=== PATIENT | female | born 1950 | race Caucasian/White ===

== ENCOUNTER 2020-08-04 18:10 | Inpatient (IN) | payer MEDICARE, OTHER ==
--- NOTE | 2020-08-04 18:53 | ED ---
SOB HPI - General Chief Complaint: Shortness of Breath Stated Complaint: ARCELIA Time Seen by Provider: 08/04/20 18:12 Source: patient, EMS, RN notes reviewed, old records reviewed Mode of arrival: EMS Limitations: altered mental status, physical limitation - History of Present Illness Initial Comments: This is a 62-year-old female DF for evaluation patient presents in significant distress secondary to shortness of breath occasional altered mental status, patient is a poor strain secondary to underlying clinical condition.history is obtained by EMS and patient's prior charting MD Complaint: shortness of breath -: unknown Severity: moderate Severity scale (1-10): 7 Consistency: constant Improves With: oxygen Worsens With: nothing Known History Of: COPD, asthma Context: recent URI Associated Symptoms: denies other symptoms - Related Data Home Medications Medication Instructions Recorded Confirmed Calcium Carbonate/Vitamin D3 1 tab PO BID 03/05/16 11/07/16 [Calcium 600-Vit D3 400 Tablet] Fludrocortisone [Florinef] 0.1 mg PO HS 03/05/16 11/07/16 LORazepam [Ativan] 1 mg PO DAILY PRN 03/05/16 11/07/16 Levothyroxine Sodium 112 mcg PO DAILY 03/05/16 11/07/16 Meloxicam 15 mg PO DAILY 03/05/16 11/07/16 Multivitamins, Thera [Multivitamin 1 tab PO DAILY 03/05/16 11/07/16 (formulary)] Nystatin 100,000 Unit/gm Powd 1 applic TOPICAL BID PRN 03/05/16 11/07/16 [Mycostatin Powder] Potassium Chloride 20 meq PO BID 03/05/16 11/07/16 Ranitidine HCl 150 mg PO BID 03/05/16 11/07/16 carBAMazepine [TEGretol] 200 mg PO BID 03/05/16 11/07/16 diphenhydrAMINE HCL 25 mg PO HS 03/05/16 11/07/16 [Diphenhydramine HCl] metOLazone [Metolazone] 5 mg PO DAILY 03/05/16 11/07/16 hydrOXYzine HCL [Atarax] 25 mg PO HS 03/19/16 11/07/16 Docusate [Colace] 200 mg PO HS 03/26/16 11/07/16 Ensure 1 can PO DAILY 03/26/16 11/07/16 Allergies Allergy/AdvReac Type Severity Reaction Status Date / Time ciprofloxacin [From Cipro] Allergy Unknown Verified 08/04/20 21:15 ciprofloxacin HCl Allergy Unknown Verified 08/04/20 21:15 [From Cipro] doxycycline Allergy Unknown Verified 08/04/20 21:15 Hydantoins Allergy Unknown Verified 08/04/20 21:15 levofloxacin [From Levaquin] Allergy Unknown Verified 08/04/20 21:15 penicillin V Allergy Unknown Verified 08/04/20 21:15 phenytoin sodium Allergy Unknown Verified 08/04/20 21:15 [From Dilantin] phenytoin sodium extended Allergy Unknown Verified 08/04/20 21:15 [From Dilantin] Quinolones Allergy Unknown Verified 08/04/20 21:15 Sulfa (Sulfonamide Allergy Unknown Verified 08/04/20 21:15 Antibiotics) sulfamethoxazole Allergy Unknown Verified 08/04/20 21:15 [From Bactrim] Tetracyclines Allergy Unknown Verified 08/04/20 21:15 trimethoprim [From Bactrim] Allergy Unknown Verified 08/04/20 21:15 yellow dye Allergy Unknown Verified 08/04/20 21:15 Review of Systems ROS Statement: Those systems with pertinent positive or pertinent negative responses have been documented in the HPI. ROS Other: All systems not noted in ROS Statement are negative. Past Medical History Past Medical History: Heart Failure, GERD/Reflux, Seizure Disorder, Thyroid Disorder Additional Past Medical History / Comment(s): past constipation and afc home stated past bowel obstruction,incont of urine,SACRAL WOUND, epilepsy no seizure in at least 2 years since shes been at [facility] severe mentally handicapped,cerebral palsy, w/c bound, ABLE TO TALK SOME AND STAFF STATED SHE IS REPETITVE WITH WORDS AT TIMES. ON A SOFT CHOPPED FOOD DIET, NEEDS TO BE WATCHED WHEN EATS BECAUSE SHE WILL SHOVE A LOT OF FOOD IN HER MOUTH AT ONE TIME AND NEED TO OFFER FLUIDS. History of Any Multi-Drug Resistant Organisms: MRSA Date of last positivie culture/infection: 07/05/2015 MDRO Source:: buttock Past Surgical History: Hysterectomy, Tonsillectomy Additional Past Surgical History / Comment(s): COLOSTOMY, i&d/closure of sacral wound, PEG tube recently Past Anesthesia/Blood Transfusion Reactions: No Reported Reaction Past Psychological History: No Psychological Hx Reported Smoking Status: Never smoker Past Alcohol Use History: None Reported Past Drug Use History: None Reported - Past Family History Father Family Medical History: Unable to Obtain Mother Family Medical History: Unable to Obtain General Exam Limitations: altered mental status, physical limitation General appearance: alert, in no apparent distress Head exam: Present: atraumatic, normocephalic, normal inspection Eye exam: Present: normal appearance, PERRL, EOMI. Absent: scleral icterus, conjunctival injection, periorbital swelling ENT exam: Present: normal exam, mucous membranes moist Neck exam: Present: normal inspection. Absent: tenderness, meningismus, lymphadenopathy Respiratory exam: Present: normal lung sounds bilaterally. Absent: respiratory distress, wheezes, rales, rhonchi, stridor Cardiovascular Exam: Present: regular rate, normal rhythm, normal heart sounds. Absent: systolic murmur, diastolic murmur, rubs, gallop, clicks GI/Abdominal exam: Present: soft, normal bowel sounds. Absent: distended, tenderness, guarding, rebound, rigid Extremities exam: Present: normal inspection, full ROM, normal capillary refill. Absent: tenderness, pedal edema, joint swelling, calf tenderness Back exam: Present: normal inspection Neurological exam: Present: alert, oriented X3, CN II-XII intact Psychiatric exam: Present: normal affect, normal mood Skin exam: Present: warm, dry, intact, normal color. Absent: rash Course Vital Signs 08/04/20 08/04/20 08/04/20 18:11 19:00 19:25 Temperature 98.7 F Pulse Rate 67 70 60 Respiratory 26 H 26 H 20 Rate Blood Pressure 132/68 115/71 O2 Sat by Pulse 100 94 L 100 Oximetry 08/04/20 08/04/20 20:57 21:06 Temperature Pulse Rate 68 68 Respiratory Rate Blood Pressure O2 Sat by Pulse Oximetry - Reevaluation(s) Reevaluation #1: 08/04/20 21:14 medical record is reviewed - Consultations Consultation #1: spoke joey Burnette re admission and he agrees Medical Decision Making - Medical Decision Making 62 female DF for evaluation patient resents today for evaluation regarding shortness of breath, found to be significantly hyponatremic dehydrated is altered mental status. Patient be admitted ICU for evaluation and management - Lab Data Result diagrams: 08/04/20 18:41 08/04/20 18:41 Lab Results 08/04/20 08/04/20 08/04/20 Range/Units 18:41 18:41 18:41 WBC 7.8 (3.8-10.6) k/uL RBC 3.68 L (3.80-5.40) m/uL Hgb 10.6 L (11.4-16.0) gm/dL Hct 32.5 L (34.0-46.0) % MCV 88.4 (80.0-100.0) fL MCH 28.7 (25.0-35.0) pg MCHC 32.5 (31.0-37.0) g/dL RDW 15.7 H (11.5-15.5) % Plt Count 225 (150-450) k/uL Neutrophils % 71 % Lymphocytes % 18 % Monocytes % 6 % Eosinophils % 1 % Basophils % 2 % Neutrophils # 5.6 (1.3-7.7) k/uL Lymphocytes # 1.4 (1.0-4.8) k/uL Monocytes # 0.5 (0-1.0) k/uL Eosinophils # 0.1 (0-0.7) k/uL Basophils # 0.2 (0-0.2) k/uL PT 10.6 (9.0-12.0) sec INR 1.0 (<1.2) APTT 30.0 (22.0-30.0) sec Sodium 115 L* (137-145) mmol/L Potassium 5.5 H (3.5-5.1) mmol/L Chloride 78 L (98-107) mmol/L Carbon Dioxide 31 H (22-30) mmol/L Anion Gap 6 mmol/L BUN 20 H (7-17) mg/dL Creatinine 0.39 L (0.52-1.04) mg/dL Est GFR (CKD-EPI)AfAm >90 (>60 ml/min/1.73 sqM) Est GFR (CKD-EPI)NonAf >90 (>60 ml/min/1.73 sqM) Glucose 143 H (74-99) mg/dL POC Glucose (mg/dL) (75-99) mg/dL POC Glu Change Management Coordinator ID Calcium 8.2 L (8.4-10.2) mg/dL Magnesium 1.5 L (1.6-2.3) mg/dL Total Bilirubin 0.5 (0.2-1.3) mg/dL AST 42 H (14-36) U/L ALT 29 (4-34) U/L Alkaline Phosphatase 193 H (38-126) U/L Creatine Kinase 47 (30-135) U/L Troponin I (0.000-0.034) ng/mL NT-Pro-B Natriuret Pep pg/mL Total Protein 6.8 (6.3-8.2) g/dL Albumin 3.6 (3.5-5.0) g/dL 08/04/20 08/04/20 08/04/20 Range/Units 18:41 18:41 19:04 WBC (3.8-10.6) k/uL RBC (3.80-5.40) m/uL Hgb (11.4-16.0) gm/dL Hct (34.0-46.0) % MCV (80.0-100.0) fL MCH (25.0-35.0) pg MCHC (31.0-37.0) g/dL RDW (11.5-15.5) % Plt Count (150-450) k/uL Neutrophils % % Lymphocytes % % Monocytes % % Eosinophils % % Basophils % % Neutrophils # (1.3-7.7) k/uL Lymphocytes # (1.0-4.8) k/uL Monocytes # (0-1.0) k/uL Eosinophils # (0-0.7) k/uL Basophils # (0-0.2) k/uL PT (9.0-12.0) sec INR (<1.2) APTT (22.0-30.0) sec Sodium (137-145) mmol/L Potassium (3.5-5.1) mmol/L Chloride (98-107) mmol/L Carbon Dioxide (22-30) mmol/L Anion Gap mmol/L BUN (7-17) mg/dL Creatinine (0.52-1.04) mg/dL Est GFR (CKD-EPI)AfAm (>60 ml/min/1.73 sqM) Est GFR (CKD-EPI)NonAf (>60 ml/min/1.73 sqM) Glucose (74-99) mg/dL POC Glucose (mg/dL) 150 H (75-99) mg/dL POC Glu Change Management Coordinator ID Guru Cristina Calcium (8.4-10.2) mg/dL Magnesium (1.6-2.3) mg/dL Total Bilirubin (0.2-1.3) mg/dL AST (14-36) U/L ALT (4-34) U/L Alkaline Phosphatase (38-126) U/L Creatine Kinase (30-135) U/L Troponin I <0.012 (0.000-0.034) ng/mL NT-Pro-B Natriuret Pep 1110 pg/mL Total Protein (6.3-8.2) g/dL Albumin (3.5-5.0) g/dL - EKG Data -: EKG Interpreted by Me (EKG is sinus rhythm 68 NC 154 QRS 74 QTc 425) - Radiology Data Radiology results: report reviewed (CXR and CT chest abd pelvis is positive for pneumonia), image reviewed Critical Care Time Critical Care Time: Yes Total Critical Care Time: 31 Disposition Clinical Impression: Hyponatremia, Weak, Dehydration, Community acquired pneumonia Disposition: ADMITTED IP TO THIS HOSP Condition: Fair Is patient prescribed a controlled substance at d/c from ED?: No Referrals: Vitaliy Mendes MD [Primary Care Provider] - 1-2 days
[2020-08-04 18:56] LABS: Basophils # (A) 0.2 k/uL (0-0.2); Basophils % (A) 2 %; Eosinophils # (A) 0.1 k/uL (0-0.7); Eosinophils % (A) 1 %; HCT 32.5 % (34.0-46.0); HGB 10.6 gm/dL (11.4-16.0); Lymphocytes # (A) 1.4 k/uL (1.0-4.8); Lymphocytes % (A) 18 %; MCH 28.7 pg (25.0-35.0); MCHC 32.5 g/dL (31.0-37.0); MCV 88.4 fL (80.0-100.0); Mean Platelet Volume 7.8; Monocytes # (A) 0.5 k/uL (0-1.0); Monocytes % (A) 6 %; Neutrophils # (A) 5.6 k/uL (1.3-7.7); Neutrophils % (A) 71 %; Platelet Count 225 k/uL (150-450); RBC 3.68 m/uL (3.80-5.40); RDW 15.7 % (11.5-15.5); WBC 7.8 k/uL (3.8-10.6)
--- NOTE | 2020-08-04 19:01 | XR ---
EXAMINATION TYPE: XR chest 2V DATE OF EXAM: 08/04/2020 COMPARISON: NONE HISTORY: Difficulty breathing TECHNIQUE: FINDINGS: There is poor inspiration and atelectasis at the lung bases. Pulmonary vascularity is diffi cult to evaluate. There is no definite pleural effusion. IMPRESSION: Significant atelectasis at the lung bases. Left lower lobe pneumonia is possible. No obvi ous heart failure.
[2020-08-04 19:06] LABS: Prothrombin Time 10.6 sec (9.0-12.0)
[2020-08-04 19:07] LABS: ALT 29 U/L (4-34); AST 42 U/L (14-36); African American GFR (CKD) >90 (>60 ml/min/1.73 sqM); Albumin 3.6 g/dL (3.5-5.0); Alkaline Phosphatase 193 U/L (38-126); Blood Urea Nitrogen 20 mg/dL (7-17); Calcium 8.2 mg/dL (8.4-10.2); Carbon Dioxide 31 mmol/L (22-30); Chloride 78 mmol/L (98-107); Creatine Kinase 47 U/L (30-135); Glucose 143 mg/dL (74-99); Magnesium 1.5 mg/dL (1.6-2.3); Non-African American GFR(CKD) >90 (>60 ml/min/1.73 sqM); Potassium 5.5 mmol/L (3.5-5.1); Total Bilirubin 0.5 mg/dL (0.2-1.3); Total Protein 6.8 g/dL (6.3-8.2)
[2020-08-04 19:07] LABS: Glucose,Whole Blood 150 mg/dL (75-99)
[2020-08-04] MEDS ORDERED: LORazepam 2 MG/ML INJ IV STA (19:09)
[2020-08-04] MEDS ORDERED: MORPHINE SULFATE 2 MG/ML SYRINGE IVP STA (19:11)
[2020-08-04 19:14] LABS: Anion Gap 6 mmol/L
[2020-08-04 19:20] LABS: Sodium 115 mmol/L (137-145)
[2020-08-04] MEDS ORDERED: NALOXONE 0.4 MG/ML 1 ML VIAL IV PRN (19:43)
[2020-08-04] MEDS ORDERED: IPRATROPIUM-ALBUTEROL 3 ML NEB INHALATION STA (19:54)
[2020-08-04] MEDS ORDERED: MORPHINE SULFATE 2 MG/ML SYRINGE IV PRN (19:54)
--- NOTE | 2020-08-04 20:40 | CT ---
EXAMINATION TYPE: CT ChestAbdPelvis w con DATE OF EXAM: 08/04/2020 COMPARISON: None HISTORY: pain/sob CT DLP: 1683.5 mGycm Automated exposure control for dose reduction was used. CONTRAST: Performed with IV Contrast, patient injected with 100 mL of Isovue 300. Exam limited by motion. There is patchy infiltrate and atelectasis in both lungs. There is poor inspi ration and elevation of the left and right diaphragm. There is no mediastinal adenopathy. There are n o hilar masses. Heart size is fairly normal. There is interposition of the hepatic flexure of the col on. Spleen is intact. There is no focal liver defect. The bile ducts are not dilated. Gallbladder tin ears absent. There is gastrostomy tube noted. There is gastrostomy tube balloon that appears embedded in the abdominal wall. The tip of the gastrostomy tube is barely inside the stomach. There is no evidence of pancreatic mass. There is no adrenal mass. Kidneys show satisfactory contrast opacification. There is no hydronephrosis. Delayed images show normal renal excretion. Bladder diste nds smoothly. There is no inguinal hernia. There is no free fluid in the pelvis. There is no mesenter ic edema. There is no ascites or free air. There is no bowel obstruction. There is Loop colostomy In the left mid abdomen. there is rectal stump. There is some osteopenia and mild compression deformity of multiple lumbar and lower thoracic vertebr a. There is up to 25% loss of height. The bony pelvis is intact. The hip joints are intact. IMPRESSION: Poor inspiration with significant elevation of the diaphragms. Bilateral pulmonary atelectasis and in filtrate. Gastrostomy tube appears to be malpositioned and almost outside of the stomach.
--- NOTE | 2020-08-04 22:09 | XR ---
EXAMINATION TYPE: XR KUB DATE OF EXAM: 08/04/2020 COMPARISON: 05/26/2010 HISTORY: PEG tube injection TECHNIQUE: FINDINGS: There is some contrast in the stomach. There is no evidence of contrast extravasation. Ther e is contrast in both kidneys and ureters. Ladder distends smoothly without contrast. There is no sig n of intestinal obstruction or pneumoperitoneum. IMPRESSION: Nonacute abdomen. No evidence of contrast extravasation. PEG tube is not visible.
[2020-08-04 22:18] LABS: T4, Free (Free Thyroxine) 1.54 ng/dL (0.78-2.19)
[2020-08-04] MEDS: CEFEPIME 1 GM in SODIUM CHLORIDE 0.9% 50 ML IVPB SCH (22:24)
[2020-08-05 03:00] LABS: Basophils # (A) 0.2 k/uL (0-0.2); Basophils % (A) 3 %; Eosinophils # (A) 0.1 k/uL (0-0.7); Eosinophils % (A) 1 %; HCT 28.6 % (34.0-46.0); HGB 9.4 gm/dL (11.4-16.0); Lymphocytes # (A) 1.3 k/uL (1.0-4.8); Lymphocytes % (A) 16 %; MCH 29.4 pg (25.0-35.0); MCHC 32.9 g/dL (31.0-37.0); MCV 89.4 fL (80.0-100.0); Mean Platelet Volume 8.2; Monocytes # (A) 0.9 k/uL (0-1.0); Monocytes % (A) 11 %; Neutrophils # (A) 5.4 k/uL (1.3-7.7); Neutrophils % (A) 67 %; Platelet Count 220 k/uL (150-450); RDW 15.4 % (11.5-15.5); WBC 8.1 k/uL (3.8-10.6)
[2020-08-05 03:03] LABS: ALT 29 U/L (4-34); AST 44 U/L (14-36); African American GFR (CKD) >90 (>60 ml/min/1.73 sqM); Albumin 3.4 g/dL (3.5-5.0); Alkaline Phosphatase 194 U/L (38-126); Anion Gap 5 mmol/L; Blood Urea Nitrogen 21 mg/dL (7-17); Calcium 8.3 mg/dL (8.4-10.2); Carbon Dioxide 31 mmol/L (22-30); Chloride 79 mmol/L (98-107); Glucose 117 mg/dL (74-99); Magnesium 1.6 mg/dL (1.6-2.3); Non-African American GFR(CKD) >90 (>60 ml/min/1.73 sqM); Phosphorus 3.7 mg/dL (2.5-4.5); Potassium 5.9 mmol/L (3.5-5.1); Total Bilirubin 0.5 mg/dL (0.2-1.3); Total Protein 6.7 g/dL (6.3-8.2)
[2020-08-05 03:06] LABS: Sodium 115 mmol/L (137-145)
[2020-08-05] MEDS ORDERED: MAGNESIUM SULFATE-D5W PMX 1 GM in DEXTROSE/WATER 1 100ML.BAG IVPB ONE (03:34)
--- NOTE | 2020-08-05 03:35 | P.HPIM ---
History of Present Illness H&P Date: 08/04/20 Patient is a 70-year-old female with a PMH of cerebral palsy, paraplegic, minimally verbal, with a gastrostomy tube resident of [facility] in [place] who was sent to the emergency room due to shortness of breath. History obtained by the public guardian (Melva at [phone]). The patient was not answering questions or following commands. The public guardian reported that the patient is essentially bedbound and was noted to be short of breath and in some respiratory distress at the [facility], when they decided to send her to the emergency room. In the emergency room the chest, abdomen, and pelvis CT revealed bilateral pulmonary atelectasis and infiltrates. EKG revealed normal sinus rhythm at [address]/T-wave changes noted. Laboratory evaluation revealed a sodium of 115, potassium 5.5, chloride 78, CO2 31, BUN 20, creatinine 0.39, glucose 143, magnesium 1.5, with TSH 10.8, and cortisol 26. Discussed with the [facility] staff, no known head trauma noted. Review of Systems ROS unobtainable: due to mental status Past Medical History Past Medical History: Heart Failure, GERD/Reflux, Seizure Disorder, Thyroid Disorder Additional Past Medical History / Comment(s): past constipation and afc home stated past bowel obstruction,incont of urine,SACRAL WOUND, epilepsy no seizure in at least 2 years since shes been at [facility] severe mentally mckenzie ndicapped,cerebral palsy, w/c bound, ABLE TO TALK SOME AND STAFF STATED SHE IS REPETITVE WITH WORDS AT TIMES. ON A SOFT CHOPPED FOOD DIET, NEEDS TO BE WATCHED WHEN EATS BECAUSE SHE WILL SHOVE A LOT OF FOOD IN HER MOUTH AT ONE TIME AND NEED TO OFFER FLUIDS. History of Any Multi-Drug Resistant Organisms: MRSA Date of last positivie culture/infection: 07/05/2015 MDRO Source:: buttock Past Surgical History: Hysterectomy, Tonsillectomy Additional Past Surgical History / Comment(s): COLOSTOMY, i&d/closure of sacral wound, PEG tube recently Past Anesthesia/Blood Transfusion Reactions: No Reported Reaction Past Psychological History: No Psychological Hx Reported Smoking Status: Never smoker Past Alcohol Use History: None Reported Past Drug Use History: None Reported - Past Family History Father Family Medical History: Unable to Obtain Mother Family Medical History: Unable to Obtain Medications and Allergies Home Medications Medication Instructions Recorded Confirmed Type Fludrocortisone [Florinef] 0.1 mg PEG/G-TUBE DAILY 03/05/16 08/04/20 History LORazepam [Ativan] 1 mg PEG/G-TUBE DAILY PRN 03/05/16 08/04/20 History Levothyroxine Sodium 112 mcg PEG/G-TUBE DAILY 03/05/16 08/04/20 History Acetaminophen Tab [Tylenol] 650 mg PEG/G-TUBE Q4H PRN 08/04/20 08/04/20 History Amiodarone [Cordarone] 200 mg PEG/G-TUBE DAILY 08/04/20 08/04/20 History Apixaban [Eliquis] 5 mg PEG/G-TUBE BID 08/04/20 08/04/20 History Aspirin EC [Ecotrin Low Dose] 81 mg PEG/G-TUBE DAILY 08/04/20 08/04/20 History Atorvastatin Calcium [Lipitor] 40 mg PEG/G-TUBE HS 08/04/20 08/04/20 History Azithromycin [Zithromax] See Taper PEG/G-TUBE HS 08/04/20 08/04/20 History Baclofen [Lioresal] 20 mg PEG/G-TUBE BID 08/04/20 08/04/20 History Eslicarbazepine Acetate [Aptiom] 600 mg PEG/G-TUBE DAILY 08/04/20 08/04/20 His tory Famotidine [Pepcid] 20 mg PEG/G-TUBE BID 08/04/20 08/04/20 History Furosemide [Lasix] 20 mg PEG/G-TUBE BID 08/04/20 08/04/20 History Ibuprofen [Motrin Ib] 200 mg PEG/G-TUBE Q6H PRN 08/04/20 08/04/20 History Ketoconazole 2% Cream [Nizoral 2%] 1 applic TOPICAL BID PRN 08/04/20 08/04/20 Hi story Losartan Potassium 50 mg PEG/G-TUBE Q12H 08/04/20 08/04/20 History Magnesium Hydroxide [Milk of 2,400 mg PEG/G-TUBE Q72H 08/04/20 08/04/20 History Magnesia] Magnesium Oxide 400 mg PEG/G-TUBE Q12H 08/04/20 08/04/20 History Metoprolol Tartrate [Lopressor] 75 mg PEG/G-TUBE Q12H 08/04/20 08/04/20 History Potassium Chloride See Taper PEG/G-TUBE DIRECTED 08/04/20 08/04/20 History Sennosides [Senna] 17.2 mg PEG/G-TUBE HS 08/04/20 08/04/20 History guaiFENesin [guaiFENesin Oral 200 mg PEG/G-TUBE Q4H PRN 08/04/20 08/04/20 History Solution] polyethylene glycoL 3350 [Miralax] 17 gm PEG/G-TUBE DAILY 08/04/20 08/04/20 History Allergies Allergy/AdvReac Type Severity Reaction Status Date / Time ciprofloxacin [From Cipro] Allergy Unknown Verified 08/04/20 21:15 ciprofloxacin HCl Allergy Unknown Verified 08/04/20 21:15 [From Cipro] doxycycline Allergy Unknown Verified 08/04/20 21:15 Hydantoins Allergy Unknown Verified 08/04/20 21:15 levofloxacin [From Levaquin] Allergy Unknown Verified 08/04/20 21:15 penicillin V Allergy Unknown Verified 08/04/20 21:15 phenytoin sodium Allergy Unknown Verified 08/04/20 21:15 [From Dilantin] phenytoin sodium extended Allergy Unknown Verified 08/04/20 21:15 [From Dilantin] Quinolones Allergy Unknown Verified 08/04/20 21:15 Sulfa (Sulfonamide Allergy Unknown Verified 08/04/20 21:15 Antibiotics) sulfamethoxazole Allergy Unknown Verified 08/04/20 21:15 [From Bactrim] Tetracyclines Allergy Unknown Verified 08/04/20 21:15 trimethoprim [From Bactrim] Allergy Unknown Verified 08/04/20 21:15 yellow dye Allergy Unknown Verified 08/04/20 21:15 Physical Exam Vitals: Vital Signs Temp Pulse Resp BP Pulse Ox 08/04/20 21:06 68 08/04/20 20:57 68 08/04/20 20:25 68 20 130/87 94 L 08/04/20 19:25 60 20 100 08/04/20 19:00 70 26 H 115/71 94 L 08/04/20 18:11 98.7 F 67 26 H 132/68 100 Intake and Output 08/04/20 08/04/20 08/04/20 06:59 14:59 22:59 Other: Weight 90.718 kg General: Elderly female, chronically ill appearing, no distress, appears at stated age, obese Derm: no unusual rashes/lesions no unusual ecchymoses, warm, dry, Head: atraumatic, normocephalic, symmetric Eyes: EOMI, no lid lag, anicteric sclera, pupils equal round reactive to light ENT: Nose and ears atraumatic, no thrush, no pharyngeal erythema Neck: No thyromegaly, no cervical lymphadenopathy, trachea midline, supple Mouth: no lip lesion, mucus membranes dry Cardiovascular: S1S2 reg, no murmur, positive posterior tibial pulse bilateral, no edema, capillary refill less than 2 seconds Lungs: Bilateral scattered rhonchi,, no rales , no accessory muscle use Abdominal: soft, gastrotomy tube in plac,e nontender to palpation, no guarding, no appreciable organomegaly, normal bowel sounds Ext: Bilateral lower extremity wasting noted, lower extremity contractures Neuro: Not following commands, answering very basic questions Results CBC & Chem 7: 08/05/20 02:14 08/05/20 02:14 Labs: Abnormal Lab Results - Last 24 Hours (Table) 08/04/20 08/04/20 08/04/20 Range/Units 18:41 18:41 19:04 RBC 3.68 L (3.80-5.40) m/uL Hgb 10.6 L (11.4-16.0) gm/dL Hct 32.5 L (34.0-46.0) % RDW 15.7 H (11.5-15.5) % Sodium 115 L* (137-145) mmol/L Potassium 5.5 H (3.5-5.1) mmol/L Chloride 78 L (98-107) mmol/L Carbon Dioxide 31 H (22-30) mmol/L BUN 20 H (7-17) mg/dL Creatinine 0.39 L (0.52-1.04) mg/dL Glucose 143 H (74-99) mg/dL POC Glucose (mg/dL) 150 H (75-99) mg/dL Calcium 8.2 L (8.4-10.2) mg/dL Magnesium 1.5 L (1.6-2.3) mg/dL AST 42 H (14-36) U/L Alkaline Phosphatase 193 H (38-126) U/L Assessment and Plan Plan: Severe hypochloremic hyponatremia in setting of pneumonia and dehydration -Obtain urine creatinine, sodium, and urea. Obtain serum and urine osmolality. Calculate FeNa once results available. -Neurochecks q4h -Monitor BMP q6h -Admit to MICU -Nephrology consult -Avoid over-correction with goal of no more than 6 mEq in 24 hours -NS infusion @ 50 ml/hr Shortness of breath, likely secondary to pneumonia -C/w Cefepime -F/u blood culture -Test for Coronavirus Hypomagnesemia -Replace and monitor PEG tube malpositioned -Tube re-inserted into stomach by ED staff -Repeat X-ray with contrast injection noted no extravasation DVT prophylaxis -Eliquis The patient is admitted with an anticipated greater than 2 midnight stay for evaluation of hyponatremia CODE STATUS: Full Code Discussed with: Public guardian Anticipated discharge date: 3-[address]: senior living A total of 50 minutes was spent on the care of this complex patient more than 50% of the time was spent in counseling and care coordination.
[2020-08-05] MEDS ORDERED: SODIUM CHLORIDE 0.9% 250 ML IV SCH (03:45)
[2020-08-05] MEDS ORDERED: CALCIUM GLUCONATE 1 GM in SODIUM CHLORIDE 0.9% 100 ML IVPB ONE (03:55)
[2020-08-05] MEDS ORDERED: SODIUM POLYSTYRENE SULFONATE 15 GM/60 ML BOTTLE PEG/G-TUBE STA (04:07)
[2020-08-05 04:46] LABS: Creatinine,Urine Random 39.6 mg/dL
--- NOTE | 2020-08-05 04:46 | CT ---
EXAM: CT Head Without Intravenous Contrast CLINICAL HISTORY: ITS.REASON CT Reason: Severe hyponatremia, check for brain lesions TECHNIQUE: Axial computed tomography images of the head/brain without intravenous contrast. CTDI is 49.27 mGy and DLP is 1157.40 mGy-cm. This CT exam was performed using one or more of the following dose reduction techniques: automated exposure control, adjustment of the mA and/or kV according to patient size, and/or use of iterative reconstruction technique. Coronal and sagittal reformatted images were created and reviewed. COMPARISON: No relevant prior studies available. 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 No hemorrhage. Ventricles: Severe ventriculomegaly with cortical thinning in periventricular gliosis, worse in frontal lobes. Bones/joints: Unremarkable. No acute fracture. Soft tissues: Unremarkable. Sinuses: Small air-fluid level in left maxillary sinus. Mastoid air cells: Opacification of right mastoid air cells. 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 No intracranial mass lesion identified. If this remains a concern, MRI may help to further evaluate if patient is a candidate.
[2020-08-05] MEDS ORDERED: LEVOTHYROXINE 112 MCG TAB PEG/G-TUBE SCH (06:30)
[2020-08-05] MEDS: IPRATROPIUM-ALBUTEROL 3 ML NEB INHALATION SCH ×4 (07:25→21:02)
[2020-08-05] MEDS ORDERED: CLOTRIMAZOLE 1% CREAM 15 GM TUBE TOPICAL PRN (07:48)
[2020-08-05] MEDS ORDERED: LORazepam 1 MG TAB PEG/G-TUBE PRN (07:48)
[2020-08-05 08:09] LABS: Glucose,Whole Blood 100 mg/dL (75-99)
[2020-08-05 09:48] LABS: African American GFR (CKD) >90 (>60 ml/min/1.73 sqM); Anion Gap 2 mmol/L; Blood Urea Nitrogen 17 mg/dL (7-17); Calcium 7.9 mg/dL (8.4-10.2); Carbon Dioxide 32 mmol/L (22-30); Chloride 83 mmol/L (98-107); Glucose 94 mg/dL (74-99); Magnesium 1.6 mg/dL (1.6-2.3); Non-African American GFR(CKD) >90 (>60 ml/min/1.73 sqM); Potassium 4.9 mmol/L (3.5-5.1)
[2020-08-05 10:05] LABS: Sodium 117 mmol/L (137-145)
[2020-08-05] MEDS ORDERED: SODIUM CHLORIDE 0.9% 1,000 ML IV SCH (12:15)
--- NOTE | 2020-08-05 12:19 | P.PN ---
Subjective Progress Note Date: 08/05/20 Patient was seen and evaluated by me in the ICU. She is awake and alert. She was placed on BiPAP this morning. She was on high flow nasal cannula at 15 L before that and was having episodes of apnea. Patient denies any pain or discomfort. Objective - Vital Signs Vital signs: Vital Signs Temp 98.4 F 08/05/20 06:49 Pulse 67 08/05/20 12:05 Resp 29 H 08/05/20 08:20 BP 118/69 08/05/20 06:49 Pulse Ox 97 08/05/20 08:20 Intake & Output 08/04/20 08/05/20 08/05/20 18:59 06:59 18:59 Weight 90.718 kg - Exam General: The patient is awake and alert, she appears chronically ill Eye: there is normal conjunctiva bilaterally. Neck: The neck is supple, there is no JVD. Cardiovascular: Normal S1-S2, no S3-S4, no murmurs. Respiratory: Lungs with BiPAP sounds Gastrointestinal: Abdomen is soft, nontender Musculoskeletal: There is +1 pedal edema. Skin: Skin is warm and dry - Labs CBC & Chem 7: 08/05/20 02:14 08/05/20 08:20 Labs: Abnormal Lab Results - Last 24 Hours (Table) 08/04/20 08/04/20 08/04/20 Range/Units 18:41 18:41 18:41 RBC 3.68 L (3.80-5.40) m/uL Hgb 10.6 L (11.4-16.0) gm/dL Hct 32.5 L (34.0-46.0) % RDW 15.7 H (11.5-15.5) % Sodium 115 L* (137-145) mmol/L Potassium 5.5 H (3.5-5.1) mmol/L Chloride 78 L (98-107) mmol/L Carbon Dioxide 31 H (22-30) mmol/L BUN 20 H (7-17) mg/dL Creatinine 0.39 L (0.52-1.04) mg/dL Glucose 143 H (74-99) mg/dL POC Glucose (mg/dL) (75-99) mg/dL Osmolality (280-301) mosm/kg Calcium 8.2 L (8.4-10.2) mg/dL Magnesium 1.5 L (1.6-2.3) mg/dL AST 42 H (14-36) U/L Alkaline Phosphatase 193 H (38-126) U/L Albumin (3.5-5.0) g/dL TSH 10.800 H (0.465-4.680) mIU/L 08/04/20 08/05/20 08/05/20 Range/Units 19:04 02:14 02:14 RBC 3.20 L (3.80-5.40) m/uL Hgb 9.4 L (11.4-16.0) gm/dL Hct 28.6 L (34.0-46.0) % RDW (11.5-15.5) % Sodium 115 L* (137-145) mmol/L Potassium 5.9 H (3.5-5.1) mmol/L Chloride 79 L (98-107) mmol/L Carbon Dioxide 31 H (22-30) mmol/L BUN 21 H (7-17) mg/dL Creatinine 0.37 L (0.52-1.04) mg/dL Glucose 117 H (74-99) mg/dL POC Glucose (mg/dL) 150 H (75-99) mg/dL Osmolality (280-301) mosm/kg Calcium 8.3 L (8.4-10.2) mg/dL Magnesium (1.6-2.3) mg/dL AST 44 H (14-36) U/L Alkaline Phosphatase 194 H (38-126) U/L Albumin 3.4 L (3.5-5.0) g/dL TSH (0.465-4.680) mIU/L 08/05/20 08/05/20 08/05/20 Range/Units 03:47 08:07 08:20 RBC (3.80-5.40) m/uL Hgb (11.4-16.0) gm/dL Hct (34.0-46.0) % RDW (11.5-15.5) % Sodium 117 L* (137-145) mmol/L Potassium (3.5-5.1) mmol/L Chloride 83 L (98-107) mmol/L Carbon Dioxide 32 H (22-30) mmol/L BUN (7-17) mg/dL Creatinine 0.32 L (0.52-1.04) mg/dL Glucose (74-99) mg/dL POC Glucose (mg/dL) 100 H (75-99) mg/dL Osmolality 250 L (280-301) mosm/kg Calcium 7.9 L (8.4-10.2) mg/dL Magnesium (1.6-2.3) mg/dL AST (14-36) U/L Alkaline Phosphatase (38-126) U/L Albumin (3.5-5.0) g/dL TSH (0.465-4.680) mIU/L Assessment and Plan Assessment: Patient is a 70-year-old female with a PMH of cerebral palsy, paraplegic, minimally verbal, with a gastrostomy tube resident of [facility] who was sent to the emergency room due to shortness of breath. Patient has a public guardian (Melva at [phone]). Patient was evaluated in the ER and admitted to the hospital for further management of her medical problems noted below 1. Acute hypoxic respiratory failure, currently on BiPAP. Continue to monitor in the ICU. Managed by pulmonology. 2. Left lower lobe pneumonia, with concerns about aspiration. Started on broad-spectrum antibiotic with cefepime and clindamycin. Pro-calcitonin and blood culture pending. Coronavirus PCR negative 3. Severe hyponatremia with sodium level of 115 on presentation. Hypovolemic hyponatremia. Nephrology consulted. Avoid overcorrection. Currently on IV fl uid with normal saline at 60 mg per hour. 4. Hypomagnesemia, replacement ordered. Repeat lab work in the morning. 5. PEG tube malpositioned, adjusted by ED physician. Gen. surgery consulted for further evaluation. Repeat x-ray with contrast showed no evidence of extravasation 6. History of cerebral palsy with severe intellectual disability chronically nonverbal Chronic medical problems: Hypothyroidism, hyperlipidemia, chronic anticoagulation with Eliquis. Continue home medication
--- NOTE | 2020-08-05 12:20 | P.CNPUL ---
History of Present Illness Consult date: 08/05/20 Requesting physician: Marcia Steele Reason for consult: pneumonia Chief complaint: Shortness of breath History of present illness: This is a 70-year-old female with history of multiple medical problems, patient is paraplegic, known history of cerebral palsy, resides at [facility] in [place]. Patient was sent to the ER mostly because she was noted to have shortness of breath, and noted to have in respiratory distress at the longterm. Patient was sent to the ER, and she had multiple abnormal findings including abnormal chest x-ray showing bibasilar atelectasis/infiltrates. Abnormal CT of the abdomen and pelvis confirming the same, abnormal electrolytes with low sodium of 1:15 and elevated potassium of 5.5. Abnormal TSH. Patient had a chronic indwelling PEG tube, and she had a colostomy in place. The patient is nonverbal, considering the multiple abnormalities noted patient was admitted to the ICU, and I was asked to see her on consultation. Upon my initial evaluation, the patient was noted to be in respiratory distress, seems to be working hard to take a deep breath. She was on a Ventimask, and I recommended switching the Ventimask to a BiPAP with IPAP o f 12 and EPAP of 6, and FiO2 of 40%. As soon as the patient was placed on BiPAP, there was clearly evidence of improvement in her respiratory status and was not working as hard to breathe. Hence kept on BiPAP. Reviewed her chest x- ray patient may have paralyzed diaphragms since they seem to be extremely elevated on both sides. Patient may also have aspiration pneumonia although the patient is nothing by mouth, and she has a PEG tube in place used for nutritional support. Hence I recommended broadening the spectrum of coverage with antibiotics, added clindamycin to her cefepime. Patient has multiple ALLERGIES including ALLERGY to penicillin. In the ER, patient was given IV fluids in the form of 0.9 normal saline, she was noted to be clinically dehydrated, repeat sodium in the ICU came up to 117 from 115 on admission. And her potassium came down to 4.9 from 5.9. PCR for covid 19 came back negative. Review of Systems ROS unobtainable: due to mental status Past Medical History Past Medical History: Heart Failure, GERD/Reflux, Seizure Disorder, Thyroid Disorder Additional Past Medical History / Comment(s): past constipation and afc home stated past bowel obstruction,incont of urine,SACRAL WOUND, epilepsy no seizure in at least 2 years since shes been at [facility]., severe mentally handicapped,cerebral palsy, w/c bound, ABLE TO TALK SOME AND STAFF STATED SHE IS REPETITVE WITH WORDS AT TIMES. ON A SOFT CHOPPED FOOD DIET, NEEDS TO BE WATCHED WHEN EATS BECAUSE SHE WILL SHOVE A LOT OF FOOD IN HER MOUTH AT ONE TIME AND NEED TO OFFER FLUIDS. History of Any Multi-Drug Resistant Organisms: MRSA Date of last positivie culture/infection: 07/05/2015 MDRO Source:: buttock Past Surgical History: Hysterectomy, Tonsillectomy Additional Past Surgical History / Comment(s): COLOSTOMY, i&d/closure of sacral wound, PEG tube recently Past Anesthesia/Blood Transfusion Reactions: No Reported Reaction Past Psychological History: No Psychological Hx Reported Smoking Status: Never smoker Past Alcohol Use History: None Reported Past Drug Use History: None Reported - Past Family History Father Family Medical History: Unable to Obtain Mother Family Medical History: Unable to Obtain Medications and Allergies Home Medications Medication Instructions Recorded Confirmed Type Fludrocortisone [Florinef] 0.1 mg PEG/G-TUBE DAILY 03/05/16 08/04/20 History LORazepam [Ativan] 1 mg PEG/G-TUBE DAILY PRN 03/05/16 08/04/20 History Levothyroxine Sodium 112 mcg PEG/G-TUBE DAILY 03/05/16 08/04/20 History Acetaminophen Tab [Tylenol] 650 mg PEG/G-TUBE Q4H PRN 08/04/20 08/04/20 History Amiodarone [Cordarone] 200 mg PEG/G-TUBE DAILY 08/04/20 08/04/20 History Apixaban [Eliquis] 5 mg PEG/G-TUBE BID 08/04/20 08/04/20 History Aspirin EC [Ecotrin Low Dose] 81 mg PEG/G-TUBE DAILY 08/04/20 08/04/20 History Atorvastatin Calcium [Lipitor] 40 mg PEG/G-TUBE HS 08/04/20 08/04/20 History Azithromycin [Zithromax] See Taper PEG/G-TUBE HS 08/04/20 08/04/20 History Baclofen [Lioresal] 20 mg PEG/G-TUBE BID 08/04/20 08/04/20 History Eslicarbazepine Acetate [Aptiom] 600 mg PEG/G-TUBE DAILY 08/04/20 08/04/20 History Famotidine [Pepcid] 20 mg PEG/G-TUBE BID 08/04/20 08/04/20 History Furosemide [Lasix] 20 mg PEG/G-TUBE BID 08/04/20 08/04/20 History Ibuprofen [Motrin Ib] 200 mg PEG/G-TUBE Q6H PRN 08/04/20 08/04/20 History Ketoconazole 2% Cream [Nizoral 2%] 1 applic TOPICAL BID PRN 08/04/20 08/04/20 History Losartan Potassium 50 mg PEG/G-TUBE Q12H 08/04/20 08/04/20 History Magnesium Hydroxide [Milk of 2,400 mg PEG/G-TUBE Q72H 08/04/20 08/04/20 History Magnesia] Magnesium Oxide 400 mg PEG/G-TUBE Q12H 08/04/20 08/04/20 History Metoprolol Tartrate [Lopressor] 75 mg PEG/G-TUBE Q12H 08/04/20 08/04/20 History Potassium Chloride See Taper PEG/G-TUBE DIRECTED 08/04/20 08/04/20 History Sennosides [Senna] 17.2 mg PEG/G-TUBE HS 08/04/20 08/04/20 History guaiFENesin [guaiFENesin Oral 200 mg PEG/G-TUBE Q4H PRN 08/04/20 08/04/20 History Solution] polyethylene glycoL 3350 [Miralax] 17 gm PEG/G-TUBE DAILY 08/04/20 08/04/20 History Allergies Allergy/AdvReac Type Severity Reaction Status Date / Time ciprofloxacin [From Cipro] Allergy Unknown Verified 08/04/20 21:15 ciprofloxacin HCl Allergy Unknown Verified 08/04/20 21:15 [From Cipro] doxycycline Allergy Unknown Verified 08/04/20 21:15 Hydantoins Allergy Unknown Verified 08/04/20 21:15 levofloxacin [From Levaquin] Allergy Unknown Verified 08/04/20 21:15 penicillin V Allergy Unknown Verified 08/04/20 21:15 phenytoin sodium Allergy Unknown Verified 08/04/20 21:15 [From Dilantin] phenytoin sodium extended Allergy Unknown Verified 08/04/20 21:15 [From Dilantin] Quinolones Allergy Unknown Verified 08/04/20 21:15 Sulfa (Sulfonamide Allergy Unknown Verified 08/04/20 21:15 Antibiotics) sulfamethoxazole Allergy Unknown Verified 08/04/20 21:15 [From Bactrim] Tetracyclines Allergy Unknown Verified 08/04/20 21:15 trimethoprim [From Bactrim] Allergy Unknown Verified 08/04/20 21:15 yellow dye Allergy Unknown Verified 08/04/20 21:15 Physical Exam Vitals: Vital Signs Temp Pulse Resp BP Pulse Ox 08/05/20 11:48 64 08/05/20 08:20 74 29 H 97 08/05/20 08:10 72 23 98 08/05/20 08:07 98 08/05/20 07:33 70 08/05/20 07:27 69 08/05/20 06:49 98.4 F 66 18 118/69 97 08/05/20 06:13 69 16 115/69 97 08/05/20 03:48 89 99/68 100 08/05/20 00:46 67 20 102/65 96 08/04/20 22:30 67 20 128/70 98 08/04/20 21:06 68 08/04/20 20:57 68 08/04/20 20:25 68 20 130/87 94 L 08/04/20 19:25 60 20 100 08/04/20 19:00 70 26 H 115/71 94 L 08/04/20 18:11 98.7 F 67 26 H 132/68 100 Intake and Output 08/04/20 08/05/20 08/05/20 22:59 06:59 14:59 Other: Weight 90.718 kg General: Revealed a 62-year-old female with flexion contractures, nonverbal, in mild to moderate respiratory distress on the Ventimask. Improved when placed on BiPAP. Head: atraumatic, normocephalic, Eyes: PERRLA, EOMI, no icterus. ENT: Dry mucous membranes, no neck masses, no JVD, no stridor. Throat is clear. Neck: Supple, no neck masses. No lymphadenopathy.. Cardiovascular: Normal S1 and S2, no S3 gallop. Lungs: Diminished breath sounds bilaterally crackles at the bases. Abdominal: Soft, gastrostomy tube is noted, and there is evidence of colostomy. Surgical scars noted in mid abdomen. Ext: Lower extremities and upper extremities contractures noted. Neuro: Awake, nonverbal, does not follow any instructions. Skin: No rashes. Results - Laboratory Findings CBC and BMP: 08/05/20 02:14 08/05/20 08:20 PT/INR, D-dimer PT 10.6 sec (9.0-12.0) 08/04/20 18:41 INR 1.0 (<1.2) 08/04/20 18:41 Abnormal lab findings: Abnormal Labs 08/04/20 08/04/20 08/04/20 18:41 18:41 18:41 RBC 3.68 L Hgb 10.6 L Hct 32.5 L RDW 15.7 H Sodium 115 L* Potassium 5.5 H Chloride 78 L Carbon Dioxide 31 H BUN 20 H Creatinine 0.39 L Glucose 143 H POC Glucose (mg/dL) Osmolality Calcium 8.2 L Magnesium 1.5 L AST 42 H Alkaline Phosphatase 193 H Albumin TSH 10.800 H 08/04/20 08/05/20 08/05/20 19:04 02:14 02:14 RBC 3.20 L Hgb 9.4 L Hct 28.6 L RDW Sodium 115 L* Potassium 5.9 H Chloride 79 L Carbon Dioxide 31 H BUN 21 H Creatinine 0.37 L Glucose 117 H POC Glucose (mg/dL) 150 H Osmolality Calcium 8.3 L Magnesium AST 44 H Alkaline Phosphatase 194 H Albumin 3.4 L TSH 08/05/20 08/05/20 08/05/20 03:47 08:07 08:20 RBC Hgb Hct RDW Sodium 117 L* Potassium Chloride 83 L Carbon Dioxide 32 H BUN Creatinine 0.32 L Glucose POC Glucose (mg/dL) 100 H Osmolality 250 L Calcium 7.9 L Magnesium AST Alkaline Phosphatase Albumin TSH - Diagnostic Findings Chest x-ray: image reviewed (As noted in HPI.) Assessment and Plan Assessment: Impression: Bibasilar pneumonia, strongly suspect aspiration pneumonia. 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 Severe hypovolemic hyponatremia and hyperkalemia, patient is hypovolemic on presentation, hence I believe the patient will improve with fluid replacement and she is on 0.9 normal saline, given multiple fluid boluses in the ER. We'll continue with 0.9 normal saline and continue to monitor sodium closely. Malpositioning of the PEG tube as noted on the CT of the abdomen and pelvis, will recommend surgical evaluation for evaluation of the PEG tube before usage. Hypothyroidism, patient will be placed on a higher dose of levothyroxine, dose was increased from 112 g to 125. Medical debility secondary to cerebral palsy and paraplegia. Recommendation: Placed patient on BiPAP with IPAP of 12 and EPAP of 6 and FiO2 at 40% titrate accordingly. Start antibiotics patient is now on cefepime and will add clindamycin. Surgical evaluation for malpositioning of the PEG tube. Monitor sodium and adjust IV fluids accordingly, slow correction is preferable. Continue for the time being intravenous fluid at 0.9 normal saline. Repeat chest x-ray in the next 24 hours. Continue to monitor in the ICU. GI and DVT prophylaxis. Prognosis is definitely guarded. We will continue to follow Time with Patient: Greater than 30
[2020-08-05] MEDS: METOPROLOL TARTRATE 50 MG TAB PEG/G-TUBE SCH ×2 (12:39→22:29)
[2020-08-05] MEDS: FLUDROCORTISONE 0.1 MG TAB PEG/G-TUBE SCH (12:39)
[2020-08-05] MEDS: polyethylene glycoL 3350 17 GM POWD.PACK PEG/G-TUBE SCH (12:39)
[2020-08-05] MEDS: FAMOTIDINE 20 MG TAB PEG/G-TUBE SCH ×2 (12:39→22:29)
[2020-08-05] MEDS: AMIODARONE 200 MG TAB PEG/G-TUBE SCH (12:39)
[2020-08-05] MEDS: APIXABAN 5 MG TAB PEG/G-TUBE SCH ×2 (12:39→22:28)
[2020-08-05] MEDS: ASPIRIN 81 MG PEG/G-TUBE SCH (12:39)
[2020-08-05] MEDS: MAGNESIUM OXIDE 400 MG TAB PEG/G-TUBE SCH ×2 (12:39→22:29)
--- NOTE | 2020-08-05 13:22 | CONS ---
CONSULTATION REASON FOR CONSULT: Hyponatremia. HISTORY OF PRESENT ILLNESS: Patient is a 70-year-old female with cerebral palsy who resides at [facility]. The patient was admitted to the hospital with complaints of shortness of breath. The patient normally does not communicate much and is not able to comprehend. There was no significant hypotension. Apparently, there is a previous history of hyponatremia. The patient was found to have a serum sodium of 115 on admission. She received normal saline bolus and was on saline at about 200 mL an hour. Her repeat sodium was 117 about 6 hours later. Blood pressure when she first came in has been around 132 to 115 mmHg systolic. Currently patient is maintained on a BiPAP. Her chest x-ray shows possible left lobe pneumonia and atelectasis bilaterally was noted. The patient also has a PEG tube, however, it seems to have been pulled out and it is almost out. General surgery has been consulted and it is not clear how much patient was taking by mouth and through the tube feedings. Review of previous labs shows sodium of 140 around 09/12/2016. Reviewing med list, it appears that the patient is maintained on Florinef. I do not see any thiazide diuretics. She is on Lasix 20 mg twice a day via PEG tube. PAST MEDICAL HISTORY: Significant for CHF, gastroesophageal reflux disease, seizure disorder, hypothyroidism, history of sacral wound mentally challenged with CP, wheelchair bound, able to talk some but not sure how much and whether she comprehends. PAST SURGICAL HISTORY: Hysterectomy, tonsillectomy, history of colostomy for healing of a sacral wound and status post PEG tube recently. SOCIAL HISTORY: Negative for smoking, drug abuse or alcohol abuse. MEDICATIONS: Medications prior to admission included Florinef, Ativan, Synthroid, Tylenol, Cordarone, Eliquis, aspirin, Lipitor, Zithromax, Pepcid, Lasix, Motrin, losartan, magnesium, Lopressor, potassium, senna, MiraLAX. ALLERGIES: Are multiple including CIPRO, DOXYCYCLINE, LEVAQUIN, PENICILLIN, B, DILANTIN, QUINOLONES, SULFA, TETRACYCLINE, YELLOW DYE, BACTRIM. EXAMINATION: Patient is currently comfortable. She is maintained on BiPAP. She is awake. She does not understand or comprehend what I am talking to her. Blood pressure was 118/69, heart rate of 66 per minute, she is afebrile. Examination of the heart S1, S2. Examination of the lungs, bilateral breath sounds are heard. Abdomen is soft, nontender. Exam of lower extremities shows no significant edema. The patient is moving all four extremities. LAB: Show sodium 117, potassium 4.9, chloride 83. CO2 is 32, BUN 17, serum creatinine 0.32. Random urine sodium 10 and urine osmolality was 507. Coronavirus was not detected. Hemoglobin 9.4 g/dL. Serum potassium was 5.9 early this morning at 2:00 am. ASSESSMENT: 1. Hyponatremia, mostly euvolemic with mild component of hypovolemia, status post normal saline. The serum sodium did improve with normal saline. I will continue with 60 mL an hour of saline and repeat sodium in another 3-4 hours. Hold off on the Florinef for now. The patient's TSH was elevated and Synthroid has been increased. Cortisol level was not low. 2. Hyperkalemia in a patient maintained on Florinef, angiotensin receptor blockers. I am not sure if she had urine retention. Currently she has a Pelletier catheter. No evidence of adrenal insufficiency. Serum cortisol was not low. Patient was on nonsteroidal anti-inflammatory agents along with angiotensin receptor blockers prior to admission. Her serum creatinine has been 0.37-0.39 mg/dL. Serum potassium is down to 4.9 now. We will continue to monitor for now. Continue off NSAIDs and maintain Pelletier catheter if the patient had urine retention. 3. Possible pneumonia, maintained on antibiotics. 4. Malpositioned PEG tube, surgery has been consulted. Patient is n.p.o. for now. 5. Hypomagnesemia, status post replacement. 6. Cerebral palsy and patient is mentally challenged. PLAN: Continue with saline at 60 mL an hour. Repeat sodium in about 4 hours. Maintain patient n.p.o. Hold off on the nonsteroidal anti-inflammatory agents for now. Thank you for this consultation. We will continue to follow the patient with you during her hospitalization. MMODL / IJN: [id number] /
[2020-08-05] MEDS: CEFEPIME 1 GM in SODIUM CHLORIDE 0.9% 50 ML IVPB SCH ×2 (13:37→22:34)
[2020-08-05] MEDS: CLINDAMYCIN 300 MG in DEXTROSE 5% IN WATER 50 ML IVPB SCH ×4 (13:37→16:09)
[2020-08-05] MEDS: MAGNESIUM SULFATE-D5W PMX 1 GM in DEXTROSE/WATER 1 100ML.BAG IVPB SCH ×2 (13:40→16:09)
[2020-08-05 16:58] LABS: African American GFR (CKD) >90 (>60 ml/min/1.73 sqM); Anion Gap 4 mmol/L; Blood Urea Nitrogen 15 mg/dL (7-17); Calcium 7.9 mg/dL (8.4-10.2); Carbon Dioxide 28 mmol/L (22-30); Chloride 85 mmol/L (98-107); Glucose 115 mg/dL (74-99); Non-African American GFR(CKD) >90 (>60 ml/min/1.73 sqM); Potassium 5.4 mmol/L (3.5-5.1)
[2020-08-05 17:02] LABS: Sodium 117 mmol/L (137-145)
[2020-08-05] MEDS ORDERED: SODIUM CHLORIDE 3%(HYPERTONIC) 500 ML IV SCH (21:45)
[2020-08-05] MEDS: ATORVASTATIN 40 MG TAB PEG/G-TUBE SCH (22:28)
[2020-08-06 01:10] LABS: African American GFR (CKD) >90 (>60 ml/min/1.73 sqM); Anion Gap 5 mmol/L; Blood Urea Nitrogen 12 mg/dL (7-17); Calcium 7.5 mg/dL (8.4-10.2); Carbon Dioxide 29 mmol/L (22-30); Chloride 83 mmol/L (98-107); Glucose 106 mg/dL (74-99); Non-African American GFR(CKD) >90 (>60 ml/min/1.73 sqM); Potassium 4.5 mmol/L (3.5-5.1)
[2020-08-06 01:12] LABS: Sodium 117 mmol/L (137-145)
[2020-08-06] MEDS: CLINDAMYCIN 300 MG in DEXTROSE 5% IN WATER 50 ML IVPB SCH ×6 (03:00→15:58)
[2020-08-06] MEDS ORDERED: DILTIAZEM DRIP BOLUS FROM BAG 1 MG SOLN IV ONE (04:41)
[2020-08-06] MEDS: DILTIAZEM 125 MG in SODIUM CHLORIDE 0.9% 100 ML IV SCH ×2 (05:19→16:28)
[2020-08-06 05:24] LABS: Basophils # (A) 0.1 k/uL (0-0.2); Basophils % (A) 2 %; Eosinophils # (A) 0.1 k/uL (0-0.7); Eosinophils % (A) 1 %; HCT 28.3 % (34.0-46.0); HGB 9.1 gm/dL (11.4-16.0); Lymphocytes # (A) 0.5 k/uL (1.0-4.8); Lymphocytes % (A) 11 %; MCH 29.2 pg (25.0-35.0); MCHC 32.3 g/dL (31.0-37.0); MCV 90.3 fL (80.0-100.0); Mean Platelet Volume 7.7; Monocytes # (A) 0.3 k/uL (0-1.0); Monocytes % (A) 7 %; Neutrophils # (A) 3.6 k/uL (1.3-7.7); Neutrophils % (A) 77 %; Platelet Count 172 k/uL (150-450); RBC 3.13 m/uL (3.80-5.40); RDW 15.9 % (11.5-15.5); WBC 4.7 k/uL (3.8-10.6)
[2020-08-06 05:34] LABS: African American GFR (CKD) >90 (>60 ml/min/1.73 sqM); Anion Gap 4 mmol/L; Blood Urea Nitrogen 12 mg/dL (7-17); Calcium 7.7 mg/dL (8.4-10.2); Carbon Dioxide 28 mmol/L (22-30); Chloride 86 mmol/L (98-107); Glucose 103 mg/dL (74-99); Magnesium 1.9 mg/dL (1.6-2.3); Non-African American GFR(CKD) >90 (>60 ml/min/1.73 sqM); Potassium 4.7 mmol/L (3.5-5.1)
[2020-08-06 05:53] LABS: Sodium 118 mmol/L (137-145)
[2020-08-06] MEDS: LEVOTHYROXINE 50 MCG TAB PEG/G-TUBE SCH (06:31)
[2020-08-06] MEDS: IPRATROPIUM-ALBUTEROL 3 ML NEB INHALATION SCH ×4 (07:23→20:26)
--- NOTE | 2020-08-06 09:24 | XR ---
EXAMINATION TYPE: XR chest 1V portable DATE OF EXAM: 08/06/2020 HISTORY: Shortness of breath. COMPARISON: 08/04/2020 TECHNIQUE: Single view of the chest is submitted. FINDINGS: Demonstrated are scattered senescent parenchymal change. The lung volumes are diminished. Perihilar and basilar infiltrates persist although there may be inte rval improvement noted. The heart is stable. Hilar and mediastinal structures are within normal limits. Degenerative changes are seen of the dorsal spine. IMPRESSION: 1. The lung volumes are diminished. Perihilar and basilar infiltrates persist although there may be interval improvement noted.
--- NOTE | 2020-08-06 09:56 | P.GSCN ---
History of Present Illness Consult date: 08/06/20 Reason for Consult: PEG tube malposition History of present illness: Is a 62-year-old female who's I am able to give any significant medical history. Patient has a PEG tube the CAT scan shows a PEG tip eroded into the anterior abdominal wall. There is no evidence of any free air the stomach appears to be adherent to the abdominal wall. Past Medical History Past Medical History: Heart Failure, GERD/Reflux, Seizure Disorder, Thyroid Disorder Additional Past Medical History / Comment(s): past constipation and afc home stated past bowel obstruction,incont of urine,SACRAL WOUND, epilepsy no seizure in at least 2 years since shes been at [facility] severe mentally handic apped,cerebral palsy, w/c bound, ABLE TO TALK SOME AND STAFF STATED SHE IS REPETITVE WITH WORDS AT TIMES. ON A SOFT CHOPPED FOOD DIET, NEEDS TO BE WATCHED WHEN EATS BECAUSE SHE WILL SHOVE A LOT OF FOOD IN HER MOUTH AT ONE TIME AND NEED TO OFFER FLUIDS. History of Any Multi-Drug Resistant Organisms: MRSA Year Discovered:: 07/05/2015 MDRO Source:: buttock Past Surgical History: Hysterectomy, Tonsillectomy Additional Past Surgical History / Comment(s): COLOSTOMY, i&d/closure of sacral wound, PEG tube recently Past Anesthesia/Blood Transfusion Reactions: No Reported Reaction Past Psychological History: No Psychological Hx Reported Smoking Status: Never smoker Past Alcohol Use History: None Reported Past Drug Use History: None Reported - Past Family History Father Family Medical History: Unable to Obtain Mother Family Medical History: Unable to Obtain Medications and Allergies Home Medications Medication Instructions Recorded Confirmed Type Fludrocortisone [Florinef] 0.1 mg PEG/G-TUBE DAILY 03/05/16 08/04/20 History LORazepam [Ativan] 1 mg PEG/G-TUBE DAILY PRN 03/05/16 08/04/20 History Levothyroxine Sodium 112 mcg PEG/G-TUBE DAILY 03/05/16 08/04/20 History Acetaminophen Tab [Tylenol] 650 mg PEG/G-TUBE Q4H PRN 08/04/20 08/04/20 History Amiodarone [Cordarone] 200 mg PEG/G-TUBE DAILY 08/04/20 08/04/20 History Apixaban [Eliquis] 5 mg PEG/G-TUBE BID 08/04/20 08/04/20 History Aspirin EC [Ecotrin Low Dose] 81 mg PEG/G-TUBE DAILY 08/04/20 08/04/20 History Atorvastatin Calcium [Lipitor] 40 mg PEG/G-TUBE HS 08/04/20 08/04/20 History Azithromycin [Zithromax] See Taper PEG/G-TUBE HS 08/04/20 08/04/20 History Baclofen [Lioresal] 20 mg PEG/G-TUBE BID 08/04/20 08/04/20 History Eslicarbazepine Acetate [Aptiom] 600 mg PEG/G-TUBE DAILY 08/04/20 08/04/20 History Famotidine [Pepcid] 20 mg PEG/G-TUBE BID 08/04/20 08/04/20 History Furosemide [Lasix] 20 mg PEG/G-TUBE BID 08/04/20 08/04/20 History Ibuprofen [Motrin Ib] 200 mg PEG/G-TUBE Q6H PRN 08/04/20 08/04/20 History Ketoconazole 2% Cream [Nizoral 2%] 1 applic TOPICAL BID PRN 08/04/20 08/04/20 History Losartan Potassium 50 mg PEG/G-TUBE Q12H 08/04/20 08/04/20 History Magnesium Hydroxide [Milk of 2,400 mg PEG/G-TUBE Q72H 08/04/20 08/04/20 History Magnesia] Magnesium Oxide 400 mg PEG/G-TUBE Q12H 08/04/20 08/04/20 History Metoprolol Tartrate [Lopressor] 75 mg PEG/G-TUBE Q12H 08/04/20 08/04/20 History Potassium Chloride See Taper PEG/G-TUBE DIRECTED 08/04/20 08/04/20 History Sennosides [Senna] 17.2 mg PEG/G-TUBE HS 08/04/20 08/04/20 History guaiFENesin [guaiFENesin Oral 200 mg PEG/G-TUBE Q4H PRN 08/04/20 08/04/20 History Solution] polyethylene glycoL 3350 [Miralax] 17 gm PEG/G-TUBE DAILY 08/04/20 08/04/20 History Allergies Allergy/AdvReac Type Severity Reaction Status Date / Time ciprofloxacin [From Cipro] Allergy Unknown Verified 08/04/20 21:15 ciprofloxacin HCl Allergy Unknown Verified 08/04/20 21:15 [From Cipro] doxycycline Allergy Unknown Verified 08/04/20 21:15 Hydantoins Allergy Unknown Verified 08/04/20 21:15 levofloxacin [From Levaquin] Allergy Unknown Verified 08/04/20 21:15 penicillin V Allergy Unknown Verified 08/04/20 21:15 phenytoin sodium Allergy Unknown Verified 08/04/20 21:15 [From Dilantin] phenytoin sodium extended Allergy Unknown Verified 08/04/20 21:15 [From Dilantin] Quinolones Allergy Unknown Verified 08/04/20 21:15 Sulfa (Sulfonamide Allergy Unknown Verified 08/04/20 21:15 Antibiotics) sulfamethoxazole Allergy Unknown Verified 08/04/20 21:15 [From Bactrim] Tetracyclines Allergy Unknown Verified 08/04/20 21:15 trimethoprim [From Bactrim] Allergy Unknown Verified 08/04/20 21:15 yellow dye Allergy Unknown Verified 08/04/20 21:15 Surgical - Exam Vital Signs Temp Pulse Resp BP Pulse Ox 98.7 F 67 26 H 132/68 100 08/04/20 18:11 08/04/20 18:11 08/04/20 18:11 08/04/20 18:11 08/04/20 18:11 - General well developed, well nourished, no distress - Eyes PERRL - Abdomen Abdomen soft. There is a colostomy in left upper quadrant. There is a well- healed midline scar. PEG tube in the epigastric area Results - Labs 08/06/20 05:09 08/06/20 05:09 Abnormal Lab Results - Last 24 Hours (Table) 08/05/20 08/05/20 08/05/20 Range/Units : 08: 16:29 RBC (3.80-5.40) m/uL Hgb (11.4-16.0) gm/dL Hct (34.0-46.0) % RDW (11.5-15.5) % Lymphocytes # (1.0-4.8) k/uL Sodium 117 L* 117 L* (137-145) mmol/L Potassium 5.4 H (3.5-5.1) mmol/L Chloride 83 L 85 L (98-107) mmol/L Carbon Dioxide 32 H (22-30) mmol/L Creatinine 0.32 L 0.27 L (0.52-1.04) mg/dL Glucose 115 H (74-99) mg/dL Calcium 7.9 L 7.9 L (8.4-10.2) mg/dL Procalcitonin 0.10 H (0.02-0.09) ng/mL 08/06/20 08/06/20 08/06/20 Range/Units 00:16 05:09 05:09 RBC 3.13 L (3.80-5.40) m/uL Hgb 9.1 L (11.4-16.0) gm/dL Hct 28.3 L (34.0-46.0) % RDW 15.9 H (11.5-15.5) % Lymphocytes # 0.5 L (1.0-4.8) k/uL Sodium 117 L* 118 L* (137-145) mmol/L Potassium (3.5-5.1) mmol/L Chloride 83 L 86 L (98-107) mmol/L Carbon Dioxide (22-30) mmol/L Creatinine 0.27 L 0.27 L (0.52-1.04) mg/dL Glucose 106 H 103 H (74-99) mg/dL Calcium 7.5 L 7.7 L (8.4-10.2) mg/dL Procalcitonin (0.02-0.09) ng/mL Microbiology - Last 24 Hours (Table) 08/04/20 18:15 Blood Culture - Preliminary Blood No Growth after 24 hours Diabetes panel 08/05/20 08/05/20 08/06/20 Range/Units 08:20 16:29 00:16 Sodium 117 L* 117 L* 117 L* (137-145) mmol/L Potassium 4.9 5.4 H 4.5 (3.5-5.1) mmol/L Chloride 83 L 85 L 83 L (98-107) mmol/L Carbon Dioxide 32 H 28 29 (22-30) mmol/L BUN 17 15 12 (7-17) mg/dL Creatinine 0.32 L 0.27 L 0.27 L (0.52-1.04) mg/dL Glucose 94 115 H 106 H (74-99) mg/dL Calcium 7.9 L 7.9 L 7.5 L (8.4-10.2) mg/dL 08/06/20 Range/Units 05:09 Sodium 118 L* (137-145) mmol/L Potassium 4.7 (3.5-5.1) mmol/L Chloride 86 L (98-107) mmol/L Carbon Dioxide 28 (22-30) mmol/L BUN 12 (7-17) mg/dL Creatinine 0.27 L (0.52-1.04) mg/dL Glucose 103 H (74-99) mg/dL Calcium 7.7 L (8.4-10.2) mg/dL Calcium panel 08/05/20 08/05/20 08/06/20 Range/Units 08:20 16:29 00:16 Calcium 7.9 L 7.9 L 7.5 L (8.4-10.2) mg/dL 08/06/20 Range/Units 05:09 Calcium 7.7 L (8.4-10.2) mg/dL Pituitary panel 08/05/20 08/05/20 08/06/20 Range/Units 08:20 16:29 00:16 Sodium 117 L* 117 L* 117 L* (137-145) mmol/L Potassium 4.9 5.4 H 4.5 (3.5-5.1) mmol/L Chloride 83 L 85 L 83 L (98-107) mmol/L Carbon Dioxide 32 H 28 29 (22-30) mmol/L BUN 17 15 12 (7-17) mg/dL Creatinine 0.32 L 0.27 L 0.27 L (0.52-1.04) mg/dL Glucose 94 115 H 106 H (74-99) mg/dL Calcium 7.9 L 7.9 L 7.5 L (8.4-10.2) mg/dL 08/06/20 Range/Units 05:09 Sodium 118 L* (137-145) mmol/L Potassium 4.7 (3.5-5.1) mmol/L Chloride 86 L (98-107) mmol/L Carbon Dioxide 28 (22-30) mmol/L BUN 12 (7-17) mg/dL Creatinine 0.27 L (0.52-1.04) mg/dL Glucose 103 H (74-99) mg/dL Calcium 7.7 L (8.4-10.2) mg/dL Adrenal panel 08/05/20 08/05/20 08/06/20 Range/Units 08:20 16:29 00:16 Sodium 117 L* 117 L* 117 L* (137-145) mmol/L Potassium 4.9 5.4 H 4.5 (3.5-5.1) mmol/L Chloride 83 L 85 L 83 L (98-107) mmol/L Carbon Dioxide 32 H 28 29 (22-30) mmol/L BUN 17 15 12 (7-17) mg/dL Creatinine 0.32 L 0.27 L 0.27 L (0.52-1.04) mg/dL Glucose 94 115 H 106 H (74-99) mg/dL Calcium 7.9 L 7.9 L 7.5 L (8.4-10.2) mg/dL 08/06/20 Range/Units 05:09 Sodium 118 L* (137-145) mmol/L Potassium 4.7 (3.5-5.1) mmol/L Chloride 86 L (98-107) mmol/L Carbon Dioxide 28 (22-30) mmol/L BUN 12 (7-17) mg/dL Creatinine 0.27 L (0.52-1.04) mg/dL Glucose 103 H (74-99) mg/dL Calcium 7.7 L (8.4-10.2) mg/dL Assessment and Plan Assessment: Patient's PEG tube will be removed and replaced with a Pelletier catheter. We'll obtain x-ray confirmed position of the feeding tube
--- NOTE | 2020-08-06 09:59 | P.OP ---
Date of Procedure: 08/06/20 Preoperative Diagnosis: Malnutrition Postoperative Diagnosis: Malnutrition Procedure(s) Performed: Removal of PEG tube and replacement with 16-Urdu Pelletier catheter Condition: stable Disposition: PACU Description of Procedure: The patient's PEG tube was removed at the bedside with gentle traction. A 16- Urdu Pelletier catheter was placed in the tract and position of the stomach. The balloon was inflated with 10 mL of saline. Patient was scheduled to have x-ray performed to confirm position of the feeding tube
--- NOTE | 2020-08-06 10:35 | XR ---
EXAMINATION TYPE: XR abdomen 1V DATE OF EXAM: 08/06/2020 COMPARISON: NONE HISTORY: Pain TECHNIQUE: Single supine KUB image of the abdomen is obtained FINDINGS: Peg tube placement . 20ml of ISO 300 via catheter tip syringe. Contrast is noted within the stomach w ithout evidence for leak. IMPRESSION: 1. PEG tube appears to be appropriately placed.
[2020-08-06] MEDS: polyethylene glycoL 3350 17 GM POWD.PACK PEG/G-TUBE SCH (10:44)
[2020-08-06] MEDS: APIXABAN 5 MG TAB PEG/G-TUBE SCH ×2 (10:47→22:29)
[2020-08-06] MEDS: MAGNESIUM OXIDE 400 MG TAB PEG/G-TUBE SCH ×2 (10:47→22:29)
[2020-08-06] MEDS: AMIODARONE 200 MG TAB PEG/G-TUBE SCH (10:47)
[2020-08-06] MEDS: FAMOTIDINE 20 MG TAB PEG/G-TUBE SCH ×2 (10:48→22:29)
[2020-08-06] MEDS: ASPIRIN 81 MG PEG/G-TUBE SCH (10:48)
[2020-08-06] MEDS: FLUDROCORTISONE 0.1 MG TAB PEG/G-TUBE SCH (10:50)
--- NOTE | 2020-08-06 11:12 | P.PN ---
Subjective Patient is awake and alert this morning. She appears comfortable and in no acute distress. She is currently on 2 L of oxygen via nasal cannula. PEG tube position was adjusted by general surgery awaiting repeat x-ray. Objective - Vital Signs Vital signs: Vital Signs Temp 97.7 F 08/06/20 08:00 Pulse 108 H 08/06/20 10:00 Resp 22 08/06/20 10:00 BP 107/59 08/06/20 10:00 Pulse Ox 100 08/06/20 10:00 Intake & Output 08/05/20 08/06/20 08/06/20 18:59 06:59 18:59 Intake Total 610 340 80 Output Total 2150 395 140 Balance -1540 -55 -60 Weight 82.8 kg 82.8 kg Intake: IV 610 340 80 0.9 610 60 Cefepime 1 gm In Sodium 50 Chloride 0.9% 50 ml @ 12. 5 mls/hr IVPB Q12H DARYL Rx #:[id number] Clindamycin 300 mg In 50 Dextrose 5% in Water 50 ml @ 50 mls/hr IVPB Q8HR DARYL Rx#:[id number] Sodium Chloride 3%( 180 80 Hypertonic) 500 ml @ 20 mls/hr IV .Q24H DARYL Rx#: [id number] Output: Urine 2150 395 140 Other: Voiding Method Indwelling Catheter Indwelling Catheter - Exam General: The patient is awake and alert, she is in no acute distress Eye: there is normal conjunctiva bilaterally. Neck: The neck is supple, there is no JVD. Cardiovascular: Normal S1-S2, no S3-S4, no murmurs. Respiratory: Lungs clear to anterior chest auscultation Gastrointestinal: Abdomen is soft, nontender Musculoskeletal: There is +1 pedal edema. Skin: Skin is warm and dry - Labs CBC & Chem 7: 08/06/20 05:09 08/06/20 05:09 Labs: Abnormal Lab Results - Last 24 Hours (Table) 08/05/20 08/05/20 08/06/20 Range/Units :20 16:29 00:16 RBC (3.80-5.40) m/uL Hgb (11.4-16.0) gm/dL Hct (34.0-46.0) % RDW (11.5-15.5) % Lymphocytes # (1.0-4.8) k/uL Sodium 117 L* 117 L* (137-145) mmol/L Potassium 5.4 H (3.5-5.1) mmol/L Chloride 85 L 83 L (98-107) mmol/L Creatinine 0.27 L 0.27 L (0.52-1.04) mg/dL Glucose 115 H 106 H (74-99) mg/dL Calcium 7.9 L 7.5 L (8.4-10.2) mg/dL Procalcitonin 0.10 H (0.02-0.09) ng/mL 08/06/20 08/06/20 Range/Units 05:09 05:09 RBC 3.13 L (3.80-5.40) m/uL Hgb 9.1 L (11.4-16.0) gm/dL Hct 28.3 L (34.0-46.0) % RDW 15.9 H (11.5-15.5) % Lymphocytes # 0.5 L (1.0-4.8) k/uL Sodium 118 L* (137-145) mmol/L Potassium (3.5-5.1) mmol/L Chloride 86 L (98-107) mmol/L Creatinine 0.27 L (0.52-1.04) mg/dL Glucose 103 H (74-99) mg/dL Calcium 7.7 L (8.4-10.2) mg/dL Procalcitonin (0.02-0.09) ng/mL Microbiology - Last 24 Hours (Table) 08/04/20 18:15 Blood Culture - Preliminary Blood No Growth after 24 hours Assessment and Plan Assessment: Patient is a 70-year-old female with a PMH of cerebral palsy, paraplegic, minimally verbal, with a gastrostomy tube resident of [facility] in [place] who was sent to the emergency room due to shortness of breath. Patient has a public guardian (Melva at [phone]). Patient was evaluated in the ER and admitted to the hospital for further management of her medical problems noted below 1. Acute hypoxic respiratory failure, required BiPAP on presentation currently on 2 L of oxygen via nasal cannula. Continue to monitor in the ICU. Managed by pulmonology. 2. Left lower lobe pneumonia, with concerns about aspiration. Started on broad-spectrum antibiotic with cefepime and clindamycin. Pro-calcitonin slightly elevated and blood culture negative to date. Coronavirus PCR negative 3. Severe hyponatremia with sodium level of 115 on presentation. Hypovolemic hyponatremia. Nephrology consulted. Avoid overcorrection. IV fluid switched to hypertonic saline managed by nephrology 4. Hypomagnesemia, replacemed 5. PEG tube malpositioned, general surgery following and adjust the position. Plan to insert a new PEG tube tomorrow 6. History of cerebral palsy with severe intellectual disability chronically nonverbal Chronic medical problems: Hypothyroidism, hyperlipidemia, chronic anticoagulation with Eliquis. Continue home medication Today, I reviewed her medication list and lab work results. Continue current regimen. Continue ICU care while on hypertonic saline. Managed by nephrology. Repeat lab work as ordered.
[2020-08-06] MEDS: METOPROLOL TARTRATE 50 MG TAB PEG/G-TUBE SCH ×2 (11:43→22:29)
[2020-08-06] MEDS: CEFEPIME 1 GM in SODIUM CHLORIDE 0.9% 50 ML IVPB SCH ×2 (12:11→22:28)
--- NOTE | 2020-08-06 13:08 | PN ---
PROGRESS NOTE Patient is seen for followup for hyponatremia. The patient has been maintained on 3% saline as she was not able to take anything p.o. She was maintained initially on normal saline. Her serum sodium did not improve significantly and 3% saline was started last night. This morning sodium is up to 118. There are plans for possible NG tube insertion versus repositioning of the PEG tube. PHYSICAL EXAMINATION: On examination today, blood pressure was 115/53, heart rate 96 per minute, she is afebrile. Examination of the heart S1, S2. Examination of the lungs, bilateral breath sounds are heard. Abdomen is soft, nontender. Examination of lower extremities shows contractures bilaterally upper and lower extremities. Patient prefers to keep her legs flexed as well. RRT exam shows patient did answer to simple questions. She is not able to move her upper extremities much. She does have contractures in the upper extremities. LABS: Sodium 118, potassium 4.7, chloride 86, BUN 12, serum creatinine 0.27. ASSESSMENT: 1. Hyponatremia which appeared to be hypovolemic status post a normal saline initially. However, since the sodium did not improve much the patient was started on 3% saline and the labs are pending from today. It is up to 118 from 117. Urine osmolality was 547 on admission. However, serum sodium did not worsen with saline. Therefore, it is not typical of SIADH. Given the low blood pressure, the patient will benefit from sodium chloride tabs which will be started once she is able to take p.o. In the meantime, I will continue with the 3% saline. 2. Hyperkalemia, currently improved. The patient was on NSAIDs at the time of admission. She also has history of adrenal insufficiency and is maintained on Florinef. 3. Cerebral palsy with the patient being mentally challenged. 4. Hypothyroidism. TSH was high and the dose of Synthroid has been adjusted. 5. Pneumonia, maintained on IV antibiotics. 6. Malfunctioning PEG tube. The patient is being followed by Surgery and her PEG tube would likely come out and a new one will be placed. PLAN: Repeat labs. Continue with 3% saline for now. If the patient is able to take p.o., I will add sodium chloride tabs versus tolvaptan. MMODL / IJN: [id number] /
--- NOTE | 2020-08-06 13:26 | P.PN ---
Subjective Progress Note Date: 08/06/20 Principal diagnosis: Acute bibasilar pneumonia possible aspiration pneumonia This is a 70-year-old female with history of multiple medical problems, patient is paraplegic, known history of cerebral palsy, resides at [facility] in [place]. Patient was sent to the ER mostly because she was noted to have shortness of breath, and noted to have in respiratory distress at the [place] [facility]. Patient was sent to the ER, and she had multiple abnormal findings including abnormal chest x-ray showing bibasilar atelectasis/infiltrates. Abnormal CT of the abdomen and pelvis confirming the same, abnormal electrolytes with low sodium of 1:15 and elevated potassium of 5 .5. Abnormal TSH. Patient had a chronic indwelling PEG tube, and she had a colostomy in place. The patient is nonverbal, considering the multiple abnormalities noted patient was admitted to the ICU, and I was asked to see her on consultation. Upon my initial evaluation, the patient was noted to be in respiratory distress, seems to be working hard to take a deep breath. She was on a Ventimask, and I recommended switching the Ventimask to a BiPAP with IPAP of 12 and EPAP of 6, and FiO2 of 40%. As soon as the patient was placed on BiPAP, there was clearly evidence of improvement in her respiratory status and was not working as hard to breathe. Hence kept on BiPAP. Reviewed her chest x-ray patient may have paralyzed diaphragms since they seem to be extremely elevated on both sides. Patient may also have aspiration pneumonia although the patient is nothing by mouth, and she has a PEG tube in place used for nutritional support. Hence I recommended broadening the spectrum of coverage with antibiotics, added clindamycin to her cefepime. Patient has multiple ALLERGIES including ALLERGY to penicillin. In the ER, patient was given IV fluids in the form of 0.9 normal saline, she was noted to be clinically dehydrated, repeat sodium in the ICU came up to 117 from 115 on admission. And her potassium came down to 4.9 from 5.9. PCR for covid 19 came back negative. Patient was reevaluated today on 08/06/20, remains in the ICU, sitting in bed, seems to be fairly comfortable. However the patient is in atrial fibrillation, poorly controlled, rate is 114 this morning, and considering the patient had all her medications on hold orally, she is now on Cardizem drip for atrial fibri llation. She is hemodynamically stable, blood pressure is 115/53, and her O2 saturation is 100%, on 4 L nasal cannula. Sodium remains low at 118 and she is now on 3% saline at 20 mL per hour ordered by nephrology on the case. Patient was seen by general surgery, her PEG tube was removed at the bedside, and a 16- [place] Pelletier catheter was placed in the tract and position of the stomach the balloon was inflated with 10 mL of saline and the patient is to have x-rays to confirm position of the feeding tube. Follow-up x-ray showed adequate placement of the PEG tube and seems to be appropriately placed. Hence we will likely start feeding tomorrow. In the meantime the patient could be given her oral medications via PEG tube, and no need for a nasogastric tube. WBC count today is 4.7 hemoglobin is 9.1. Sodium went up today from 118-122. And her renal functioning seems to be normal. Bicarb is 28. Pro-calcitonin is 0.10, seems to be negligible. Follow-up chest x-ray showed again low lung volumes and elevated diaphragms, patient continues to have perihilar and basilar infiltrate/atel ectasis. Objective - Vital Signs Vital signs: Vital Signs Temp 97.7 F 08/06/20 08:00 Pulse 112 H 08/06/20 11:25 Resp 23 08/06/20 11:00 BP 115/53 08/06/20 11:00 Pulse Ox 100 08/06/20 11:00 Intake & Output 08/05/20 08/06/20 08/06/20 18:59 06:59 18:59 Intake Total 610 340 100 Output Total 2150 395 170 Balance -1540 -55 -70 Weight 82.8 kg 82.8 kg Intake: IV 610 340 100 0.9 610 60 Cefepime 1 gm In Sodium 50 Chloride 0.9% 50 ml @ 12. 5 mls/hr IVPB Q12H [facility]L Rx #:[id number] Clindamycin 300 mg In 50 Dextrose 5% in Water 50 ml @ 50 mls/hr IVPB Q8HR DARYL Rx#:[id number] Sodium Chloride 3%( 180 100 Hypertonic) 500 ml @ 20 mls/hr IV .Q24H DARYL Rx#: [id number] Output: Urine 2150 395 170 Other: Voiding Method Indwelling Catheter Indwelling Catheter Indwelling Catheter - Exam General: Revealed a 70-year-old female with flexion contractures, nonverbal, in mild to moderate respiratory distress on 4 L nasal cannula Head: atraumatic, normocephalic, Eyes: PERRLA, EOMI, no icterus. ENT: Dry mucous membranes, no neck masses, no JVD, no stridor. Throat is clear. Neck: Supple, no neck masses. No lymphadenopathy.. Cardiovascular: Normal S1 and S2, no S3 gallop. Lungs: Diminished breath sounds bilaterally crackles at the bases. Abdominal: Soft, gastrostomy , colostomy noted. Surgical scars and abdomen noted. Ext: Lower extremities and upper extremities contractures noted. Neuro: Awake, nonverbal, does not follow any instructions. Skin: No rashes. - Labs CBC & Chem 7: 08/06/20 05:09 08/06/20 11:01 Labs: Abnormal Lab Results - Last 24 Hours (Table) 08/05/20 08/05/20 08/06/20 Range/Units 08: 16:29 00:16 RBC (3.80-5.40) m/uL Hgb (11.4-16.0) gm/dL Hct (34.0-46.0) % RDW (11.5-15.5) % Lymphocytes # (1.0-4.8) k/uL Sodium 117 L* 117 L* (137-145) mmol/L Potassium 5.4 H (3.5-5.1) mmol/L Chloride 85 L 83 L (98-107) mmol/L Creatinine 0.27 L 0.27 L (0.52-1.04) mg/dL Glucose 115 H 106 H (74-99) mg/dL Calcium 7.9 L 7.5 L (8.4-10.2) mg/dL Procalcitonin 0.10 H (0.02-0.09) ng/mL 08/06/20 08/06/20 08/06/20 Range/Units 05:09 05:09 11:01 RBC 3.13 L (3.80-5.40) m/uL Hgb 9.1 L (11.4-16.0) gm/dL Hct 28.3 L (34.0-46.0) % RDW 15.9 H (11.5-15.5) % Lymphocytes # 0.5 L (1.0-4.8) k/uL Sodium 118 L* 122 L (137-145) mmol/L Potassium (3.5-5.1) mmol/L Chloride 86 L (98-107) mmol/L Creatinine 0.27 L (0.52-1.04) mg/dL Glucose 103 H (74-99) mg/dL Calcium 7.7 L (8.4-10.2) mg/dL Procalcitonin (0.02-0.09) ng/mL Microbiology - Last 24 Hours (Table) 08/04/20 18:15 Blood Culture - Preliminary Blood No Growth after 24 hours Assessment and Plan Assessment: Impression: Bibasilar pneumonia, strongly suspect aspiration pneumonia. 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 Severe hypovolemic hyponatremia and hyperkalemia, patient is hypovolemic on presentation, improving with hydration, and improving with 3% saline, sodium this morning is 122. Malpositioning of the PEG tube , hence the old PEG tube was removed, and a new PEG tube was placed by Dr. Cao. Hypothyroidism, patient will be placed on a higher dose of levothyroxine, dose was increased from 112 g to 125. Medical debility secondary to cerebral palsy and paraplegia. Chronic atrial fibrillation. Recommendation: Continue oxygen at 4 L/m, use BiPAP as needed. Continue cefepime and clindamycin. initiate enteral feeding tomorrow since the tube was placed today. Close monitoring of sodium, today is 122. Continue slow hydration with 0.9 normal saline once the 3% is discontinued Continue to monitor daily x-rays of the chest. Continue Cardizem, switched to oral medications for atrial fibrillation tomorrow. Via PEG tube. Continue to monitor in the ICU. GI and DVT prophylaxis.. We will continue to follow Time with Patient: Less than 30
[2020-08-06 18:28] LABS: Glucose,Whole Blood 120 mg/dL (75-99)
[2020-08-06] MEDS: ATORVASTATIN 40 MG TAB PEG/G-TUBE SCH (22:29)
[2020-08-07 00:08] LABS: Glucose,Whole Blood 103 mg/dL (75-99)
[2020-08-07] MEDS: CLINDAMYCIN 300 MG in DEXTROSE 5% IN WATER 50 ML IVPB SCH ×8 (01:08→23:55)
[2020-08-07 04:45] LABS: Basophils # (A) 0.1 k/uL (0-0.2); Basophils % (A) 1 %; Eosinophils # (A) 0.1 k/uL (0-0.7); Eosinophils % (A) 1 %; HCT 26.7 % (34.0-46.0); HGB 8.3 gm/dL (11.4-16.0); Lymphocytes # (A) 0.6 k/uL (1.0-4.8); Lymphocytes % (A) 13 %; MCH 27.8 pg (25.0-35.0); MCHC 31.1 g/dL (31.0-37.0); MCV 89.5 fL (80.0-100.0); Mean Platelet Volume 7.5; Monocytes # (A) 0.3 k/uL (0-1.0); Monocytes % (A) 8 %; Neutrophils # (A) 3.4 k/uL (1.3-7.7); Neutrophils % (A) 75 %; Platelet Count 236 k/uL (150-450); RBC 2.98 m/uL (3.80-5.40); WBC 4.5 k/uL (3.8-10.6)
[2020-08-07 05:03] LABS: African American GFR (CKD) >90 (>60 ml/min/1.73 sqM); Anion Gap 4 mmol/L; Blood Urea Nitrogen 10 mg/dL (7-17); Calcium 7.6 mg/dL (8.4-10.2); Carbon Dioxide 28 mmol/L (22-30); Chloride 91 mmol/L (98-107); Glucose 84 mg/dL (74-99); Magnesium 1.8 mg/dL (1.6-2.3); Non-African American GFR(CKD) >90 (>60 ml/min/1.73 sqM); Potassium 4.5 mmol/L (3.5-5.1); Sodium 123 mmol/L (137-145)
[2020-08-07 06:04] LABS: Glucose,Whole Blood 91 mg/dL (75-99)
[2020-08-07] MEDS: LEVOTHYROXINE 50 MCG TAB PEG/G-TUBE SCH (06:49)
--- NOTE | 2020-08-07 08:07 | XR ---
EXAMINATION TYPE: XR chest 1V portable DATE OF EXAM: 08/07/2020 COMPARISON: Prior chest x-ray 08/06/2020 HISTORY: Pneumonia TECHNIQUE: Single frontal view of the chest is obtained. FINDINGS: Lung volumes are low. There is no evident pneumothorax. Bibasilar attenuation is again see n, the heart is obscured. There is prominence of interstitium, the hemidiaphragms are obscured. IMPRESSION: No significant change. Possible basilar effusions, pneumonia, atelectasis or edema. Zhane elate for volume overload. Follow-up recommended.
[2020-08-07] MEDS ORDERED: HEPARIN SODIUM,PORCINE 5,000 UNIT/ML 1 ML VIAL IV PRN (08:39)
[2020-08-07] MEDS: MAGNESIUM SULFATE-D5W PMX 1 GM in DEXTROSE/WATER 1 100ML.BAG IVPB SCH ×2 (08:59→11:23)
[2020-08-07] MEDS: HEPARIN SOD,PORK IN 0.45% NACL 25,000 UNIT in 0.45% NACL 1 250ML.BAG IV SCH (08:59)
[2020-08-07] MEDS: PANTOPRAZOLE 40 MG/10 ML VIAL IVP SCH (09:00)
[2020-08-07] MEDS: LEVOTHYROXINE IVP 100 MCG/5 ML VIAL IV SCH (09:00)
[2020-08-07] MEDS: METOPROLOL TARTRATE 5 MG/5 ML VIAL IVP SCH ×2 (09:00→20:14)
[2020-08-07] MEDS: IPRATROPIUM-ALBUTEROL 3 ML NEB INHALATION SCH ×4 (09:42→23:35)
--- NOTE | 2020-08-07 10:07 | P.PN ---
Subjective Progress Note Date: 08/07/20 Principal diagnosis: Acute bibasilar pneumonia possible aspiration pneumonia This is a 70-year-old female with history of multiple medical problems, patient is paraplegic, known history of cerebral palsy, resides at [facility] in [place]. Patient was sent to the ER mostly because she was noted to have shortness of breath, and noted to have in respiratory distress at the shelter. Patient was sent to the ER, and she had multiple abnormal findings including abnormal chest x-ray showing bibasilar atelectasis/infiltrates. Abnormal CT of the abdomen and pelvis confirming the same, abnormal electrolytes with low sodium of 1:15 and elevated potassium of 5 .5. Abnormal TSH. Patient had a chronic indwelling PEG tube, and she had a colostomy in place. The patient is nonverbal, considering the multiple abnormalities noted patient was admitted to the ICU, and I was asked to see her on consultation. Upon my initial evaluation, the patient was noted to be in respiratory distress, seems to be working hard to take a deep breath. She was on a Ventimask, and I recommended switching the Ventimask to a BiPAP with IPAP of 12 and EPAP of 6, and FiO2 of 40%. As soon as the patient was placed on BiPAP, there was clearly evidence of improvement in her respiratory status and was not working as hard to breathe. Hence kept on BiPAP. Reviewed her chest x-ray patient may have paralyzed diaphragms since they seem to be extremely elevated on both sides. Patient may also have aspiration pneumonia although the patient is nothing by mouth, and she has a PEG tube in place used for nutritional support. Hence I recommended broadening the spectrum of coverage with antibiotics, added clindamycin to her cefepime. Patient has multiple ALLERGIES including ALLERGY to penicillin. In the ER, patient was given IV fluids in the form of 0.9 normal saline, she was noted to be clinically dehydrated, repeat sodium in the ICU came up to 117 from 115 on admission. And her potassium came down to 4.9 from 5.9. PCR for covid 19 came back negative. Patient was reevaluated today on 08/06/20, remains in the ICU, sitting in bed, seems to be fairly comfortable. However the patient is in atrial fibrillation, poorly controlled, rate is 114 this morning, and considering the patient had all her medications on hold orally, she is now on Cardizem drip for atrial fibri llation. She is hemodynamically stable, blood pressure is 115/53, and her O2 saturation is 100%, on 4 L nasal cannula. Sodium remains low at 118 and she is now on 3% saline at 20 mL per hour ordered by nephrology on the case. Patient was seen by general surgery, her PEG tube was removed at the bedside, and a 16- [place] Pelletier catheter was placed in the tract and position of the stomach the balloon was inflated with 10 mL of saline and the patient is to have x-rays to confirm position of the feeding tube. Follow-up x-ray showed adequate placement of the PEG tube and seems to be appropriately placed. Hence we will likely start feeding tomorrow. In the meantime the patient could be given her oral medications via PEG tube, and no need for a nasogastric tube. WBC count today is 4.7 hemoglobin is 9.1. Sodium went up today from 118-122. And her renal functioning seems to be normal. Bicarb is 28. Pro-calcitonin is 0.10, seems to be negligible. Follow-up chest x-ray showed again low lung volumes and elevated diaphragms, patient continues to have perihilar and basilar infiltrate/atel ectasis. On 08/07/2020 patient seen in follow-up in the intensive care unit, she is awake, she is confused, she is disoriented to place and time. Her speech is garbled. The patient seems to be in no acute distress. This morning she is on 2 L of oxygen, her pulse ox is 96-98%, patient is afebrile. Today's chest x-ray has been reviewed showing no significant change compared to the prior exam, b asilar effusions, pneumonia, atelectasis. A stability of fluid volume overload not excluded. Patient is currently in sinus mechanism, with a controlled rate, she remains on Cardizem infusion at 10 mg per hour, 0.9 normal saline at a rate of 10 mL per hour. Patient has not been able to receive any of her oral medications related to purulent drainage around the PEG tube site insertion. Surgical services are following. PEG tube position was adjusted by general surgery, abdominal x-ray showed PEG tube appropriately placed. However on this morning's exam there is still some purulent drainage from around the PEG tube site insertion. No feedings have been initiated as of yet. Today's labs have been reviewed, showing white blood cell count of 4.5, hemoglobin of 8.3, serum sodium is 123, potassium is 4.5, chloride is 91, BUN is 10 and creatinine 0.31, proBNP came back at 1250. Lung sounds are diminished at the bases, no major rhonchi or wheezing. Nephrology is following and managing the serum sodium which is up to 123 on today's labs, antibiotic coverage in the form of cefepime and clindamycin. Cultures have been negative to date. Objective - Vital Signs Vital signs: Vital Signs Temp 98.2 F 08/06/20 20:00 Pulse 77 08/07/20 09:30 Resp 24 08/07/20 07:00 BP 111/51 08/07/20 07:00 Pulse Ox 96 08/07/20 07:00 Intake & Output 08/06/20 08/07/20 08/07/20 18:59 06:59 18:59 Intake Total 431.5 Output Total 430 382 32 Balance 1.5 -382 -32 Weight 82.8 kg 79.7 kg Intake: IV 320 Cefepime 1 gm In Sodium 50 Chloride 0.9% 50 ml @ 12. 5 mls/hr IVPB Q12H DARYL Rx #:[id number] Clindamycin 300 mg In 50 Dextrose 5% in Water 50 ml @ 50 mls/hr IVPB Q8HR DARYL Rx#:[id number] Sodium Chloride 3%( 220 Hypertonic) 500 ml @ 20 mls/hr IV .Q24H DARYL Rx#: [id number] Intake, IV Titration 111.5 Amount Diltiazem 125 mg In 111.5 Sodium Chloride 0.9% 100 ml @ Per Protocol IV .Q0M DARYL Rx#:[id number] Output: Urine 430 382 32 Other: Voiding Method Indwelling Catheter Indwelling Catheter - Exam GENERAL EXAM: Alert, 62-year-old white female, suspect underlying neurocognitive disorder, and chronic cognitive impairment, confused, only oriented to self, disoriented to person and time, comfortable in no apparent distress. HEAD: Normocephalic/atraumatic. EYES: Normal reaction of pupils, equal size. Conjunctiva pink, sclera white. NOSE: Clear with pink turbinates. THROAT: No erythema or exudates. NECK: No masses, no JVD, no thyroid enlargement, no adenopathy. CHEST: No chest wall deformity. Symmetrical expansion. LUNGS: Equal air entry with no crackles, wheeze, rhonchi or dullness. CVS: Regular rate and rhythm, normal S1 and S2, no gallops, no murmurs, no rubs ABDOMEN: Soft, nontender. No hepatosplenomegaly, normal bowel sounds, no guarding or rigidity. EXTREMITIES: No clubbing, mild 1+ lower extremity edema, no cyanosis, 2+ pulses and upper and lower extremities. MUSCULOSKELETAL: Spasticity of lower extremities noted, patient has chronic contractures involving bilateral lower extremities SPINE: No scoliosis or deformity SKIN: No rashes CENTRAL NERVOUS SYSTEM: Alert and oriented -1. No focal deficits, tone is normal in all 4 extremities. - Labs CBC & Chem 7: 08/07/20 03:47 08/07/20 03:47 Labs: Abnormal Lab Results - Last 24 Hours (Table) 08/06/20 08/06/20 08/06/20 Range/Units 11:01 14:56 18:27 RBC (3.80-5.40) m/uL Hgb (11.4-16.0) gm/dL Hct (34.0-46.0) % RDW (11.5-15.5) % Lymphocytes # (1.0-4.8) k/uL Sodium 122 L 122 L (137-145) mmol/L Chloride (98-107) mmol/L Creatinine (0.52-1.04) mg/dL POC Glucose (mg/dL) 120 H (75-99) mg/dL Calcium (8.4-10.2) mg/dL 08/06/20 08/07/20 08/07/20 Range/Units 20:26 00:07 03:47 RBC 2.98 L (3.80-5.40) m/uL Hgb 8.3 L (11.4-16.0) gm/dL Hct 26.7 L (34.0-46.0) % RDW 16.0 H (11.5-15.5) % Lymphocytes # 0.6 L (1.0-4.8) k/uL Sodium 122 L (137-145) mmol/L Chloride (98-107) mmol/L Creatinine (0.52-1.04) mg/dL POC Glucose (mg/dL) 103 H (75-99) mg/dL Calcium (8.4-10.2) mg/dL 08/07/20 Range/Units 03:47 RBC (3.80-5.40) m/uL Hgb (11.4-16.0) gm/dL Hct (34.0-46.0) % RDW (11.5-15.5) % Lymphocytes # (1.0-4.8) k/uL Sodium 123 L (137-145) mmol/L Chloride 91 L (98-107) mmol/L Creatinine 0.31 L (0.52-1.04) mg/dL POC Glucose (mg/dL) (75-99) mg/dL Calcium 7.6 L (8.4-10.2) mg/dL Microbiology - Last 24 Hours (Table) 08/04/20 18:15 Blood Culture - Preliminary Blood No Growth after 48 hours Assessment and Plan Plan: Assessment: Bibasilar pneumonia, strongly suspect aspiration pneumonia. 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 Severe hypovolemic hyponatremia and hyperkalemia, patient is hypovolemic on presentation, improving with hydration, and improving with 3% saline, sodium this morning is 122. Malpositioning of the PEG tube , hence the old PEG tube was removed, and a new PEG tube was placed by Dr. Cao. Hypothyroidism, patient will be placed on a higher dose of levothyroxine, dose was increased from 112 g to 125. Medical debility secondary to cerebral palsy and paraplegia. Chronic atrial fibrillation. Plan: Continue abiotic spur ID service recommendations, vital signs are stable, patient has been afebrile, no vasoactive drips, patient is awake and alert, not sure what her baseline mental status is, suspect underlying cognitive impairment, the patient is responding to verbal stimulation, no respiratory distress, tube feedings have not been restarted as of yet, there is still some small amount of purulent drainage from around the PEG tube site, we'll switch some of her oral medications to IV, proBNP was noted, chest x-ray shows signs of fluid overload, however oxygenation has been stable, we'll consider IV Lasix. We'll continue to follow I performed a history & physical examination of the patient and discussed their management with my nurse practitioner, Hollie Cornelius. I reviewed the nurse practitioner's note and agree with the documented findings and plan of care. Lung sounds are positive for diminished breath sounds. The findings and the impression was discussed with the patient. I attest to the documentation by the nurse practitioner. Time with Patient: Greater than 30
--- NOTE | 2020-08-07 10:19 | P.PN ---
Subjective Progress Note Date: 08/07/20 Patient is awake and alert this morning. She appears comfortable and in no acute distress. She is currently on 2 L of oxygen via nasal cannula. Objective - Vital Signs Vital signs: Vital Signs Temp 98.2 F 08/06/20 20:00 Pulse 77 08/07/20 09:30 Resp 24 08/07/20 07:00 BP 111/51 08/07/20 07:00 Pulse Ox 96 08/07/20 07:00 Intake & Output 08/06/20 08/07/20 08/07/20 18:59 06:59 18:59 Intake Total 431.5 Output Total 430 382 32 Balance 1.5 -382 -32 Weight 82.8 kg 79.7 kg Intake: IV 320 Cefepime 1 gm In Sodium 50 Chloride 0.9% 50 ml @ 12. 5 mls/hr IVPB Q12H DARYL Rx #:[id number] Clindamycin 300 mg In 50 Dextrose 5% in Water 50 ml @ 50 mls/hr IVPB Q8HR DARYL Rx#:[id number] Sodium Chloride 3%( 220 Hypertonic) 500 ml @ 20 mls/hr IV .Q24H DARYL Rx#: [id number] Intake, IV Titration 111.5 Amount Diltiazem 125 mg In 111.5 Sodium Chloride 0.9% 100 ml @ Per Protocol IV .Q0M DARYL Rx#:[id number] Output: Urine 430 382 32 Other: Voiding Method Indwelling Catheter Indwelling Catheter - Exam General: The patient is awake and alert, she is in no acute distress Eye: there is normal conjunctiva bilaterally. Neck: The neck is supple, there is no JVD. Cardiovascular: Normal S1-S2, no S3-S4, no murmurs. Respiratory: Lungs clear to anterior chest auscultation Gastrointestinal: Abdomen is soft, nontender Musculoskeletal: There is +1 pedal edema. Skin: Skin is warm and dry - Labs CBC & Chem 7: 08/07/20 03:47 08/07/20 03:47 Labs: Abnormal Lab Results - Last 24 Hours (Table) 08/06/20 08/06/20 08/06/20 Range/Units 11:01 14:56 18:27 RBC (3.80-5.40) m/uL Hgb (11.4-16.0) gm/dL Hct (34.0-46.0) % RDW (11.5-15.5) % Lymphocytes # (1.0-4.8) k/uL Sodium 122 L 122 L (137-145) mmol/L Chloride (98-107) mmol/L Creatinine (0.52-1.04) mg/dL POC Glucose (mg/dL) 120 H (75-99) mg/dL Calcium (8.4-10.2) mg/dL 08/06/20 08/07/20 08/07/20 Range/Units 20:26 00:07 03:47 RBC 2.98 L (3.80-5.40) m/uL Hgb 8.3 L (11.4-16.0) gm/dL Hct 26.7 L (34.0-46.0) % RDW 16.0 H (11.5-15.5) % Lymphocytes # 0.6 L (1.0-4.8) k/uL Sodium 122 L (137-145) mmol/L Chloride (98-107) mmol/L Creatinine (0.52-1.04) mg/dL POC Glucose (mg/dL) 103 H (75-99) mg/dL Calcium (8.4-10.2) mg/dL 08/07/20 Range/Units 03:47 RBC (3.80-5.40) m/uL Hgb (11.4-16.0) gm/dL Hct (34.0-46.0) % RDW (11.5-15.5) % Lymphocytes # (1.0-4.8) k/uL Sodium 123 L (137-145) mmol/L Chloride 91 L (98-107) mmol/L Creatinine 0.31 L (0.52-1.04) mg/dL POC Glucose (mg/dL) (75-99) mg/dL Calcium 7.6 L (8.4-10.2) mg/dL Microbiology - Last 24 Hours (Table) 08/04/20 18:15 Blood Culture - Preliminary Blood No Growth after 48 hours Assessment and Plan Assessment: Patient is a 70-year-old female with a PMH of cerebral palsy, paraplegic, minimally verbal, with a gastrostomy tube resident of [facility] in [place] who was sent to the emergency room due to shortness of breath. Patient has a public guardian (Melva at [phone]). Patient was evaluated in the ER and admitted to the hospital for further management of her medical problems noted below 1. Acute hypoxic respiratory failure, required BiPAP on presentation currently on 2 L of oxygen via nasal cannula. Continue to monitor in the ICU. Managed by pulmonology. 2. Left lower lobe pneumonia, with concerns about aspiration. Started on broad-spectrum antibiotic with cefepime and clindamycin managed by ICU. Pro- calcitonin slightly elevated and blood culture negative to date. Coronavirus PCR negative 3. Severe hyponatremia with sodium level of 115 on presentation. Hypovolemic hyponatremia. Improving gradually. Nephrology consulted. Avoid overcorrection. Treated with normal saline then hypertonic saline for a short time managed by nephrology 4. Hypomagnesemia, replaceD 5. PEG tube malpositioned, general surgery following. Pelletier catheter was inserted to keep track open with plan to place a new PEG tube today at bedside 6. History of cerebral palsy with severe intellectual disability chronically nonverbal Chronic medical problems: Hypothyroidism, hyperlipidemia, chronic anticoagulation with Eliquis. Continue home medication Patient is currently on IV amiodarone and IV Cardizem drip as she is nothing by mouth and unable to get her medication orally. Eliquis is been on hold and plan by ICU team to start IV heparin in the meantime until her PEG tube was inserted and functional Today, I reviewed her medication list and lab work results. Continue current re gimen. Repeat lab work as ordered.
[2020-08-07 10:22] LABS: INR 1.1 (<1.2); Partial Thromboplastin Time 31.8 sec (22.0-30.0); Prothrombin Time 11.2 sec (9.0-12.0)
[2020-08-07] MEDS ORDERED: FUROSEMIDE 10 MG/ML 4 ML VIAL IV STA (10:45)
[2020-08-07] MEDS: CEFEPIME 1 GM in SODIUM CHLORIDE 0.9% 50 ML IVPB SCH ×2 (11:23→23:18)
--- NOTE | 2020-08-07 11:41 | PN ---
PROGRESS NOTE Patient is seen for followup for hyponatremia. Patient's sodium has improved to 123. She was maintained on 3% saline which is now discontinued. Patient remains n.p.o. as we are not able to use the PEG tube which was taken out in anticipation of new PEG tube placement today. However, patient is noted to have pus coming out from the site. This morning she is mildly short of breath. Denies any other significant complaints. PHYSICAL EXAMINATION: Blood pressure is 111/51, heart rate 82 per minute, patient is afebrile. Examination of the heart S1, S2. Examination of lungs, decreased breath sounds at bases. Abdomen is soft, nontender. Examination of the lower extremities shows trace edema, both upper and lower extremities have contractors. MARKETING DEVELOPMENT MANAGER exam shows patient answers simple questions. However, she is not able to carry on a conversation. She has contractures, upper and lower extremities. LABS: Show sodium 123, potassium 4.5, chloride 91, serum creatinine 0.3, hemoglobin of 8.3 g/dL. Chest x-ray shows bilateral infiltrates. ASSESSMENT: 1. Hyponatremia, initially hypovolemic, currently patient appears mildly hypervolemic. I will give her a dose of Lasix. We will discontinue the sodium chloride. Once she is able to take p.o. medications, I will give her a dose of Samsca. 2. Hyperkalemia, possibly associated with use of NSAIDs, currently resolved. 3. Pneumonia maintained on antibiotics. 4. Malfunctioning PEG tube status post removal with evidence of infection at the site of the PEG tube. 5. History of cerebral palsy with patient being mentally challenged. 6. Atrial fibrillation with RVR, maintained on amiodarone. PLAN: Lasix x1, repeat sodium this evening. MMODL / IJN: [id number] /
--- NOTE | 2020-08-07 13:06 | P.PN ---
Subjective Progress Note Date: 08/07/20 CHIEF COMPLAINT: Malnutrition HISTORY OF PRESENT ILLNESS: Patient has a PEG tube the CAT scan shows a PEG tip eroded into the anterior abdominal wall. Patient currently in the ICU. Patient yesterday had removal of PEG tube and replacement with a 16-[place] Pelletier catheter. Today at bedside PEG tube was exchanged by Dr. Cao. Afebrile. WBC 4.5 PHYSICAL EXAM: VITAL SIGNS: Reviewed. GENERAL: Well-developed in no acute distress. HEENT: No sclera icterus. Extraocular movements grossly intact. Moist buccal mucosa. Head is atraumatic, normocephalic. ABDOMEN: Soft. Nondistended. Nontender. Colostomy in left upper quadrant. PEG tube site in clean dry and intact. PEG tube in epigastric area. NEUROLOGIC: Alert and oriented. Cranial nerves II through XII grossly intact. ASSESSMENT: 1. Moderate protein calorie malnutrition status post PEG tube removal and exchange PLAN: -Okay to restart tube feedings -Continue supportive care Physician In Flight Refueling Craftsman note has been reviewed by physician. Signing provider agrees with the documented findings, assessment, and plan of care. Objective - Vital Signs Vital signs: Vital Signs Temp 97.9 F 08/07/20 12:00 Pulse 88 08/07/20 12:57 Resp 29 H 08/07/20 12:00 BP 110/55 08/07/20 12:00 Pulse Ox 97 08/07/20 12:00 Intake & Output 08/06/20 08/07/20 08/07/20 18:59 06:59 18:59 Intake Total 431.5 350 Output Total 430 382 432 Balance 1.5 -382 -82 Weight 82.8 kg 79.7 kg Intake: IV 320 350 0.9 50 Cefepime 1 gm In Sodium 50 100 Chloride 0.9% 50 ml @ 12. 5 mls/hr IVPB Q12H [facility]ARYL Rx #:[id number] Clindamycin 300 mg In 50 Dextrose 5% in Water 50 ml @ 50 mls/hr IVPB Q8HR DARYL Rx#:[id number] Magnesium Sulfate-D5w Pmx 200 1 gm In Dextrose/Water 1 100ml.bag @ 100 mls/hr IVPB Q1H [facility]RAYL Rx#: [id number] Sodium Chloride 3%( 220 Hypertonic) 500 ml @ 20 mls/hr IV .Q24H DARYL Rx#: [id number] Intake, IV Titration 111.5 Amount Diltiazem 125 mg In 111.5 Sodium Chloride 0.9% 100 ml @ Per Protocol IV .Q0M DARYL Rx#:[id number] Output: Urine 430 382 432 Other: Voiding Method Indwelling Catheter Indwelling Catheter Indwelling Catheter - Labs CBC & Chem 7: 08/07/20 03:47 08/07/20 03:47 Labs: Abnormal Lab Results - Last 24 Hours (Table) 08/06/20 08/06/20 08/06/20 Range/Units 14:56 18:27 20:26 RBC (3.80-5.40) m/uL Hgb (11.4-16.0) gm/dL Hct (34.0-46.0) % RDW (11.5-15.5) % Lymphocytes # (1.0-4.8) k/uL APTT (22.0-30.0) sec Sodium 122 L 122 L (137-145) mmol/L Chloride (98-107) mmol/L Creatinine (0.52-1.04) mg/dL POC Glucose (mg/dL) 120 H (75-99) mg/dL Calcium (8.4-10.2) mg/dL 08/07/20 08/07/20 08/07/20 Range/Units 00:07 03:47 03:47 RBC 2.98 L (3.80-5.40) m/uL Hgb 8.3 L (11.4-16.0) gm/dL Hct 26.7 L (34.0-46.0) % RDW 16.0 H (11.5-15.5) % Lymphocytes # 0.6 L (1.0-4.8) k/uL APTT (22.0-30.0) sec Sodium 123 L (137-145) mmol/L Chloride 91 L (98-107) mmol/L Creatinine 0.31 L (0.52-1.04) mg/dL POC Glucose (mg/dL) 103 H (75-99) mg/dL Calcium 7.6 L (8.4-10.2) mg/dL 08/07/20 Range/Units 09:23 RBC (3.80-5.40) m/uL Hgb (11.4-16.0) gm/dL Hct (34.0-46.0) % RDW (11.5-15.5) % Lymphocytes # (1.0-4.8) k/uL APTT 31.8 H (22.0-30.0) sec Sodium (137-145) mmol/L Chloride (98-107) mmol/L Creatinine (0.52-1.04) mg/dL POC Glucose (mg/dL) (75-99) mg/dL Calcium (8.4-10.2) mg/dL Microbiology - Last 24 Hours (Table) 08/04/20 18:15 Blood Culture - Preliminary Blood No Growth after 48 hours
[2020-08-07] MEDS: AMIODARONE 300 MG in DEXTROSE 5% IN WATER 250 ML IV SCH ×4 (16:25→17:39)
[2020-08-07] MEDS: DILTIAZEM 125 MG in SODIUM CHLORIDE 0.9% 100 ML IV SCH (16:25)
[2020-08-08] MEDS: DILTIAZEM 125 MG in SODIUM CHLORIDE 0.9% 100 ML IV SCH (03:29)
[2020-08-08] MEDS: AMIODARONE 300 MG in DEXTROSE 5% IN WATER 250 ML IV SCH ×2 (03:29)
[2020-08-08 04:28] LABS: Basophils # (A) 0.1 k/uL (0-0.2); Basophils % (A) 1 %; Eosinophils % (A) 1 %; HCT 27.7 % (34.0-46.0); HGB 9.1 gm/dL (11.4-16.0); Lymphocytes # (A) 0.9 k/uL (1.0-4.8); Lymphocytes % (A) 18 %; MCH 29.1 pg (25.0-35.0); MCHC 32.8 g/dL (31.0-37.0); MCV 88.8 fL (80.0-100.0); Mean Platelet Volume 7.4; Monocytes # (A) 0.3 k/uL (0-1.0); Monocytes % (A) 6 %; Neutrophils # (A) 3.5 k/uL (1.3-7.7); Neutrophils % (A) 72 %; Platelet Count 222 k/uL (150-450); RBC 3.12 m/uL (3.80-5.40); WBC 4.8 k/uL (3.8-10.6)
[2020-08-08 04:49] LABS: African American GFR (CKD) >90 (>60 ml/min/1.73 sqM); Anion Gap 3 mmol/L; Blood Urea Nitrogen 8 mg/dL (7-17); Calcium 7.7 mg/dL (8.4-10.2); Carbon Dioxide 31 mmol/L (22-30); Chloride 88 mmol/L (98-107); Glucose 103 mg/dL (74-99); Magnesium 1.9 mg/dL (1.6-2.3); Non-African American GFR(CKD) >90 (>60 ml/min/1.73 sqM); Potassium 3.7 mmol/L (3.5-5.1); Sodium 122 mmol/L (137-145)
[2020-08-08] MEDS: POTASSIUM CHLORIDE 10 MEQ in WATER FOR INJECTION 1 100ML.BAG IVPB SCH ×2 (07:02→08:28)
[2020-08-08] MEDS: IPRATROPIUM-ALBUTEROL 3 ML NEB INHALATION SCH ×4 (08:08→21:10)
[2020-08-08] MEDS: PANTOPRAZOLE 40 MG/10 ML VIAL IVP SCH (08:27)
[2020-08-08] MEDS: METOPROLOL TARTRATE 5 MG/5 ML VIAL IVP SCH (08:27)
[2020-08-08] MEDS: LEVOTHYROXINE IVP 100 MCG/5 ML VIAL IV SCH (08:27)
--- NOTE | 2020-08-08 08:28 | XR ---
EXAMINATION TYPE: XR chest 1V portable DATE OF EXAM: 08/08/2020 COMPARISON: 08/07/2020 HISTORY: Shortness of breath TECHNIQUE: Single frontal view of the chest is obtained. FINDINGS: Elevated hemidiaphragms bilaterally with bilateral consolidation and pleural effusion. Cur vature of the spine noted. No obvious pneumothorax. Contrast within the bowel noted. IMPRESSION: 1. Stable exam demonstrated markedly limited inspiration persistent bilateral consolidation and pleur al effusions. Correlate for pneumonia versus CHF
[2020-08-08] MEDS: CLINDAMYCIN 300 MG in DEXTROSE 5% IN WATER 50 ML IVPB SCH ×4 (09:30→17:01)
[2020-08-08] MEDS: APIXABAN 5 MG TAB PO SCH ×2 (10:36→20:18)
[2020-08-08] MEDS: ASPIRIN 81 MG PO SCH (10:36)
[2020-08-08] MEDS: AMIODARONE 200 MG TAB PO SCH (10:36)
[2020-08-08] MEDS: METOPROLOL TARTRATE 25 MG TAB PO SCH ×2 (10:36→20:18)
[2020-08-08] MEDS: FLUDROCORTISONE 0.1 MG TAB PO SCH (10:37)
[2020-08-08] MEDS: CEFEPIME 1 GM in SODIUM CHLORIDE 0.9% 50 ML IVPB SCH ×2 (10:37→20:18)
--- NOTE | 2020-08-08 10:41 | P.PN ---
Subjective Progress Note Date: 08/08/20 Principal diagnosis: Acute bibasilar pneumonia possible aspiration pneumonia This is a 70-year-old female with history of multiple medical problems, patient is paraplegic, known history of cerebral palsy, resides at [facility] in [place]. Patient was sent to the ER mostly because she was noted to have shortness of breath, and noted to have in respiratory distress at the half-way. Patient was sent to the ER, and she had multiple abnormal findings including abnormal chest x-ray showing bibasilar atelectasis/infiltrates. Abnormal CT of the abdomen and pelvis confirming the same, abnormal electrolytes with low sodium of 1:15 and elevated potassium of 5 .5. Abnormal TSH. Patient had a chronic indwelling PEG tube, and she had a colostomy in place. The patient is nonverbal, considering the multiple abnormalities noted patient was admitted to the ICU, and I was asked to see her on consultation. Upon my initial evaluation, the patient was noted to be in respiratory distress, seems to be working hard to take a deep breath. She was on a Ventimask, and I recommended switching the Ventimask to a BiPAP with IPAP of 12 and EPAP of 6, and FiO2 of 40%. As soon as the patient was placed on BiPAP, there was clearly evidence of improvement in her respiratory status and was not working as hard to breathe. Hence kept on BiPAP. Reviewed her chest x-ray patient may have paralyzed diaphragms since they seem to be extremely elevated on both sides. Patient may also have aspiration pneumonia although the patient is nothing by mouth, and she has a PEG tube in place used for nutritional support. Hence I recommended broadening the spectrum of coverage with antibiotics, added clindamycin to her cefepime. Patient has multiple ALLERGIES including ALLERGY to penicillin. In the ER, patient was given IV fluids in the form of 0.9 normal saline, she was noted to be clinically dehydrated, repeat sodium in the ICU came up to 117 from 115 on admission. And her potassium came down to 4.9 from 5.9. PCR for covid 19 came back negative. Patient was reevaluated today on 08/06/20, remains in the ICU, sitting in bed, seems to be fairly comfortable. However the patient is in atrial fibrillation, poorly controlled, rate is 114 this morning, and considering the patient had all her medications on hold orally, she is now on Cardizem drip for atrial fibri llation. She is hemodynamically stable, blood pressure is 115/53, and her O2 saturation is 100%, on 4 L nasal cannula. Sodium remains low at 118 and she is now on 3% saline at 20 mL per hour ordered by nephrology on the case. Patient was seen by general surgery, her PEG tube was removed at the bedside, and a 16- [place] Pelletier catheter was placed in the tract and position of the stomach the balloon was inflated with 10 mL of saline and the patient is to have x-rays to confirm position of the feeding tube. Follow-up x-ray showed adequate placement of the PEG tube and seems to be appropriately placed. Hence we will likely start feeding tomorrow. In the meantime the patient could be given her oral medications via PEG tube, and no need for a nasogastric tube. WBC count today is 4.7 hemoglobin is 9.1. Sodium went up today from 118-122. And her renal functioning seems to be normal. Bicarb is 28. Pro-calcitonin is 0.10, seems to be negligible. Follow-up chest x-ray showed again low lung volumes and elevated diaphragms, patient continues to have perihilar and basilar infiltrate/atel ectasis. On 08/07/2020 patient seen in follow-up in the intensive care unit, she is awake, she is confused, she is disoriented to place and time. Her speech is garbled. The patient seems to be in no acute distress. This morning she is on 2 L of oxygen, her pulse ox is 96-98%, patient is afebrile. Today's chest x-ray has been reviewed showing no significant change compared to the prior exam, b asilar effusions, pneumonia, atelectasis. A stability of fluid volume overload not excluded. Patient is currently in sinus mechanism, with a controlled rate, she remains on Cardizem infusion at 10 mg per hour, 0.9 normal saline at a rate of 10 mL per hour. Patient has not been able to receive any of her oral medications related to purulent drainage around the PEG tube site insertion. Surgical services are following. PEG tube position was adjusted by general surgery, abdominal x-ray showed PEG tube appropriately placed. However on this morning's exam there is still some purulent drainage from around the PEG tube site insertion. No feedings have been initiated as of yet. Today's labs have been reviewed, showing white blood cell count of 4.5, hemoglobin of 8.3, serum sodium is 123, potassium is 4.5, chloride is 91, BUN is 10 and creatinine 0.31, proBNP came back at 1250. Lung sounds are diminished at the bases, no major rhonchi or wheezing. Nephrology is following and managing the serum sodium which is up to 123 on today's labs, antibiotic coverage in the form of cefepime and clindamycin. Cultures have been negative to date. On 08/08/2020 patient seen in follow-up in intensive care unit, she is resting comfortably in bed, appears to be in no acute distress, remains on 2 L of oxygen, the pulse ox of 98%, hemodynamically patient is stable, not on any vasopressors, A. fib is currently controlled, and actually bradycardic with a rate of 58 BPM, she remains on Cardizem at 10 mg per hour, and amiodarone 0.5 mg/m, heparin drip at weight-based protocol, and IV maintenance fluids of 0.9 normal saline at a rate of KVO. Chest x-ray shows stable exam with markedly limited inspiration and bilateral consolidation and pleural effusions. No fever overnight, no leukocytosis, white blood cell count is 4.8, hemoglobin of 9.1, sodium is 122, stable, down from 123, potassium 3.7, chloride is 88, CO2 is 21, pO2 disease creatinine 0.34. Patient her PEG tube replaced by surgery, there is a small amount of yellowish drainage, which appears to be more seriously on today's exam rather than purulent as it was yesterday, remains on antibiotic clindamycin, cefepime, ID service is following, but cultures have been negative. Does not appear to be in any shortness of breath, breathing comfortably, she is awake and alert, she is watching cartoons on TV. Objective - Vital Signs Vital signs: Vital Signs Temp 98.7 F 08/08/20 08:00 Pulse 59 L 08/08/20 09:00 Resp 55 H 08/08/20 09:00 BP 114/58 08/08/20 09:00 Pulse Ox 98 08/08/20 09:00 Intake & Output 08/07/20 08/08/20 08/08/20 18:59 06:59 18:59 Intake Total 609.375 521.331 230 Output Total 1932 570 60 Balance -1322.625 -48.669 170 Weight 79.7 kg 83.6 kg Intake: IV 510 120 130 0.9 110 120 30 Cefepime 1 gm In Sodium 100 100 Chloride 0.9% 50 ml @ 12. 5 mls/hr IVPB Q12H [facility] Rx #:[id number] Clindamycin 300 mg In 100 Dextrose 5% in Water 50 ml @ 50 mls/hr IVPB Q8HR D[facility]L Rx#:[id number] Magnesium Sulfate-D5w Pmx 200 1 gm In Dextrose/Water 1 100ml.bag @ 100 mls/hr IVPB Q1H D[facility]L Rx#: [id number] Intake, IV Titration 99.375 401.331 100 Amount Amiodarone 300 mg In 30.833 245.833 Dextrose 5% in Water 250 ml @ 0.5 MG/MIN 25 mls/hr IV .Q10H D[facility]L Rx#: [id number] Diltiazem 125 mg In 110.667 Sodium Chloride 0.9% 100 ml @ Per Protocol IV .Q0M DARYL Rx#:[id number] Heparin Sod,Pork in 0.45% 68.542 44.831 NaCl 25,000 unit In 0.45 % NaCl 1 250ml.bag @ 12 UNITS/KG/HR 9.564 mls/hr IV .Q24H DARYL Rx#: [id number] Potassium Chloride 10 meq 100 In Water For Injection 1 100ml.bag @ 100 mls/hr IVPB Q1HR DARYL Rx#: [id number] Output: Urine 1932 570 60 Other: Voiding Method Indwelling Catheter Indwelling Catheter Indwelling Catheter - Exam GENERAL EXAM: Alert, 62-year-old white female, suspect underlying neuroc ognitive disorder, and chronic cognitive impairment, confused, only oriented to self, disoriented to person and time, 2 L of oxygen a pulse ox of 98% comfortable in no apparent distress. HEAD: Normocephalic/atraumatic. EYES: Normal reaction of pupils, equal size. Conjunctiva pink, sclera white. NOSE: Clear with pink turbinates. THROAT: No erythema or exudates. NECK: No masses, no JVD, no thyroid enlargement, no adenopathy. CHEST: No chest wall deformity. Symmetrical expansion. LUNGS: Equal air entry with no crackles, wheeze, rhonchi or dullness. CVS: Regular rate and rhythm, normal S1 and S2, no gallops, no murmurs, no rubs ABDOMEN: Soft, nontender. No hepatosplenomegaly, normal bowel sounds, no guarding or rigidity. EXTREMITIES: No clubbing, mild 1+ lower extremity edema, no cyanosis, 2+ pulses and upper and lower extremities. MUSCULOSKELETAL: Spasticity of lower extremities noted, patient has chronic contractures involving bilateral lower extremities SPINE: No scoliosis or deformity SKIN: No rashes CENTRAL NERVOUS SYSTEM: Alert and oriented -1. No focal deficits, tone is norm al in all 4 extremities. - Labs CBC & Chem 7: 08/08/20 03:58 08/08/20 03:58 Labs: Abnormal Lab Results - Last 24 Hours (Table) 08/07/20 08/07/20 08/08/20 Range/Units 14:46 23:22 03:58 RBC 3.12 L (3.80-5.40) m/uL Hgb 9.1 L (11.4-16.0) gm/dL Hct 27.7 L (34.0-46.0) % RDW 16.0 H (11.5-15.5) % Lymphocytes # 0.9 L (1.0-4.8) k/uL APTT 115.7 H* 87.7 H (22.0-30.0) sec Sodium (137-145) mmol/L Chloride (98-107) mmol/L Carbon Dioxide (22-30) mmol/L Creatinine (0.52-1.04) mg/dL Glucose (74-99) mg/dL Calcium (8.4-10.2) mg/dL 08/08/20 08/08/20 Range/Units 03:58 03:58 RBC (3.80-5.40) m/uL Hgb (11.4-16.0) gm/dL Hct (34.0-46.0) % RDW (11.5-15.5) % Lymphocytes # (1.0-4.8) k/uL APTT 56.3 H (22.0-30.0) sec Sodium 122 L (137-145) mmol/L Chloride 88 L (98-107) mmol/L Carbon Dioxide 31 H (22-30) mmol/L Creatinine 0.34 L (0.52-1.04) mg/dL Glucose 103 H (74-99) mg/dL Calcium 7.7 L (8.4-10.2) mg/dL Microbiology - Last 24 Hours (Table) 08/04/20 18:15 Blood Culture - Preliminary Blood No Growth after 72 hours Assessment and Plan Plan: Assessment: #1. Acute hypoxic respiratory failure related to possibility of bibasilar pneumonia, strongly suspect aspiration pneumonia. #2. 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 Malpositioning of the PEG tube, status post surgical replacement of the PEG tube #4. Hyponatremia, likely hypovolemic, improved, patient is status post hypertonic saline infusion, which has improved serum sodium and hypertonic saline has been discontinued #5. Hypothyroidism, levothyroxine #6. Nothing by mouth status, related to malpositioning of the PEG tube, will restart tube feedings today #7. Suspect chronic cognitive impairment #8. Chronic A. fib, controlled, we'll discontinue Cardizem and amiodarone, patient is on chronic anticoagulation in the form of Eliquis Plan: Continue current medical treatment, continue antibiotic as per ID service recommendations, vital signs are stable, maintain aspiration precautions, PEG tube has been replaced, we will restart patient's nutrition, and hydration. His A. fib currently controlled, actually bradycardic, we'll discontinue the IV Cardizem and amiodarone, we will restart patient's home medications per PEG tube. Continue monitoring patient's labs, dyspnea level, febrile pattern, continue on entering in the ICU. I performed a history & physical examination of the patient and discussed their management with my nurse practitioner, Hollie Cornelius. I reviewed the nurse practitioner's note and agree with the documented findings and plan of care. Lung sounds are positive for diminished breath sounds. The findings and the impression was discussed with the patient. I attest to the documentation by the nurse practitioner. Time with Patient: Less than 30
[2020-08-08] MEDS ORDERED: FUROSEMIDE 10 MG/ML 2 ML VIAL IV STA (10:50)
[2020-08-08] MEDS ORDERED: TOLVAPTAN 15 MG 1/2 TABLET PO ONE (11:15)
--- NOTE | 2020-08-08 13:07 | PN ---
PROGRESS NOTE Patient is seen for followup for hyponatremia. The patient had a PEG tube placed yesterday. She is able to take p.o. medications now. She was hypervolemic and received a dose of IV Lasix yesterday. Serum sodium remains at 122. The patient was also in atrial fibrillation with RVR, currently maintained on amiodarone. PHYSICAL EXAMINATION: On examination today, blood pressure is 114/58, heart rate 59 per minute, she is afebrile. Examination of the heart S1, S2. Examination of the lungs, bilateral breath sounds are heard. Decreased breath sounds at bases. Abdomen is soft, nontender. Examination lower extremities shows contractures. Trace edema noted. There are contractures noted in the upper extremities as well. LABS: Show sodium 122, potassium 3.7, chloride 88, CO2 is 31, BUN 8 serum creatinine 0.34. ASSESSMENT: 1. Hyponatremia, currently hypervolemic status post IV Lasix yesterday. Urine osmolality was elevated on initial admission. Patient was hypovolemic initially. She has received IV fluids as well as 3% saline amp. Serum sodium was 115 on initial admission now staying at about 122. Patient was not able to take p.o. medications until the PEG tube was placed yesterday. I will give her a dose of Samsca today given the hypervolemic hyponatremia. 2. Volume overload, status post IV Lasix yesterday. Repeat a dose of 20 mg IV today. 3. Malfunctioning PEG tube, status post removal and recent reinsertion of new PEG tube yesterday. 4. Cerebral palsy, patient being mentally challenged. 5. Atrial fibrillation, heart rate slightly better, currently maintained on amiodarone. 6. Hypothyroidism, Synthroid was increased this admission. 7. Acute hypoxic respiratory failure, status post BiPAP. 8. Bibasal pneumonia maintained on antibiotics. PLAN: Tolvaptan 50 mg p.o. x1 now. Repeat Lasix 20 mg IV push today. Repeat sodium this evening and then again in a.m. MMODL / IJN: [id number] /
--- NOTE | 2020-08-08 13:55 | P.PN ---
Subjective Progress Note Date: 08/08/20 CHIEF COMPLAINT: Malnutrition HISTORY OF PRESENT ILLNESS: Patient has a PEG tube the CAT scan shows a PEG tip eroded into the anterior abdominal wall. Patient has had PEG tube removed and exchanged. She's currently been restarted on her tube feedings. She is currently at 10 mL per hour. She is afebrile. WBC 4.8 PHYSICAL EXAM: VITAL SIGNS: Reviewed. GENERAL: Well-developed in no acute distress. HEENT: No sclera icterus. Extraocular movements grossly intact. Moist buccal mucosa. Head is atraumatic, normocephalic. ABDOMEN: Soft. Nondistended. Nontender. Colostomy in left upper quadrant. PEG tube site in clean dry and intact. PEG tube in epigastric area. NEUROLOGIC: Alert and oriented. Cranial nerves II through XII grossly intact. ASSESSMENT: 1. Moderate protein calorie malnutrition status post PEG tube removal and exchange PLAN: -Titrate tube feedings to goal -Continue supportive care Physician [employer] Supervisor note has been reviewed by physician. Signing provider agrees with the documented findings, assessment, and plan of care. Objective - Vital Signs Vital signs: Vital Signs Temp 98.9 F 08/08/20 12:00 Pulse 62 08/08/20 13:00 Resp 20 08/08/20 13:00 BP 111/56 08/08/20 13:00 Pulse Ox 99 08/08/20 13:00 Intake & Output 08/07/20 08/08/20 08/08/20 18:59 06:59 18:59 Intake Total 609.375 521.331 430 Output Total 1932 570 85 Balance -1322.625 -48.669 345 Weight 79.7 kg 83.6 kg Intake: IV 510 120 250 0.9 110 120 50 Cefepime 1 gm In Sodium 100 100 Chloride 0.9% 50 ml @ 12. 5 mls/hr IVPB Q12H [facility] Rx #:[id number] Clindamycin 300 mg In 100 100 Dextrose 5% in Water 50 ml @ 50 mls/hr IVPB Q8HR [facility] Rx#:[id number] Magnesium Sulfate-D5w Pmx 200 1 gm In Dextrose/Water 1 100ml.bag @ 100 mls/hr IVPB Q1H [facility] Rx#: [id number] Intake, IV Titration 99.375 401.331 100 Amount Amiodarone 300 mg In 30.833 245.833 Dextrose 5% in Water 250 ml @ 0.5 MG/MIN 25 mls/hr IV .Q10H [facility] Rx#: [id number] Diltiazem 125 mg In 110.667 Sodium Chloride 0.9% 100 ml @ Per Protocol IV .Q0M [facility]L Rx#:[id number] Heparin Sod,Pork in 0.45% 68.542 44.831 NaCl 25,000 unit In 0.45 % NaCl 1 250ml.bag @ 12 UNITS/KG/HR 9.564 mls/hr IV .Q24H [facility]L Rx#: [id number] Potassium Chloride 10 meq 100 In Water For Injection 1 100ml.bag @ 100 mls/hr IVPB Q1HR [facility]L Rx#: [id number] Tube Feeding 20 Other 60 Output: Urine 1932 570 85 Other: Voiding Method Indwelling Catheter Indwelling Catheter Indwelling Catheter - Labs CBC & Chem 7: 08/08/20 03:58 08/08/20 03:58 Labs: Abnormal Lab Results - Last 24 Hours (Table) 08/07/20 08/07/20 08/08/20 Range/Units 14:46 23:22 03:58 RBC 3.12 L (3.80-5.40) m/uL Hgb 9.1 L (11.4-16.0) gm/dL Hct 27.7 L (34.0-46.0) % RDW 16.0 H (11.5-15.5) % Lymphocytes # 0.9 L (1.0-4.8) k/uL APTT 115.7 H* 87.7 H (22.0-30.0) sec Sodium (137-145) mmol/L Chloride (98-107) mmol/L Carbon Dioxide (22-30) mmol/L Creatinine (0.52-1.04) mg/dL Glucose (74-99) mg/dL Calcium (8.4-10.2) mg/dL 08/08/20 08/08/20 Range/Units 03:58 03:58 RBC (3.80-5.40) m/uL Hgb (11.4-16.0) gm/dL Hct (34.0-46.0) % RDW (11.5-15.5) % Lymphocytes # (1.0-4.8) k/uL APTT 56.3 H (22.0-30.0) sec Sodium 122 L (137-145) mmol/L Chloride 88 L (98-107) mmol/L Carbon Dioxide 31 H (22-30) mmol/L Creatinine 0.34 L (0.52-1.04) mg/dL Glucose 103 H (74-99) mg/dL Calcium 7.7 L (8.4-10.2) mg/dL Microbiology - Last 24 Hours (Table) 08/04/20 18:15 Blood Culture - Preliminary Blood No Growth after 72 hours
[2020-08-08 14:35] LABS: Hemoglobin A1C 5.4 % (4.0-6.0)
[2020-08-08] MEDS: MAGNESIUM OXIDE 400 MG TAB PO SCH (20:18)
[2020-08-08] MEDS: FAMOTIDINE 20 MG TAB PO SCH (20:18)
--- NOTE | 2020-08-08 20:31 | P.PN ---
Subjective Progress Note Date: 08/08/20 (delayed charting seen at 1500) Principal diagnosis: Shortness of breath Patient is a 70-year-old female with a history of cerebral palsy with G-tube placement, functional quadriplegia, seizure disorder, hypothyroidism, and GERD who presented from her correction facility in [place] to the emergency room due to shortness of breath. Patient seen and examined at bedside. She is nonverbal but does state that she likes [employer]onge[employer]. She refuses to answer other questions. Per nursing there has been drainage from her G-tube but no other acute events. General: Ill appearing, no distress, appears at stated age, Derm: warm, dry, drainage near PEG tube site that appears serus Head: atraumatic, normocephalic, symmetric Eyes: EOMI, no lid lag, anicteric sclera Mouth: no lip lesion, mucus membranes dry Cardiovascular: S1S2 reg, no murmur, positive posterior tibial pulse bilateral, Lungs: Course bs bilateral, no rhonchi, no rales , no accessory muscle use Abdominal: soft, nontender to palpation, no guarding, no appreciable organomegaly Ext: + gross muscle atrophy, no edema, + contractures all 4 extremities Neuro: CN II-XI grossly intact, no focal neuro deficits Psych: Alert, oriented, appropriate affect Left lower lobe pneumonia, possible aspiration versus gram-negative, diaphragmatic paralysis -Continue with cefepime D #5 and clindamycin D # 4 - follow CXR - Pulm hygeine -COVID 19 negative Acute hypoxic respiratory fialure - improving - wean O2 as able Hyponatremia, now hypervolemia - Samsca today, Lasix due to fluid overload - follow sodium - nephro recs Malpositioned PEG tube - replace and appears working correctly - monitor drainage Chronic A fib with RVR, now bradycardiac - off IV amiodaron and cardizem - oral amio - Eliquis Cerebral palasy with functional quadraplegia, cognitive impairment - supportive care Hypothyroidism - Levothyroxine Hypomagnesemia, resolved DVT prophylaxis: Eliquis Discussed with: Patient, nursing Anticipated discharge: 2-[address]: [facility] A total of 65 minutes was spent on the care of this complex patient more than 50% of the time was spent in counseling and care coordination. Objective - Vital Signs Vital signs: Vital Signs Temp 98.9 F 08/08/20 16:00 Pulse 64 08/08/20 19:00 Resp 20 08/08/20 19:00 BP 110/50 08/08/20 19:00 Pulse Ox 99 08/08/20 19:00 Intake & Output 08/08/20 08/08/20 08/09/20 06:59 18:59 06:59 Intake Total 521.331 700 30 Output Total 570 1585 100 Balance -48.669 -885 -70 Weight 83.6 kg Intake: IV 120 370 10 0.9 120 120 10 Cefepime 1 gm In Sodium 100 Chloride 0.9% 50 ml @ 12. 5 mls/hr IVPB Q12H [facility] Rx #:[id number] Clindamycin 300 mg In 150 Dextrose 5% in Water 50 ml @ 50 mls/hr IVPB Q8HR [facility] Rx#:[id number] Intake, IV Titration 401.331 100 Amount Amiodarone 300 mg In 245.833 Dextrose 5% in Water 250 ml @ 0.5 MG/MIN 25 mls/hr IV .Q10H [facility] Rx#: [id number] Diltiazem 125 mg In 110.667 Sodium Chloride 0.9% 100 ml @ Per Protocol IV .Q0M [facility] Rx#:[id number] Heparin Sod,Pork in 0.45% 44.831 NaCl 25,000 unit In 0.45 % NaCl 1 250ml.bag @ 12 UNITS/KG/HR 9.564 mls/hr IV .Q24H [facility] Rx#: [id number] Potassium Chloride 10 meq 100 In Water For Injection 1 100ml.bag @ 100 mls/hr IVPB Q1HR [facility] Rx#: [id number] Tube Feeding 110 20 Other 120 Output: Urine 570 1585 100 Other: Voiding Method Indwelling Catheter Indwelling Catheter - Labs CBC & Chem 7: 08/08/20 03:58 08/08/20 16:03 Labs: Abnormal Lab Results - Last 24 Hours (Table) 08/07/20 08/08/20 08/08/20 Range/Units 23:22 03:58 03:58 RBC 3.12 L (3.80-5.40) m/uL Hgb 9.1 L (11.4-16.0) gm/dL Hct 27.7 L (34.0-46.0) % RDW 16.0 H (11.5-15.5) % Lymphocytes # 0.9 L (1.0-4.8) k/uL APTT 87.7 H (22.0-30.0) sec Sodium 122 L (137-145) mmol/L Chloride 88 L (98-107) mmol/L Carbon Dioxide 31 H (22-30) mmol/L Creatinine 0.34 L (0.52-1.04) mg/dL Glucose 103 H (74-99) mg/dL Calcium 7.7 L (8.4-10.2) mg/dL 08/08/20 08/08/20 Range/Units 03:58 16:03 RBC (3.80-5.40) m/uL Hgb (11.4-16.0) gm/dL Hct (34.0-46.0) % RDW (11.5-15.5) % Lymphocytes # (1.0-4.8) k/uL APTT 56.3 H (22.0-30.0) sec Sodium 125 L (137-145) mmol/L Chloride (98-107) mmol/L Carbon Dioxide (22-30) mmol/L Creatinine (0.52-1.04) mg/dL Glucose (74-99) mg/dL Calcium (8.4-10.2) mg/dL Microbiology - Last 24 Hours (Table) 08/04/20 18:15 Blood Culture - Preliminary Blood No Growth after 72 hours
[2020-08-08] MEDS: HEPARIN SOD,PORK IN 0.45% NACL 25,000 UNIT in 0.45% NACL 1 250ML.BAG IV SCH (23:45)
[2020-08-09] MEDS: CLINDAMYCIN 300 MG in DEXTROSE 5% IN WATER 50 ML IVPB SCH ×8 (00:54→22:56)
[2020-08-09 04:48] LABS: Anisocytosis Slight; Basophils % (A) 1 %; Eosinophils % (A) 1 %; Hypochromasia Slight; Lymphocytes # (A) 0.6 k/uL (1.0-4.8); Lymphocytes % (A) 17 %; MCH 28.7 pg (25.0-35.0); MCHC 32.2 g/dL (31.0-37.0); MCV 89.2 fL (80.0-100.0); Mean Platelet Volume 7.2; Monocytes # (A) 0.3 k/uL (0-1.0); Monocytes % (A) 8 %; Neutrophils # (A) 2.7 k/uL (1.3-7.7); Neutrophils % (A) 71 %; Platelet Count 247 k/uL (150-450); RBC 3.48 m/uL (3.80-5.40); RDW 16.3 % (11.5-15.5); WBC 3.8 k/uL (3.8-10.6)
[2020-08-09 04:54] LABS: ALT 29 U/L (4-34); AST 51 U/L (14-36); African American GFR (CKD) >90 (>60 ml/min/1.73 sqM); Albumin 3.1 g/dL (3.5-5.0); Alkaline Phosphatase 159 U/L (38-126); Anion Gap 4 mmol/L; Blood Urea Nitrogen 7 mg/dL (7-17); Calcium 8.3 mg/dL (8.4-10.2); Carbon Dioxide 34 mmol/L (22-30); Chloride 94 mmol/L (98-107); Glucose 139 mg/dL (74-99); Non-African American GFR(CKD) >90 (>60 ml/min/1.73 sqM); Sodium 132 mmol/L (137-145); Total Bilirubin 0.7 mg/dL (0.2-1.3); Total Protein 6.3 g/dL (6.3-8.2)
[2020-08-09] MEDS: LEVOTHYROXINE 125 MCG TAB PO SCH (06:31)
--- NOTE | 2020-08-09 08:03 | XR ---
EXAMINATION TYPE: XR chest 1V portable DATE OF EXAM: 08/09/2020 COMPARISON: Prior chest x-ray 08/08/2020 HISTORY: Abnormal chest x-ray TECHNIQUE: Single frontal view of the chest is obtained. FINDINGS: There is not significant interval change. Exam is expiratory and rotated. No evident pneum othorax. Right hemidiaphragm is obscured. There is blunting the right costophrenic angle. Heart is ob scured. Interstitium is increased. IMPRESSION: Probable subsegmental basilar atelectatic changes, possible effusion. Expiratory rotated exam. Correlate for possible congestive heart failure.
[2020-08-09] MEDS: METOPROLOL TARTRATE 25 MG TAB PO SCH ×2 (08:29→19:54)
[2020-08-09] MEDS: FAMOTIDINE 20 MG TAB PO SCH ×2 (08:30→19:53)
[2020-08-09] MEDS: IPRATROPIUM-ALBUTEROL 3 ML NEB INHALATION SCH ×4 (08:30→21:01)
[2020-08-09] MEDS: MAGNESIUM OXIDE 400 MG TAB PO SCH ×2 (08:30→19:54)
[2020-08-09] MEDS: APIXABAN 5 MG TAB PO SCH ×2 (08:30→19:54)
[2020-08-09] MEDS: ASPIRIN 81 MG PO SCH (08:30)
[2020-08-09] MEDS: FLUDROCORTISONE 0.1 MG TAB PO SCH (08:30)
[2020-08-09] MEDS: AMIODARONE 200 MG TAB PO SCH (08:30)
--- NOTE | 2020-08-09 09:15 | P.PN ---
Subjective Progress Note Date: 08/09/20 CHIEF COMPLAINT: Malnutrition HISTORY OF PRESENT ILLNESS: Patient has a PEG tube the CAT scan shows a PEG tip eroded into the anterior abdominal wall. Patient has had PEG tube removed and exchanged. She is currently tolerating her tube feedings. She's currently at 40 mL per hour. Patient afebrile. WBC 3.8 PHYSICAL EXAM: VITAL SIGNS: Reviewed. GENERAL: Well-developed in no acute distress. HEENT: No sclera icterus. Extraocular movements grossly intact. Moist buccal mucosa. Head is atraumatic, normocephalic. ABDOMEN: Soft. Nondistended. Nontender. Colostomy in left upper quadrant. PEG tube site in clean dry and intact. PEG tube in epigastric area. NEUROLOGIC: Alert and oriented. Cranial nerves II through XII grossly intact. ASSESSMENT: 1. Moderate protein calorie malnutrition status post PEG tube removal and exchange PLAN: -Titrate tube feedings to goal -Continue supportive care Physician Weigher Alloy note has been reviewed by physician. Signing provider agrees with the documented findings, assessment, and plan of care. Objective - Vital Signs Vital signs: Vital Signs Temp 97.5 F L 08/09/20 04:00 Pulse 68 08/09/20 08:44 Resp 17 08/09/20 07:00 BP 124/60 08/09/20 07:00 Pulse Ox 100 08/09/20 07:00 Intake & Output 08/08/20 08/09/20 08/09/20 18:59 06:59 18:59 Intake Total 700 450 Output Total 1585 1410 Balance -885 -960 Weight 79.7 kg Intake: IV 370 130 0.9 120 130 Cefepime 1 gm In Sodium 100 Chloride 0.9% 50 ml @ 12. 5 mls/hr IVPB Q12H [facility] Rx #:[id number] Clindamycin 300 mg In 150 Dextrose 5% in Water 50 ml @ 50 mls/hr IVPB Q8HR [facility] Rx#:[id number] Intake, IV Titration 100 Amount Potassium Chloride 10 meq 100 In Water For Injection 1 100ml.bag @ 100 mls/hr IVPB Q1HR [facility] Rx#: [id number] Tube Feeding 110 320 Other 120 Output: Urine 1585 1360 Stool 50 Other: Voiding Method Indwelling Catheter Indwelling Catheter - Labs CBC & Chem 7: 08/09/20 04:09 08/09/20 04:09 Labs: Abnormal Lab Results - Last 24 Hours (Table) 08/08/20 08/09/20 08/09/20 Range/Units 16:03 04:09 04:09 RBC 3.48 L (3.80-5.40) m/uL Hgb 10.0 L (11.4-16.0) gm/dL Hct 31.0 L (34.0-46.0) % RDW 16.3 H (11.5-15.5) % Lymphocytes # 0.6 L (1.0-4.8) k/uL Sodium 125 L 132 L (137-145) mmol/L Chloride 94 L (98-107) mmol/L Carbon Dioxide 34 H (22-30) mmol/L Creatinine 0.34 L (0.52-1.04) mg/dL Glucose 139 H (74-99) mg/dL Calcium 8.3 L (8.4-10.2) mg/dL AST 51 H (14-36) U/L Alkaline Phosphatase 159 H (38-126) U/L Albumin 3.1 L (3.5-5.0) g/dL Microbiology - Last 24 Hours (Table) 08/04/20 18:15 Blood Culture - Preliminary Blood No Growth after 96 hours
[2020-08-09] MEDS: CEFEPIME 1 GM in SODIUM CHLORIDE 0.9% 50 ML IVPB SCH ×2 (09:27→19:54)
[2020-08-09] MEDS ORDERED: FUROSEMIDE 10 MG/ML 4 ML VIAL IV ONE (10:00)
--- NOTE | 2020-08-09 10:09 | P.PN ---
Subjective Progress Note Date: 08/09/20 Principal diagnosis: Acute bibasilar pneumonia possible aspiration pneumonia This is a 70-year-old female with history of multiple medical problems, patient is paraplegic, known history of cerebral palsy, resides at [facility] in [place]. Patient was sent to the ER mostly because she was noted to have shortness of breath, and noted to have in respiratory distress at the [facility]. Patient was sent to the ER, and she had multiple abnormal findings including abnormal chest x-ray showing bibasilar atelectasis/infiltrates. Abnormal CT of the abdomen and pelvis confirming the same, abnormal electrolytes with low sodium of 1:15 and elevated potassium of 5 .5. Abnormal TSH. Patient had a chronic indwelling PEG tube, and she had a colostomy in place. The patient is nonverbal, considering the multiple abnormalities noted patient was admitted to the ICU, and I was asked to see her on consultation. Upon my initial evaluation, the patient was noted to be in respiratory distress, seems to be working hard to take a deep breath. She was on a Ventimask, and I recommended switching the Ventimask to a BiPAP with IPAP of 12 and EPAP of 6, and FiO2 of 40%. As soon as the patient was placed on BiPAP, there was clearly evidence of improvement in her respiratory status and was not working as hard to breathe. Hence kept on BiPAP. Reviewed her chest x-ray patient may have paralyzed diaphragms since they seem to be extremely elevated on both sides. Patient may also have aspiration pneumonia although the patient is nothing by mouth, and she has a PEG tube in place used for nutritional support. Hence I recommended broadening the spectrum of coverage with antibiotics, added clindamycin to her cefepime. Patient has multiple ALLERGIES including ALLERGY to penicillin. In the ER, patient was given IV fluids in the form of 0.9 normal saline, she was noted to be clinically dehydrated, repeat sodium in the ICU came up to 117 from 115 on admission. And her potassium came down to 4.9 from 5.9. PCR for covid 19 came back negative. Patient was reevaluated today on 08/06/20, remains in the ICU, sitting in bed, seems to be fairly comfortable. However the patient is in atrial fibrillation, poorly controlled, rate is 114 this morning, and considering the patient had all her medications on hold orally, she is now on Cardizem drip for atrial fibri llation. She is hemodynamically stable, blood pressure is 115/53, and her O2 saturation is 100%, on 4 L nasal cannula. Sodium remains low at 118 and she is now on 3% saline at 20 mL per hour ordered by nephrology on the case. Patient was seen by general surgery, her PEG tube was removed at the bedside, and a 16- Uzbek Pelletier catheter was placed in the tract and position of the stomach the balloon was inflated with 10 mL of saline and the patient is to have x-rays to confirm position of the feeding tube. Follow-up x-ray showed adequate placement of the PEG tube and seems to be appropriately placed. Hence we will likely start feeding tomorrow. In the meantime the patient could be given her oral medications via PEG tube, and no need for a nasogastric tube. WBC count today is 4.7 hemoglobin is 9.1. Sodium went up today from 118-122. And her renal functioning seems to be normal. Bicarb is 28. Pro-calcitonin is 0.10, seems to be negligible. Follow-up chest x-ray showed again low lung volumes and elevated diaphragms, patient continues to have perihilar and basilar infiltrate/atel ectasis. On 08/07/2020 patient seen in follow-up in the intensive care unit, she is awake, she is confused, she is disoriented to place and time. Her speech is garbled. The patient seems to be in no acute distress. This morning she is on 2 L of oxygen, her pulse ox is 96-98%, patient is afebrile. Today's chest x-ray has been reviewed showing no significant change compared to the prior exam, b asilar effusions, pneumonia, atelectasis. A stability of fluid volume overload not excluded. Patient is currently in sinus mechanism, with a controlled rate, she remains on Cardizem infusion at 10 mg per hour, 0.9 normal saline at a rate of 10 mL per hour. Patient has not been able to receive any of her oral medications related to purulent drainage around the PEG tube site insertion. Surgical services are following. PEG tube position was adjusted by general surgery, abdominal x-ray showed PEG tube appropriately placed. However on this morning's exam there is still some purulent drainage from around the PEG tube site insertion. No feedings have been initiated as of yet. Today's labs have been reviewed, showing white blood cell count of 4.5, hemoglobin of 8.3, serum sodium is 123, potassium is 4.5, chloride is 91, BUN is 10 and creatinine 0.31, proBNP came back at 1250. Lung sounds are diminished at the bases, no major rhonchi or wheezing. Nephrology is following and managing the serum sodium which is up to 123 on today's labs, antibiotic coverage in the form of cefepime and clindamycin. Cultures have been negative to date. On 08/08/2020 patient seen in follow-up in intensive care unit, she is resting comfortably in bed, appears to be in no acute distress, remains on 2 L of oxygen, the pulse ox of 98%, hemodynamically patient is stable, not on any vasopressors, A. fib is currently controlled, and actually bradycardic with a rate of 58 BPM, she remains on Cardizem at 10 mg per hour, and amiodarone 0.5 mg/m, heparin drip at weight-based protocol, and IV maintenance fluids of 0.9 normal saline at a rate of KVO. Chest x-ray shows stable exam with markedly limited inspiration and bilateral consolidation and pleural effusions. No fever overnight, no leukocytosis, white blood cell count is 4.8, hemoglobin of 9.1, sodium is 122, stable, down from 123, potassium 3.7, chloride is 88, CO2 is 21, pO2 disease creatinine 0.34. Patient her PEG tube replaced by surgery, there is a small amount of yellowish drainage, which appears to be more seriously on today's exam rather than purulent as it was yesterday, remains on antibiotic clindamycin, cefepime, ID service is following, but cultures have been negative. Does not appear to be in any shortness of breath, breathing comfortably, she is awake and alert, she is watching cartoons on TV. On 08/09/2020 patient seen in follow-up in intensive care unit, she is awake and alert, appears to be in no distress, she is currently on 2 L of oxygen, pulse ox of 100%, hemodynamics is stable, she is afebrile, lung sounds reveal diminished breath sounds at the bases, and bibasilar crackles, today's chest x-ray has been reviewed showing probable subsegmental basilar atelectatic changes, and possible pleural effusions. Patient will receive a dose of IV Lasix today, hemodynamically stable, not on any vasopressors, she is just on 0.9 normal saline at a rate of 10 ML per hour, no other drips. No fever or chills, but culture has been negative were 96 hours. She has been receiving intermittent doses of IV Lasix, she is in -1.8 L over last 24 hours, has a mild bipedal edema, mild pretibial edema. She has been restarted on tube feedings yesterday, she is on Jevity 1.5 at 40 mL an hour, tolerating tube feedings well. Objective - Vital Signs Vital signs: Vital Signs Temp 97.5 F L 08/09/20 04:00 Pulse 68 08/09/20 08:44 Resp 17 08/09/20 07:00 BP 124/60 08/09/20 07:00 Pulse Ox 100 08/09/20 07:00 Intake & Output 08/08/20 08/09/20 08/09/20 18:59 06:59 18:59 Intake Total 700 450 Output Total 1585 1410 Balance -885 -960 Weight 79.7 kg Intake: IV 370 130 0.9 120 130 Cefepime 1 gm In Sodium 100 Chloride 0.9% 50 ml @ 12. 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 HEAD: Normocephalic/atraumatic. EYES: Normal reaction of pupils, equal size. Conjunctiva pink, sclera white. NOSE: Clear with pink turbinates. THROAT: No erythema or exudates. NECK: No masses, no JVD, no thyroid enlargement, no adenopathy. CHEST: No chest wall deformity. Symmetrical expansion. LUNGS: Equal air entry with no crackles, wheeze, rhonchi or dullness. CVS: Regular rate and rhythm, normal S1 and S2, no gallops, no murmurs, no rubs ABDOMEN: Soft, nontender. No hepatosplenomegaly, normal bowel sounds, no guarding or rigidity. Active in place, with tube feedings infusing, with the Jevity 1.5 at rate of 40 ML per hour EXTREMITIES: No clubbing, mild 1+ lower extremity edema, no cyanosis, 2+ pulses and upper and lower extremities. MUSCULOSKELETAL: Spasticity of lower extremities noted, patient has chronic contractures involving bilateral hands and lower extremities SPINE: No scoliosis or deformity SKIN: No rashes CENTRAL NERVOUS SYSTEM: Alert and oriented -1. No focal deficits, tone is normal in all 4 extremities. - Labs CBC & Chem 7: 08/09/20 04:09 08/09/20 04:09 Labs: Abnormal Lab Results - Last 24 Hours (Table) 08/08/20 08/09/20 08/09/20 Range/Units 16:03 04:09 04:09 RBC 3.48 L (3.80-5.40) m/uL Hgb 10.0 L (11.4-16.0) gm/dL Hct 31.0 L (34.0-46.0) % RDW 16.3 H (11.5-15.5) % Lymphocytes # 0.6 L (1.0-4.8) k/uL Sodium 125 L 132 L (137-145) mmol/L Chloride 94 L (98-107) mmol/L Carbon Dioxide 34 H (22-30) mmol/L Creatinine 0.34 L (0.52-1.04) mg/dL Glucose 139 H (74-99) mg/dL Calcium 8.3 L (8.4-10.2) mg/dL AST 51 H (14-36) U/L Alkaline Phosphatase 159 H (38-126) U/L Albumin 3.1 L (3.5-5.0) g/dL Microbiology - Last 24 Hours (Table) 08/04/20 18:15 Blood Culture - Preliminary Blood No Growth after 96 hours Assessment and Plan Plan: Assessment: #1. Acute hypoxic respiratory failure related to possibility of bibasilar pn eumonia, strongly suspect aspiration pneumonia. #2. 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 Malpositioning of the PEG tube, status post surgical replacement of the PEG tube #4. Hyponatremia, likely hypovolemic, improved, patient is status post hypertonic saline infusion, which has improved serum sodium and hypertonic saline has been discontinued. Sodium is improving, and it's up to 132 on today's labs, she has been receiving intermittent doses of Lasix #5. Hypothyroidism, levothyroxine #6. Nothing by mouth status, related to malpositioning of the PEG tube, will restart tube feedings today #7. Suspect chronic cognitive impairment #8. Chronic A. fib, controlled, we'll discontinue Cardizem and amiodarone, patient is on chronic anticoagulation in the form of Eliquis Plan: Continue current antibiotics, patient has been afebrile, no worsening dyspnea, today chest x-ray has been reviewed, showing bibasilar atelectasis, and possible small pleural effusions, will give patient 40 mg of IV Lasix today. tube feedings have been restarted, patient is tolerating them well, microbiology has been reviewed, has been negative. No acute events overnight, maintain aspiration precautions, will continue monitoring the patient in the intensive care unit for another 24 hours. Continue to follow I performed a history & physical examination of the patient and discussed their management with my nurse practitioner, Hollie Cornelius. I reviewed the nurse practitioner's note and agree with the documented findings and plan of care. Lung sounds are positive for diminished breath sounds. The findings and the impression was discussed with the patient. I attest to the documentation by the nurse practitioner. Time with Patient: Less than 30
--- NOTE | 2020-08-09 11:31 | P.PN ---
Subjective Progress Note Date: 08/09/20 Principal diagnosis: Shortness of breath Patient is a 70-year-old female with a history of cerebral palsy with G-tube placement, functional quadriplegia, seizure disorder, hypothyroidism, and GERD who presented from her senior care facility in [place] to the emergency room due to shortness of breath. In the emergency department she underwent an extensive evaluation. She underwent a CT chest/abdomen/pelvis was found to have pulmonary atelectasis and infilraes with elevated diaphragms, and a malposition gastrostomy tube. EKG showed NSR at 68. Lab evaluation showed a sodium of 115, potassium 5.5, chloride 78, BUN 20, creatinine 0.39, magnesium 1.5 , hemoglobin 10.6, TSH 10.8 with free T4 of 1.54. She was admitted to the ICU secondary to her severe hyponatremia. She ultimately was started on 3% saline by nephrology. She was monitored closely. Her PEG tube was reinserted into the stomach by emergency department staff. She is felt to likely have pneumonia and she was also started on cefepime for possible aspiration. Her Covid 19 test came back negative. She was seen by pulmonary and was placed on BiPAP. Clindamycin was added. On 07/06 patient's PEG tube was removed at bedside with gentle traction and a 16-Polish Pelletier catheter was inserted into the stomach with inflation of the balloon. Her oxygenation continued to improve and by 07/06 she was weaned to 2 L nasal cannula. She did develop some signs of fluid overload. She was started on Lasix. She also required Samsca to help with her hyponatremia. While she was nothing by mouth she developed atrial fibrillation with rapid ventricular response and required IV amiodarone and Cardizem as well as a heparin drip. Once her PEG tube was reinserted she was resumed on her home oral amiodarone and Lopressor. She continued to slowly improve. After second dose of Samsca her sodium came up to 132. Patient seen and examined at bedside. Today she repeatedly says she can't really and then said yes. She denies any pain but said yes to everything else affect. General: non toxic, no distress, appears at stated age, Derm: warm, dry, drainage near PEG tube site that appears serus Head: atraumatic, normocephalic, symmetric Eyes: EOMI, no lid lag, anicteric sclera Mouth: no lip lesion, mucus membranes dry Cardiovascular: S1S2 reg, no murmur, positive posterior tibial pulse bilateral, Lungs: Course bs bilateral, no rhonchi, no rales , no accessory muscle use Abdominal: soft, nontender to palpation, no guarding, no appreciable organomegaly Ext: + gross muscle atrophy, no edema, + contractures all 4 extremities Neuro: CN II-XI grossly intact, no focal neuro deficits Psych: Alert, oriented, appropriate affect Left lower lobe pneumonia, possible aspiration versus gram-negative, diaphragmatic paralysis -Continue with cefepime D #6 and clindamycin D #7 - follow CXR - Pulm hygeine -COVID 19 negative Acute hypoxic respiratory fialure - improving - wean O2 as able Hyponatremia, now hypervolemia - Samsca X 2, Lasix due to fluid overload again - repat sodium in AM,follow closely due to change of 10 in 24 hours. - follow sodium - nephro recs Malpositioned PEG tube - replace and appears working correctly - monitor drainage - tube feedings at goal, free water decreased by nephro. Chronic A fib with RVR, now bradycardiac - off IV amiodaron and cardizem - oral amio, lopressor - Eliquis Cerebral palasy with functional quadraplegia, cognitive impairment - supportive care Hypothyroidism - Levothyroxine Hypomagnesemia, resolved DVT prophylaxis: Deliaqureyna Discussed with: Patient, nursing Anticipated discharge: 2-[address]: F A total of 65 minutes was spent on the care of this complex patient more than 50% of the time was spent in counseling and care coordination. Objective - Vital Signs Vital signs: Vital Signs Temp 98.1 F 08/09/20 08:00 Pulse 63 08/09/20 10:00 Resp 27 H 08/09/20 10:00 BP 130/65 08/09/20 10:00 Pulse Ox 100 08/09/20 10:00 Intake & Output 08/08/20 08/09/20 08/09/20 18:59 06:59 18:59 Intake Total 700 450 280 Output Total 1585 1410 485 Balance -885 -960 -205 Weight 79.7 kg Intake: IV 370 130 130 0.9 120 130 30 Cefepime 1 gm In Sodium 100 50 Chloride 0.9% 50 ml @ 12. 5 mls/hr IVPB Q12H [facility] Rx #:[id number] Clindamycin 300 mg In 150 50 Dextrose 5% in Water 50 ml @ 50 mls/hr IVPB Q8HR [facility] Rx#:[id number] Intake, IV Titration 100 Amount Potassium Chloride 10 meq 100 In Water For Injection 1 100ml.bag @ 100 mls/hr IVPB Q1HR [facility] Rx#: [id number] Tube Feeding 110 320 120 Other 120 30 Output: Urine 1585 1360 485 Stool 50 Other: Voiding Method Indwelling Catheter Indwelling Catheter - Labs CBC & Chem 7: 08/09/20 04:09 08/09/20 04:09 Labs: Abnormal Lab Results - Last 24 Hours (Table) 08/08/20 08/09/20 08/09/20 Range/Units 16:03 04:09 04:09 RBC 3.48 L (3.80-5.40) m/uL Hgb 10.0 L (11.4-16.0) gm/dL Hct 31.0 L (34.0-46.0) % RDW 16.3 H (11.5-15.5) % Lymphocytes # 0.6 L (1.0-4.8) k/uL Sodium 125 L 132 L (137-145) mmol/L Chloride 94 L (98-107) mmol/L Carbon Dioxide 34 H (22-30) mmol/L Creatinine 0.34 L (0.52-1.04) mg/dL Glucose 139 H (74-99) mg/dL Calcium 8.3 L (8.4-10.2) mg/dL AST 51 H (14-36) U/L Alkaline Phosphatase 159 H (38-126) U/L Albumin 3.1 L (3.5-5.0) g/dL Microbiology - Last 24 Hours (Table) 08/04/20 18:15 Blood Culture - Preliminary Blood No Growth after 96 hours
--- NOTE | 2020-08-09 15:26 | PN ---
PROGRESS NOTE Patient is seen for followup for hyponatremia. Her serum sodium has improved to 132. Patient received a dose of Samsca yesterday. She is also volume overloaded and has been receiving IV Lasix. PHYSICAL EXAMINATION: Today, patient is comfortable. She denies any significant complaints. Blood pressure is 146/63, heart rate 65 per minute, she is afebrile. Examination of the heart S1, S2. Examination of lungs, bilateral breath sounds are heard. Abdomen is soft, nontender. Examination of the lower extremities shows edema trace bilaterally. HOUSEKEEPING AID exam shows patient has contractures upper and lower extremities. She answers to simple questions. LABS: Show sodium 132, potassium 4.0, chloride 94, CO2 is 34, BUN 7, serum creatinine 0.34. ASSESSMENT: 1. Hyponatremia, hypervolemic, responded very well to Samsca. However, we need to avoid rapid increase in sodium. I will recheck a serum sodium this afternoon. 2. Volume overload, receiving IV Lasix. 3. Cerebral palsy with patient being mentally challenged. 4. Malpositioned PEG tube, currently replaced. 5. Acute hypoxic respiratory failure, mostly secondary to pneumonia and CHF. 6. Left lower lobe pneumonia, possible aspiration pneumonia, currently improving, maintained on antibiotics. PLAN: Repeat sodium this evening. Hold off on free water to the PEG tube unless serum sodium is rising rapidly. MMODL / IJN: [id number] /
--- NOTE | 2020-08-09 17:05 | CDI ---
Documentation Clarification Form Date: 08/09/2020 04:37:06 PM From: Sophia Guido RN CCDS Admit Date: 08/04/2020 08:21:00 PM Patient Name: Toshia Chang Visit Number: [id number] Discharge Date: ATTENTION: The Clinical Documentation Specialists (CDI) and [facility] Coding Staff appreciate your assistance in clarifying documentation. Please respond to the clarification below the line at the bottom and electronically sign. The CDI & [facility] Coding staff will review the response and follow-up if needed. Please note: Queries are made part of the Legal Health Record. If you have any questions, please contact the author of this message via ITS. Dr. Kellie Laureano Heart Failure is documented in the H&P 08/04 History/Risk Factors: 70-year-old female presents to the ED for shortness of breath and respiratory distress form correction. Medical history: Heart failure, Cerebral palsy, Paraplegic, Clinical Indicators: Home medications: Lasix Bid; Lopressor Q 12, 08/04 VS/Pulse OX: B/P 132/68; HR 67; Temp 98.7 F Axillary; RR 26; Spo2 100% 2L nasal cannula 08/04 BNP: 1110 Echocardiogram Results: In the medical record. 08/04 Chest X Ray: Significant atelectasis at the lung bases Treatment: 08/07 Lasix Iv x1, 08/08 Lasix Iv x1, 08/09 Lasix Iv x1, 08/05 Lopressor Q12, In your professional opinion, can you please clarify the acuity and type of CHF if known? Chronic Systolic Heart Failure Acute on Chronic Systolic Heart Failure Chronic Diastolic Heart Failure: Acute on Chronic Diastolic Heart Failure: Acute on Chronic Systolic & Diastolic Heart Failure: Chronic Systolic & Diastolic Heart Failure: Unable to Determine Other, please specify (Last Revision: December 2017) Lasix was being used to treat hyponatremia as outline in my progress notes not CHF. MTDD
[2020-08-10 04:54] LABS: Anisocytosis Slight; Basophils % (A) 1 %; Eosinophils # (A) 0.1 k/uL (0-0.7); Eosinophils % (A) 1 %; HCT 30.7 % (34.0-46.0); HGB 9.6 gm/dL (11.4-16.0); Hypochromasia Slight; Lymphocytes # (A) 0.9 k/uL (1.0-4.8); Lymphocytes % (A) 18 %; MCH 28.3 pg (25.0-35.0); MCHC 31.3 g/dL (31.0-37.0); MCV 90.5 fL (80.0-100.0); Monocytes # (A) 0.3 k/uL (0-1.0); Monocytes % (A) 7 %; Neutrophils # (A) 3.3 k/uL (1.3-7.7); Neutrophils % (A) 71 %; Platelet Count 254 k/uL (150-450); RBC 3.39 m/uL (3.80-5.40); RDW 16.2 % (11.5-15.5); WBC 4.7 k/uL (3.8-10.6)
[2020-08-10 05:17] LABS: ALT 24 U/L (4-34); AST 35 U/L (14-36); African American GFR (CKD) >90 (>60 ml/min/1.73 sqM); Albumin 3.1 g/dL (3.5-5.0); Alkaline Phosphatase 153 U/L (38-126); Blood Urea Nitrogen 14 mg/dL (7-17); Calcium 8.1 mg/dL (8.4-10.2); Chloride 92 mmol/L (98-107); Glucose 146 mg/dL (74-99); Magnesium 1.6 mg/dL (1.6-2.3); Non-African American GFR(CKD) >90 (>60 ml/min/1.73 sqM); Phosphorus 3.4 mg/dL (2.5-4.5); Potassium 3.4 mmol/L (3.5-5.1); Sodium 136 mmol/L (137-145); Total Bilirubin 0.5 mg/dL (0.2-1.3); Total Protein 6.3 g/dL (6.3-8.2)
[2020-08-10 05:23] LABS: Anion Gap 6 mmol/L; Carbon Dioxide 38 mmol/L (22-30)
[2020-08-10] MEDS ORDERED: Potassium Replacement Protocol 1 EACH MISC MISCELLANE PRN (06:02)
[2020-08-10] MEDS ORDERED: Magnesium Replacement Protocol 1 EACH MISC MISCELLANE PRN (06:04)
[2020-08-10] MEDS: MAGNESIUM SULFATE-D5W PMX 1 GM in DEXTROSE/WATER 1 100ML.BAG IVPB SCH ×2 (06:56→09:08)
[2020-08-10] MEDS: LEVOTHYROXINE 125 MCG TAB PO SCH (06:56)
[2020-08-10] MEDS: POTASSIUM BICARBONATE/CIT AC 20 MEQ TABLET.EFF NG-TUBE SCH ×2 (07:09→09:09)
[2020-08-10] MEDS: IPRATROPIUM-ALBUTEROL 3 ML NEB INHALATION SCH ×4 (07:29→18:53)
--- NOTE | 2020-08-10 09:01 | XR ---
EXAMINATION TYPE: XR chest 1V portable DATE OF EXAM: 08/10/2020 COMPARISON: 08/09/2020 HISTORY: Shortness of breath TECHNIQUE: Single frontal view of the chest is obtained. FINDINGS: Bilateral infiltrate and pleural effusion with diffuse interstitial pattern. Scoliosis not ed. Contrast within the colon seen. No sizable pneumothorax. IMPRESSION: Diffuse pleural parenchymal changes stable. Correlate for CHF. Underlying pneumonia not excluded.
--- NOTE | 2020-08-10 09:07 | P.PN ---
Subjective Progress Note Date: 08/10/20 Principal diagnosis: Acute bibasilar pneumonia possible aspiration pneumonia This is a 70-year-old female with history of multiple medical problems, patient is paraplegic, known history of cerebral palsy, resides at [facility] in [place]. Patient was sent to the ER mostly because she was noted to have shortness of breath, and noted to have in respiratory distress at the assisted. Patient was sent to the ER, and she had multiple abnormal findings including abnormal chest x-ray showing bibasilar atelectasis/infiltrates. Abnormal CT of the abdomen and pelvis confirming the same, abnormal electrolytes with low sodium of 1:15 and elevated potassium of 5 .5. Abnormal TSH. Patient had a chronic indwelling PEG tube, and she had a colostomy in place. The patient is nonverbal, considering the multiple abnormalities noted patient was admitted to the ICU, and I was asked to see her on consultation. Upon my initial evaluation, the patient was noted to be in respiratory distress, seems to be working hard to take a deep breath. She was on a Ventimask, and I recommended switching the Ventimask to a BiPAP with IPAP of 12 and EPAP of 6, and FiO2 of 40%. As soon as the patient was placed on BiPAP, there was clearly evidence of improvement in her respiratory status and was not working as hard to breathe. Hence kept on BiPAP. Reviewed her chest x-ray patient may have paralyzed diaphragms since they seem to be extremely elevated on both sides. Patient may also have aspiration pneumonia although the patient is nothing by mouth, and she has a PEG tube in place used for nutritional support. Hence I recommended broadening the spectrum of coverage with antibiotics, added clindamycin to her cefepime. Patient has multiple ALLERGIES including ALLERGY to penicillin. In the ER, patient was given IV fluids in the form of 0.9 normal saline, she was noted to be clinically dehydrated, repeat sodium in the ICU came up to 117 from 115 on admission. And her potassium came down to 4.9 from 5.9. PCR for covid 19 came back negative. Patient was reevaluated today on 08/06/20, remains in the ICU, sitting in bed, seems to be fairly comfortable. However the patient is in atrial fibrillation, poorly controlled, rate is 114 this morning, and considering the patient had all her medications on hold orally, she is now on Cardizem drip for atrial fibri llation. She is hemodynamically stable, blood pressure is 115/53, and her O2 saturation is 100%, on 4 L nasal cannula. Sodium remains low at 118 and she is now on 3% saline at 20 mL per hour ordered by nephrology on the case. Patient was seen by general surgery, her PEG tube was removed at the bedside, and a 16- [place] Pelletier catheter was placed in the tract and position of the stomach the balloon was inflated with 10 mL of saline and the patient is to have x-rays to confirm position of the feeding tube. Follow-up x-ray showed adequate placement of the PEG tube and seems to be appropriately placed. Hence we will likely start feeding tomorrow. In the meantime the patient could be given her oral medications via PEG tube, and no need for a nasogastric tube. WBC count today is 4.7 hemoglobin is 9.1. Sodium went up today from 118-122. And her renal functioning seems to be normal. Bicarb is 28. Pro-calcitonin is 0.10, seems to be negligible. Follow-up chest x-ray showed again low lung volumes and elevated diaphragms, patient continues to have perihilar and basilar infiltrate/atel ectasis. On 08/07/2020 patient seen in follow-up in the intensive care unit, she is awake, she is confused, she is disoriented to place and time. Her speech is garbled. The patient seems to be in no acute distress. This morning she is on 2 L of oxygen, her pulse ox is 96-98%, patient is afebrile. Today's chest x-ray has been reviewed showing no significant change compared to the prior exam, b asilar effusions, pneumonia, atelectasis. A stability of fluid volume overload not excluded. Patient is currently in sinus mechanism, with a controlled rate, she remains on Cardizem infusion at 10 mg per hour, 0.9 normal saline at a rate of 10 mL per hour. Patient has not been able to receive any of her oral medications related to purulent drainage around the PEG tube site insertion. Surgical services are following. PEG tube position was adjusted by general surgery, abdominal x-ray showed PEG tube appropriately placed. However on this morning's exam there is still some purulent drainage from around the PEG tube site insertion. No feedings have been initiated as of yet. Today's labs have been reviewed, showing white blood cell count of 4.5, hemoglobin of 8.3, serum sodium is 123, potassium is 4.5, chloride is 91, BUN is 10 and creatinine 0.31, proBNP came back at 1250. Lung sounds are diminished at the bases, no major rhonchi or wheezing. Nephrology is following and managing the serum sodium which is up to 123 on today's labs, antibiotic coverage in the form of cefepime and clindamycin. Cultures have been negative to date. On 08/08/2020 patient seen in follow-up in intensive care unit, she is resting comfortably in bed, appears to be in no acute distress, remains on 2 L of oxygen, the pulse ox of 98%, hemodynamically patient is stable, not on any vasopressors, A. fib is currently controlled, and actually bradycardic with a rate of 58 BPM, she remains on Cardizem at 10 mg per hour, and amiodarone 0.5 mg/m, heparin drip at weight-based protocol, and IV maintenance fluids of 0.9 normal saline at a rate of KVO. Chest x-ray shows stable exam with markedly limited inspiration and bilateral consolidation and pleural effusions. No fever overnight, no leukocytosis, white blood cell count is 4.8, hemoglobin of 9.1, sodium is 122, stable, down from 123, potassium 3.7, chloride is 88, CO2 is 21, pO2 disease creatinine 0.34. Patient her PEG tube replaced by surgery, there is a small amount of yellowish drainage, which appears to be more seriously on today's exam rather than purulent as it was yesterday, remains on antibiotic clindamycin, cefepime, ID service is following, but cultures have been negative. Does not appear to be in any shortness of breath, breathing comfortably, she is awake and alert, she is watching cartoons on TV. On 08/09/2020 patient seen in follow-up in intensive care unit, she is awake and alert, appears to be in no distress, she is currently on 2 L of oxygen, pulse ox of 100%, hemodynamics is stable, she is afebrile, lung sounds reveal diminished breath sounds at the bases, and bibasilar crackles, today's chest x-ray has been reviewed showing probable subsegmental basilar atelectatic changes, and possible pleural effusions. Patient will receive a dose of IV Lasix today, hemodynamically stable, not on any vasopressors, she is just on 0.9 normal saline at a rate of 10 ML per hour, no other drips. No fever or chills, but culture has been negative were 96 hours. She has been receiving intermittent doses of IV Lasix, she is in -1.8 L over last 24 hours, has a mild bipedal edema, mild pretibial edema. She has been restarted on tube feedings yesterday, she is on Jevity 1.5 at 40 mL an hour, tolerating tube feedings well. On 08/10/2020 patient seen in follow-up in the intensive care unit, she is awake, she doesn't attempt to respond today, she is being quiet. Doesn't appear to be in any acute distress. Yesterday chest x-ray showed possible pleural effusions, and subsegmental basilar atelectatic changes, in addition patient has had the lower extremity edema, consistent with fluid volume overload, patient was given a dose of IV Lasix yesterday, he has made almost 3 L of urine output, and she is in -1.8 L over last 24 hours, today's exam patient does not appear to be in any respiratory distress, lung sounds revealed diminished breath sounds with dullness at bilateral bases, and bibasilar crackles. Still has lower extremity edema, may be slightly improved, her weight is down by 1.1 kg in the last 24 hours. She is tolerating tube feedings, receiving Jevity 1.5 at 40, with a goal of 40, no nausea vomiting or diarrhea, she is 0.9 normal saline at 10 ML per hour, she remains on 2 L of oxygen, with a pulse ox of 97%. Today's chest x-ray shows stable findings of bibasilar atelectatic changes, and small pleural effusions. Patient has been afebrile, she had a cough, or phlegm production. She remains on antibiotics, in the form of cefepime, clindamycin, cultures have been negative. Objective - Vital Signs Vital signs: Vital Signs Temp 98.6 F 08/10/20 04:00 Pulse 76 08/10/20 07:41 Resp 19 08/10/20 07:00 BP 134/77 08/10/20 07:00 Pulse Ox 97 08/10/20 07:00 Intake & Output 08/09/20 08/10/20 08/10/20 18:59 06:59 18:59 Intake Total 810 610 Output Total 1700 305 Balance -890 305 Weight 78.6 kg Intake: IV 210 130 0.9 110 130 Cefepime 1 gm In Sodium 50 Chloride 0.9% 50 ml @ 12. 5 mls/hr IVPB Q12H DRAYL Rx #:[id number] Clindamycin 300 mg In 50 Dextrose 5% in Water 50 ml @ 50 mls/hr IVPB Q8HR DARYL Rx#:[id number] Intake, IV Titration 50 Amount Clindamycin 300 mg In 50 Dextrose 5% in Water 50 ml @ 50 mls/hr IVPB Q8HR DARYL Rx#:[id number] Tube Feeding 520 480 Other 30 Output: Urine 1700 305 Other: Voiding Method Indwelling Catheter Indwelling Catheter - Exam GENERAL EXAM: Alert, 62-year-old white female, suspect underlying neurocognitive disorder, and chronic cognitive impairment, confused, only or iented to self, disoriented to person and time, 2 L of oxygen a pulse ox of 98% comfortable in no apparent distress. HEAD: Normocephalic/atraumatic. EYES: Normal reaction of pupils, equal size. Conjunctiva pink, sclera white. NOSE: Clear with pink turbinates. THROAT: No erythema or exudates. NECK: No masses, no JVD, no thyroid enlargement, no adenopathy. CHEST: No chest wall deformity. Symmetrical expansion. LUNGS: Equal air entry with no crackles, wheeze, rhonchi or dullness. CVS: Regular rate and rhythm, normal S1 and S2, no gallops, no murmurs, no rubs ABDOMEN: Soft, nontender. No hepatosplenomegaly, normal bowel sounds, no guarding or rigidity. Active in place, with tube feedings infusing, with the Jevity 1.5 at rate of 40 ML per hour EXTREMITIES: No clubbing, mild 1+ lower extremity edema, no cyanosis, 2+ pulses and upper and lower extremities. MUSCULOSKELETAL: Spasticity of lower extremities noted, patient has chronic contractures involving bilateral hands and lower extremities SPINE: No scoliosis or deformity SKIN: No rashes CENTRAL NERVOUS SYSTEM: Alert and oriented -1. No focal deficits, tone is normal in all 4 extremities. - Labs CBC & Chem 7: 08/10/20 04:23 08/10/20 04:23 Labs: Abnormal Lab Results - Last 24 Hours (Table) 08/09/20 08/10/20 08/10/20 Range/Units 15:15 04:23 04:23 RBC 3.39 L (3.80-5.40) m/uL Hgb 9.6 L (11.4-16.0) gm/dL Hct 30.7 L (34.0-46.0) % RDW 16.2 H (11.5-15.5) % Lymphocytes # 0.9 L (1.0-4.8) k/uL Sodium 136 L 136 L (137-145) mmol/L Potassium 3.4 L (3.5-5.1) mmol/L Chloride 92 L (98-107) mmol/L Carbon Dioxide 38 H (22-30) mmol/L Creatinine 0.41 L (0.52-1.04) mg/dL Glucose 146 H (74-99) mg/dL Calcium 8.1 L (8.4-10.2) mg/dL Alkaline Phosphatase 153 H (38-126) U/L Albumin 3.1 L (3.5-5.0) g/dL Microbiology - Last 24 Hours (Table) 08/04/20 18:15 Blood Culture - Preliminary Blood No Growth after 120 hours Assessment and Plan Plan: Assessment: #1. Acute hypoxic respiratory failure related to possibility of bibasilar pneumonia, strongly suspect aspiration pneumonia. #2. 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 Malpositioning of the PEG tube, status post surgical replacement of the PEG tube #4. Hyponatremia, likely hypovolemic, improved, patient is status post hypertonic saline infusion, which has improved serum sodium and hypertonic saline has been discontinued. Sodium is improving, and it's up to 132 on today's labs, she has been receiving intermittent doses of Lasix #5. Hypothyroidism, levothyroxine #6. Nothing by mouth status, related to malpositioning of the PEG tube, has been restarted on tube feedings on 08/09/2020, so far tolerating them well, on Jevity 1.5 and a rate of 40 with a goal of 40 #7. Suspect chronic cognitive impairment #8. Chronic A. fib, controlled, we'll discontinue Cardizem and amiodarone, patient is on chronic anticoagulation in the form of Eliquis Plan: The chest x-ray has been reviewed, showing stable findings of bibasilar atelectasis, and small pleural effusions, we'll give the patient diuretics with Lasix 40 mg twice daily, we'll stop the clindamycin, continue on cefepime, continue breathing treatments, and continue aspiration precautions, follow blood work in the morning, follow-up chest x-ray in the morning. I performed a history & physical examination of the patient and discussed their management with my nurse practitioner, Hollie Cornelius. I reviewed the nurse practitioner's note and agree with the documented findings and plan of care. Lung sounds are positive for diminished breath sounds. The findings and the impression was discussed with the patient. I attest to the documentation by the nurse practitioner. Time with Patient: Less than 30
[2020-08-10] MEDS: APIXABAN 5 MG TAB PO SCH ×2 (09:09→19:46)
[2020-08-10] MEDS: MAGNESIUM OXIDE 400 MG TAB PO SCH ×2 (09:09→19:46)
[2020-08-10] MEDS: AMIODARONE 200 MG TAB PO SCH (09:09)
[2020-08-10] MEDS: FUROSEMIDE 10 MG/ML 4 ML VIAL IV SCH ×2 (09:09→19:46)
[2020-08-10] MEDS: CEFEPIME 1 GM in SODIUM CHLORIDE 0.9% 50 ML IVPB SCH ×2 (09:10→19:45)
[2020-08-10] MEDS: METOPROLOL TARTRATE 25 MG TAB PO SCH ×2 (09:10→19:46)
[2020-08-10] MEDS: ASPIRIN 81 MG PO SCH (09:10)
[2020-08-10] MEDS: FAMOTIDINE 20 MG TAB PO SCH ×2 (09:10→19:45)
[2020-08-10] MEDS: FLUDROCORTISONE 0.1 MG TAB PO SCH (09:31)
--- NOTE | 2020-08-10 10:50 | P.PN ---
Subjective Progress Note Date: 08/10/20 CHIEF COMPLAINT: Malnutrition HISTORY OF PRESENT ILLNESS: Patient is awake and sitting up in bed. Patient has a PEG tube the CAT scan shows a PEG tip eroded into the anterior abdominal wall. Patient has had PEG tube removed and exchanged. She is currently tolerating her tube feedings. She's currently at 40 mL per hour. Patient afebrile. PHYSICAL EXAM: VITAL SIGNS: Reviewed. GENERAL: Well-developed in no acute distress. HEENT: No sclera icterus. Extraocular movements grossly intact. Moist buccal mucosa. Head is atraumatic, normocephalic. ABDOMEN: Soft. Nondistended. Nontender. Colostomy in left upper quadrant. PEG tube site in clean dry and intact. PEG tube in epigastric area. NEUROLOGIC: Alert and oriented. Cranial nerves II through XII grossly intact. ASSESSMENT: 1. Moderate protein calorie malnutrition status post PEG tube removal and exchange PLAN: -Continue tube feedings -Continue supportive care Physician Lock Stitch Channeler note has been reviewed by physician. Signing provider agrees with the documented findings, assessment, and plan of care. Objective - Vital Signs Vital signs: Vital Signs Temp 98.6 F 08/10/20 04:00 Pulse 67 08/10/20 10:00 Resp 27 H 08/10/20 10:00 BP 137/62 08/10/20 10:00 Pulse Ox 98 08/10/20 10:00 Intake & Output 08/09/20 08/10/20 08/10/20 18:59 06:59 18:59 Intake Total 810 610 300 Output Total 1700 305 555 Balance -890 305 -255 Weight 78.6 kg Intake: IV 210 130 80 0.9 110 130 30 Cefepime 1 gm In Sodium 50 50 Chloride 0.9% 50 ml @ 12. 5 mls/hr IVPB Q12H DARYL Rx #:[id number] Clindamycin 300 mg In 50 Dextrose 5% in Water 50 ml @ 50 mls/hr IVPB Q8HR DARYL Rx#:[id number] Intake, IV Titration 50 100 Amount Clindamycin 300 mg In 50 Dextrose 5% in Water 50 ml @ 50 mls/hr IVPB Q8HR DARYL Rx#:[id number] Magnesium Sulfate-D5w Pmx 100 1 gm In Dextrose/Water 1 100ml.bag @ 100 mls/hr IVPB Q1H DARYL Rx#: [id number] Tube Feeding 520 480 120 Other 30 Output: Urine 1700 305 555 Other: Voiding Method Indwelling Catheter Indwelling Catheter Indwelling Catheter - Labs CBC & Chem 7: 08/10/20 04:23 08/10/20 04:23 Labs: Abnormal Lab Results - Last 24 Hours (Table) 08/09/20 08/10/20 08/10/20 Range/Units 15:15 04:23 04:23 RBC 3.39 L (3.80-5.40) m/uL Hgb 9.6 L (11.4-16.0) gm/dL Hct 30.7 L (34.0-46.0) % RDW 16.2 H (11.5-15.5) % Lymphocytes # 0.9 L (1.0-4.8) k/uL Sodium 136 L 136 L (137-145) mmol/L Potassium 3.4 L (3.5-5.1) mmol/L Chloride 92 L (98-107) mmol/L Carbon Dioxide 38 H (22-30) mmol/L Creatinine 0.41 L (0.52-1.04) mg/dL Glucose 146 H (74-99) mg/dL Calcium 8.1 L (8.4-10.2) mg/dL Alkaline Phosphatase 153 H (38-126) U/L Albumin 3.1 L (3.5-5.0) g/dL Microbiology - Last 24 Hours (Table) 08/04/20 18:15 Blood Culture - Preliminary Blood No Growth after 120 hours
[2020-08-10 10:53] VITALS: BMI 31.6
--- NOTE | 2020-08-10 11:29 | PN ---
PROGRESS NOTE Patient is seen for followup for hyponatremia which has corrected. Patient is currently hypervolemic. She is also maintained on IV Lasix. Tube feeds have been restarted, free water was started yesterday to avoid rapid increase in her serum sodium level. This morning patient is comfortable. Blood pressure is 137/62, heart rate 67 per minute, she is afebrile. Examination of the heart S1, S2. Examination of the lungs, bilateral breath sounds are heard. Abdomen is soft, nontender. Examination of lower extremities shows no significant edema. There are contractures upper and lower extremities. BUSINESS APPLICATIONS MANAGER exam, patient does not move her extremities much, contractures are noted upper and lower extremities. LABS: Show sodium 136, potassium 3.4, chloride 92, CO2 is 38, BUN 14, creatinine 0.41, hemoglobin 9.6. ASSESSMENT: 1. Hyponatremia, currently hypervolemic, maintained on IV Lasix status post one dose of Samsca as well with significant improvement in her sodium, now staying at about 136. Continue with small amount of free water down the feeding tube along with the Lasix for now. 2. Hypokalemia secondary to diuresis, will replace. 3. History of cerebral palsy with the patient being mentally challenged. 4. Bilateral pneumonia, maintained on antibiotics. 5. Acute hypoxic respiratory failure, initially on BiPAP, currently improved. 6. Malpositioned PEG tube, status post surgical replacement. 7. Chronic atrial fibrillation, rate is controlled. PLAN: Continue with the IV Lasix. Repeat labs in a.m. Continue free water 100 mL q.12 hours down the feeding tube for now. MMODL / IJN: [id number] /
[2020-08-10] MEDS: CLINDAMYCIN 300 MG in DEXTROSE 5% IN WATER 50 ML IVPB SCH ×2 (19:34)
--- NOTE | 2020-08-10 21:30 | P.PN ---
Progress Note - Text Progress Note Date: 08/10/20 presenting complaint: Short of breath Interval history: Patient is a 70-year-old female with a history of cerebral palsy with G-tube placement, functional quadriplegia, seizure disorder, hypothyroidism, and GERD who presented from her [facility] facility in [place] to the emergency room due to shortness of breath. In the emergency department she underwent an extensive evaluation. She underwent a CT chest/abdomen/pelvis was found to have pulmonary atelectasis and infilraes with elevated diaphragms, and a malposition gastrostomy tube. EKG showed NSR at 68. Lab evaluation showed a sodium of 115, potassium 5.5, chloride 78, BUN 20, creatinine 0.39, magnesium 1.5 , hemoglobin 10.6, TSH 10.8 with free T4 of 1.54. She was admitted to the ICU secondary to her severe hyponatremia. She ultimately was started on 3% saline by nephrology. She was monitored closely. Her PEG tube was reinserted into the stomach by emergency department staff. She is felt to likely have pneumonia and she was also started on cefepime for possible aspiration. Her Covid 19 test came back negative. She was seen by pulmonary and was placed on BiPAP. Clindamycin was added. On 07/06 patient's PEG tube was removed at bedside with gentle traction and a 16-[place] Pelletier catheter was inserted into the stomach with inflation of the balloon. Her oxygenation continued to improve and by 07/06 she was weaned to 2 L nasal cannula. She did develop some signs of fluid overload. She was started on Lasix. She also required Samsca to help with her hyponatremia. While she was nothing by mouth she developed atrial fibrillation with rapid ventricular response and required IV amiodarone and Cardizem as well as a heparin drip. Once her PEG tube was reinserted she was resumed on her home oral amiodarone and Lopressor. She continued to slowly improve. After second dose of Samsca her sodium came up to 132. [id number] 2 feeding at 40 mL an hour. Nasal cannula 2 L. Patient follows commands. Review of system could not be done because patient unable to communicate well. Active Medications Albuterol/Ipratropium (Ipratropium-Albuterol 3 Ml Neb) 3 ml INHALATION RT-QID DARYL Last Admin: 08/10/20 18:53 Dose: 3 ml Documented by: Amiodarone HCl (Amiodarone 200 Mg Tab) 200 mg PO DAILY [facility] Last Admin: 08/10/20 09:09 Dose: 200 mg Documented by: Apixaban (Apixaban 5 Mg Tab) 5 mg PO BID [facility] Last Admin: 08/10/20 19:46 Dose: 5 mg Documented by: Aspirin (Aspirin 81 Mg) 81 mg PO DAILY [facility] Last Admin: 08/10/20 09:10 Dose: 81 mg Documented by: Clotrimazole (Clotrimazole 1% Cream 15 Gm Tube) 1 applic TOPICAL BID PRN PRN Reason: Rash Famotidine (Famotidine 20 Mg Tab) 20 mg PO BID [facility] Last Admin: 08/10/20 19:45 Dose: 20 mg Documented by: Fludrocortisone Acetate (Fludrocortisone 0.1 Mg Tab) 0.1 mg PO DAILY [facility] Last Admin: 08/10/20 09:31 Dose: 0.1 mg Documented by: Furosemide (Furosemide 10 Mg/Ml 4 Ml Vial) 40 mg IV Q12HR [facility] Last Admin: 08/10/20 19:46 Dose: 40 mg Documented by: Cefepime HCl 1 gm/ Sodium (Chloride) 50 mls @ 12.5 mls/hr IVPB Q12H [facility] Last Admin: 08/10/20 19:45 Dose: 12.5 mls/hr Documented by: Levothyroxine Sodium (Levothyroxine 125 Mcg Tab) 125 mcg PO DAILY@0630 [facility] Last Admin: 08/10/20 06:56 Dose: 125 mcg Documented by: Magnesium Oxide (Magnesium Oxide 400 Mg Tab) 400 mg PO BID [facility] Last Admin: 08/10/20 19:46 Dose: 400 mg Documented by: Metoprolol Tartrate (Metoprolol Tartrate 25 Mg Tab) 75 mg PO BID [facility] Last Admin: 08/10/20 19:46 Dose: 75 mg Documented by: Miscellaneous Information (Potassium Replacement Protocol 1 Each Misc) 1 each MISCELLANE DAILY PRN; Protocol PRN Reason: Per Protocol Miscellaneous Information (Magnesium Replacement Protocol 1 Each Misc) 1 each MISCELLANE DAILY PRN; Protocol PRN Reason: Per Protocol Morphine Sulfate (Morphine Sulfate 2 Mg/Ml Syringe) 2 mg IV Q4H PRN PRN Reason: Pain Scale 4 to 5 Last Admin: 08/06/20 14:01 Dose: 2 mg Documented by: Naloxone HCl (Naloxone 0.4 Mg/Ml 1 Ml Vial) 0.2 mg IV Q2M PRN PRN Reason: Opioid Reversal On examination: VITAL SIGNS: [98.6, 75, 22, 1 36 x 58, 94% on 2 L] GENERAL APPEARANCE:BMI 31.7, reclining in bed tired awake EYES: Pupils equal. Conjunctiva normal. NECK: JVDunable to assess Mass not palpable. RESPIRATORY: Respiratory effort increase Lungs decreased breath sounds CARDIOVASCULAR: First and second sounds normal. No edema. ABDOMEN: Soft. Liver and spleen not palpable. No tenderness. No mass palpable. PEG tube. 2 feeding PSYCHIATRY: just follows some commands NEUROLOGICAL:all 4 limbs contracted INVESTIGATIONS, reviewed in the clinical context: white count 4.7 hemoglobin 9.6 platelets 254 potassium 3.4 creatinine 0.41 pro- calcitonin 0.15 checks x-ray from today-primary changes present. Previous testing: Osteopenia, mild compression deformity of multiple lumbar and lower thoracic vertebra, significant elevation of diaphragm possibly from poor inspiration, bilateral pulmonary atelectasis infiltrate.neck 2 almost all set the stomach. assessmentand plan: Left lower lobe pneumonia, possible aspiration versus gram-negative, -Continue with cefepime D #6 and clindamycin D #7 - follow CXR - Pulm hygeine -COVID 19 negative Acute hypoxic respiratory fialure - improving - wean O2 as able Hyponatremia, now hypervolemia - Samsca X 2, Lasix due to fluid overload again - repat sodium in AM,follow closely due to change of 10 in 24 hours. - follow sodium - nephro recs Malpositioned PEG tube - replaced and appears working correctly - tube feedings at goal, free water decreased by nephro. persistent A fib with RVR, now bradycardiac - off IV amiodaron and cardizem - oral amio, lopressor - Eliquis Cerebral palasy with functional quadraplegia, advanced cognitive impairment - supportive care Hypothyroidism - Levothyroxine Hypomagnesemia, resolved Chronic thoracolumbar vertebra collapse Chronic medical debility
[2020-08-11 05:56] LABS: Basophils # (A) 0.1 k/uL (0-0.2); Basophils % (A) 2 %; Eosinophils # (A) 0.1 k/uL (0-0.7); Eosinophils % (A) 1 %; HCT 30.2 % (34.0-46.0); HGB 9.8 gm/dL (11.4-16.0); Hypochromasia Slight; Lymphocytes # (A) 1.2 k/uL (1.0-4.8); Lymphocytes % (A) 21 %; MCH 29.2 pg (25.0-35.0); MCHC 32.6 g/dL (31.0-37.0); MCV 89.4 fL (80.0-100.0); Monocytes # (A) 0.3 k/uL (0-1.0); Monocytes % (A) 6 %; Neutrophils % (A) 68 %; Platelet Count 222 k/uL (150-450); RBC 3.37 m/uL (3.80-5.40); RDW 15.9 % (11.5-15.5); WBC 5.8 k/uL (3.8-10.6)
[2020-08-11 06:07] LABS: ALT 20 U/L (4-34); AST 34 U/L (14-36); African American GFR (CKD) >90 (>60 ml/min/1.73 sqM); Albumin 3.1 g/dL (3.5-5.0); Alkaline Phosphatase 141 U/L (38-126); Blood Urea Nitrogen 16 mg/dL (7-17); Calcium 8.2 mg/dL (8.4-10.2); Chloride 86 mmol/L (98-107); Glucose 152 mg/dL (74-99); Magnesium 1.8 mg/dL (1.6-2.3); Non-African American GFR(CKD) >90 (>60 ml/min/1.73 sqM); Potassium 3.8 mmol/L (3.5-5.1); Sodium 134 mmol/L (137-145); Total Bilirubin 0.5 mg/dL (0.2-1.3); Total Protein 6.3 g/dL (6.3-8.2)
[2020-08-11 06:13] LABS: Anion Gap 5 mmol/L
[2020-08-11 06:17] LABS: Carbon Dioxide 43 mmol/L (22-30)
[2020-08-11] MEDS: MAGNESIUM SULFATE-D5W PMX 1 GM in DEXTROSE/WATER 1 100ML.BAG IVPB SCH ×2 (06:53→10:13)
[2020-08-11] MEDS: LEVOTHYROXINE 125 MCG TAB PO SCH (06:53)
[2020-08-11] MEDS ORDERED: POTASSIUM BICARBONATE/CIT AC 20 MEQ TABLET.EFF NG-TUBE SCH (07:00)
[2020-08-11] MEDS: IPRATROPIUM-ALBUTEROL 3 ML NEB INHALATION SCH ×4 (07:56→19:18)
--- NOTE | 2020-08-11 08:35 | XR ---
EXAMINATION TYPE: XR chest 1V portable DATE OF EXAM: 08/11/2020 COMPARISON: 08/10/2020 HISTORY: Shortness of breath TECHNIQUE: Single frontal view of the chest is obtained. FINDINGS: There is limited inspiration. Basilar consolidation and small effusion are stable. No obvi ous pneumothorax. Heart size stable. Contrast within the colon noted and there is a significant scoli otic curvature IMPRESSION: Bilateral consolidation and pleural effusion are stable. Severely limited exam due to re duced inspiration. Could been the basis of a pneumonia correlate clinically to exclude CHF.
[2020-08-11] MEDS: CEFEPIME 1 GM in SODIUM CHLORIDE 0.9% 50 ML IVPB SCH ×2 (10:12→23:52)
[2020-08-11] MEDS: MAGNESIUM OXIDE 400 MG TAB PO SCH ×2 (10:14→20:42)
[2020-08-11] MEDS: FAMOTIDINE 20 MG TAB PO SCH ×2 (10:14→20:41)
[2020-08-11] MEDS: METOPROLOL TARTRATE 25 MG TAB PO SCH ×2 (10:14→20:42)
[2020-08-11] MEDS: APIXABAN 5 MG TAB PO SCH ×2 (10:15→20:42)
[2020-08-11] MEDS: AMIODARONE 200 MG TAB PO SCH (10:15)
[2020-08-11] MEDS: FUROSEMIDE 10 MG/ML 4 ML VIAL IV SCH ×2 (10:15→10:16)
[2020-08-11] MEDS: ASPIRIN 81 MG PO SCH (10:15)
--- NOTE | 2020-08-11 10:19 | P.PN ---
Subjective Progress Note Date: 08/11/20 Principal diagnosis: Acute bibasilar pneumonia possible aspiration pneumonia This is a 70-year-old female with history of multiple medical problems, patient is paraplegic, known history of cerebral palsy, resides at [facility] in [place]. Patient was sent to the ER mostly because she was noted to have shortness of breath, and noted to have in respiratory distress at the alf. Patient was sent to the ER, and she had multiple abnormal findings including abnormal chest x-ray showing bibasilar atelectasis/infiltrates. Abnormal CT of the abdomen and pelvis confirming the same, abnormal electrolytes with low sodium of 1:15 and elevated potassium of 5 .5. Abnormal TSH. Patient had a chronic indwelling PEG tube, and she had a colostomy in place. The patient is nonverbal, considering the multiple abnormalities noted patient was admitted to the ICU, and I was asked to see her on consultation. Upon my initial evaluation, the patient was noted to be in respiratory distress, seems to be working hard to take a deep breath. She was on a Ventimask, and I recommended switching the Ventimask to a BiPAP with IPAP of 12 and EPAP of 6, and FiO2 of 40%. As soon as the patient was placed on BiPAP, there was clearly evidence of improvement in her respiratory status and was not working as hard to breathe. Hence kept on BiPAP. Reviewed her chest x-ray patient may have paralyzed diaphragms since they seem to be extremely elevated on both sides. Patient may also have aspiration pneumonia although the patient is nothing by mouth, and she has a PEG tube in place used for nutritional support. Hence I recommended broadening the spectrum of coverage with antibiotics, added clindamycin to her cefepime. Patient has multiple ALLERGIES including ALLERGY to penicillin. In the ER, patient was given IV fluids in the form of 0.9 normal saline, she was noted to be clinically dehydrated, repeat sodium in the ICU came up to 117 from 115 on admission. And her potassium came down to 4.9 from 5.9. PCR for covid 19 came back negative. Patient was reevaluated today on 08/06/20, remains in the ICU, sitting in bed, seems to be fairly comfortable. However the patient is in atrial fibrillation, poorly controlled, rate is 114 this morning, and considering the patient had all her medications on hold orally, she is now on Cardizem drip for atrial fibri llation. She is hemodynamically stable, blood pressure is 115/53, and her O2 saturation is 100%, on 4 L nasal cannula. Sodium remains low at 118 and she is now on 3% saline at 20 mL per hour ordered by nephrology on the case. Patient was seen by general surgery, her PEG tube was removed at the bedside, and a 16- [place]er Pelletier catheter was placed in the tract and position of the stomach the balloon was inflated with 10 mL of saline and the patient is to have x-rays to confirm position of the feeding tube. Follow-up x-ray showed adequate placement of the PEG tube and seems to be appropriately placed. Hence we will likely start feeding tomorrow. In the meantime the patient could be given her oral medications via PEG tube, and no need for a nasogastric tube. WBC count today is 4.7 hemoglobin is 9.1. Sodium went up today from 118-122. And her renal functioning seems to be normal. Bicarb is 28. Pro-calcitonin is 0.10, seems to be negligible. Follow-up chest x-ray showed again low lung volumes and elevated diaphragms, patient continues to have perihilar and basilar infiltrate/atel ectasis. On 08/07/2020 patient seen in follow-up in the intensive care unit, she is awake, she is confused, she is disoriented to place and time. Her speech is garbled. The patient seems to be in no acute distress. This morning she is on 2 L of oxygen, her pulse ox is 96-98%, patient is afebrile. Today's chest x-ray has been reviewed showing no significant change compared to the prior exam, b asilar effusions, pneumonia, atelectasis. A stability of fluid volume overload not excluded. Patient is currently in sinus mechanism, with a controlled rate, she remains on Cardizem infusion at 10 mg per hour, 0.9 normal saline at a rate of 10 mL per hour. Patient has not been able to receive any of her oral medications related to purulent drainage around the PEG tube site insertion. Surgical services are following. PEG tube position was adjusted by general surgery, abdominal x-ray showed PEG tube appropriately placed. However on this morning's exam there is still some purulent drainage from around the PEG tube site insertion. No feedings have been initiated as of yet. Today's labs have been reviewed, showing white blood cell count of 4.5, hemoglobin of 8.3, serum sodium is 123, potassium is 4.5, chloride is 91, BUN is 10 and creatinine 0.31, proBNP came back at 1250. Lung sounds are diminished at the bases, no major rhonchi or wheezing. Nephrology is following and managing the serum sodium which is up to 123 on today's labs, antibiotic coverage in the form of cefepime and clindamycin. Cultures have been negative to date. On 08/08/2020 patient seen in follow-up in intensive care unit, she is resting comfortably in bed, appears to be in no acute distress, remains on 2 L of oxygen, the pulse ox of 98%, hemodynamically patient is stable, not on any vasopressors, A. fib is currently controlled, and actually bradycardic with a rate of 58 BPM, she remains on Cardizem at 10 mg per hour, and amiodarone 0.5 mg/m, heparin drip at weight-based protocol, and IV maintenance fluids of 0.9 normal saline at a rate of KVO. Chest x-ray shows stable exam with markedly limited inspiration and bilateral consolidation and pleural effusions. No fever overnight, no leukocytosis, white blood cell count is 4.8, hemoglobin of 9.1, sodium is 122, stable, down from 123, potassium 3.7, chloride is 88, CO2 is 21, pO2 disease creatinine 0.34. Patient her PEG tube replaced by surgery, there is a small amount of yellowish drainage, which appears to be more seriously on today's exam rather than purulent as it was yesterday, remains on antibiotic clindamycin, cefepime, ID service is following, but cultures have been negative. Does not appear to be in any shortness of breath, breathing comfortably, she is awake and alert, she is watching cartoons on TV. On 08/09/2020 patient seen in follow-up in intensive care unit, she is awake and alert, appears to be in no distress, she is currently on 2 L of oxygen, pulse ox of 100%, hemodynamics is stable, she is afebrile, lung sounds reveal diminished breath sounds at the bases, and bibasilar crackles, today's chest x-ray has been reviewed showing probable subsegmental basilar atelectatic changes, and possible pleural effusions. Patient will receive a dose of IV Lasix today, hemodynamically stable, not on any vasopressors, she is just on 0.9 normal saline at a rate of 10 ML per hour, no other drips. No fever or chills, but culture has been negative were 96 hours. She has been receiving intermittent doses of IV Lasix, she is in -1.8 L over last 24 hours, has a mild bipedal edema, mild pretibial edema. She has been restarted on tube feedings yesterday, she is on Jevity 1.5 at 40 mL an hour, tolerating tube feedings well. On 08/10/2020 patient seen in follow-up in the intensive care unit, she is awake, she doesn't attempt to respond today, she is being quiet. Doesn't appear to be in any acute distress. Yesterday chest x-ray showed possible pleural effusions, and subsegmental basilar atelectatic changes, in addition patient has had the lower extremity edema, consistent with fluid volume overload, patient was given a dose of IV Lasix yesterday, he has made almost 3 L of urine output, and she is in -1.8 L over last 24 hours, today's exam patient does not appear to be in any respiratory distress, lung sounds revealed diminished breath sounds with dullness at bilateral bases, and bibasilar crackles. Still has lower extremity edema, may be slightly improved, her weight is down by 1.1 kg in the last 24 hours. She is tolerating tube feedings, receiving Jevity 1.5 at 40, with a goal of 40, no nausea vomiting or diarrhea, she is 0.9 normal saline at 10 ML per hour, she remains on 2 L of oxygen, with a pulse ox of 97%. Today's chest x-ray shows stable findings of bibasilar atelectatic changes, and small pleural effusions. Patient has been afebrile, she had a cough, or phlegm production. She remains on antibiotics, in the form of cefepime, clindamycin, cultures have been negative. On 08/11/2020 patient seen in follow-up in the intensive care unit, she is awake, and alert, she is nonverbal, does not appear to be in any acute distress, she is currently on 2 L of oxygen with a pulse ox of 97%, patient has been afebrile, lung sounds reveal some bibasilar crackles. Today we put her on maintenance dose of Lasix 40 mg twice daily, she is in -1.5 L fluid balance over last 24 hours, today's chest x-ray reviewed, showing bilateral consolidation and pleural effusion is relatively stable in appearance the exam is limited related to reduced inspiration. Today's labs have been reviewed, white blood cell count of 5.8, hemoglobin of 9.8, sodium is 134, potassium is 3.8, chloride is 86, CO2 was 43 likely related to volume contraction alkalosis, BUN is 16 and creatinine 0.35, no respiratory distress, no cough, congestion. Her follow-up pro- calcitonin can back the increased from previous at 0.15, up from 0.110 on 08/05/2020. Patient remains on antibiotics yesterday we simplified and, in the currently just on cefepime, discontinue clindamycin. No fever chills, she is tolerating tube feedings, no nausea vomiting or diarrhea. Objective - Vital Signs Vital signs: Vital Signs Temp 98.8 F 08/11/20 04:00 Pulse 80 08/11/20 08:12 Resp 20 08/11/20 07:00 BP 123/57 08/11/20 07:00 Pulse Ox 97 08/11/20 08:25 Intake & Output 08/10/20 08/11/20 08/11/20 18:59 06:59 18:59 Intake Total 860 600 50 Output Total 1805 1215 45 Balance -945 -615 5 Weight 78.6 kg 76.5 kg Intake: IV 160 120 10 0.9 110 120 10 Cefepime 1 gm In Sodium 50 Chloride 0.9% 50 ml @ 12. 5 mls/hr IVPB Q12H DARYL Rx #:[id number] Intake, IV Titration 100 Amount Magnesium Sulfate-D5w Pmx 100 1 gm In Dextrose/Water 1 100ml.bag @ 100 mls/hr IVPB Q1H DARYL Rx#: [id number] Tube Feeding 440 480 40 Other 160 Output: Urine 1805 1215 45 Other: Voiding Method Indwelling Catheter Indwelling Catheter Indwelling Catheter - Exam GENERAL EXAM: Alert, 62-year-old white female, suspect underlying neurocognitive disorder, and chronic cognitive impairment, confused, only oriented to self, disoriented to person and time, 2 L of oxygen a pulse ox of 97% comfortable in no apparent distress. HEAD: Normocephalic/atraumatic. EYES: Normal reaction of pupils, equal size. Conjunctiva pink, sclera white. NOSE: Clear with pink turbinates. THROAT: No erythema or exudates. NECK: No masses, no JVD, no thyroid enlargement, no adenopathy. CHEST: No chest wall deformity. Symmetrical expansion. LUNGS: Equal air entry with no crackles, wheeze, rhonchi or dullness. CVS: Regular rate and rhythm, normal S1 and S2, no gallops, no murmurs, no rubs ABDOMEN: Soft, nontender. No hepatosplenomegaly, normal bowel sounds, no guarding or rigidity. Active in place, with tube feedings infusing, with the Jevity 1.5 at rate of 40 ML per hour EXTREMITIES: No clubbing, mild 1+ lower extremity edema, no cyanosis, 2+ pulses and upper and lower extremities. MUSCULOSKELETAL: Spasticity of lower extremities noted, patient has chronic contractures involving bilateral hands and lower extremities SPINE: No scoliosis or deformity SKIN: No rashes CENTRAL NERVOUS SYSTEM: Alert and oriented -1. No focal deficits, tone is normal in all 4 extremities. - Labs CBC & Chem 7: 08/11/20 05:32 08/11/20 05:32 Labs: Abnormal Lab Results - Last 24 Hours (Table) 08/10/20 08/11/20 08/11/20 Range/Units 04:52 05:32 05:32 RBC 3.37 L (3.80-5.40) m/uL Hgb 9.8 L (11.4-16.0) gm/dL Hct 30.2 L (34.0-46.0) % RDW 15.9 H (11.5-15.5) % Sodium 134 L (137-145) mmol/L Chloride 86 L (98-107) mmol/L Carbon Dioxide 43 H* (22-30) mmol/L Creatinine 0.35 L (0.52-1.04) mg/dL Glucose 152 H (74-99) mg/dL Calcium 8.2 L (8.4-10.2) mg/dL Alkaline Phosphatase 141 H (38-126) U/L Albumin 3.1 L (3.5-5.0) g/dL Procalcitonin 0.15 H (0.02-0.09) ng/mL Microbiology - Last 24 Hours (Table) 08/04/20 18:15 Blood Culture - Final Blood No Growth after 144 hours Assessment and Plan Plan: Assessment: #1. Acute hypoxic respiratory failure related to possibility of bibasilar pneumonia, strongly suspect aspiration pneumonia. Chest x-ray also shows small dural effusions, and cephalization, increased interstitium consistent with fluid overload #2. 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 Malpositioning of the PEG tube, status post surgical replacement of the PEG tube #4. Hyponatremia, likely hypovolemic, improved, patient is status post hypertonic saline infusion, which has improved serum sodium and hypertonic saline has been discontinued. Sodium is improving, and it's up to 132 on today's labs, she has been receiving intermittent doses of Lasix #5. Hypothyroidism, levothyroxine #6. Nothing by mouth status, related to malpositioning of the PEG tube, has been restarted on tube feedings on 08/09/2020, so far tolerating them well, on Jevity 1.5 and a rate of 40 with a goal of 40 #7. Suspect chronic cognitive impairment #8. Chronic A. fib, controlled, we'll discontinue Cardizem and amiodarone, patient is on chronic anticoagulation in the form of Eliquis Plan: We'll cut back IV Lasix to once daily, breathing is comfortable, continue current antibiotics, vital signs have been stable, no acute events overnight, tolerating tube feedings, today's chest x-ray has been noted, showing relatively stable findings with the possible slight improvement in the appearance of interstitial pattern upper lobes. Patient is stable for transfer out of intensive care unit to general medical surgical floor without telemetry. I performed a history & physical examination of the patient and discussed their management with my nurse practitioner, Hollie Cornelius. I reviewed the nurse practitioner's note and agree with the documented findings and plan of care. Lung sounds are positive for diminished breath sounds. The findings and the impression was discussed with the patient. I attest to the documentation by the nurse practitioner. Time with Patient: Less than 30
--- NOTE | 2020-08-11 10:37 | P.PN ---
Subjective Progress Note Date: 08/11/20 CHIEF COMPLAINT: Malnutrition HISTORY OF PRESENT ILLNESS: Patient is awake and sitting up in bed. Patient has a PEG tube the CAT scan shows a PEG tip eroded into the anterior abdominal wall. Patient has had PEG tube removed and exchanged. She is currently tolerating her tube feedings. She's currently at 40 mL per hour. Patient afebrile. WBC 5.8 patient started on IV Lasix per pulmonary service for fluid overload PHYSICAL EXAM: VITAL SIGNS: Reviewed. GENERAL: Well-developed in no acute distress. HEENT: No sclera icterus. Extraocular movements grossly intact. Moist buccal mucosa. Head is atraumatic, normocephalic. ABDOMEN: Soft. Nondistended. Nontender. Colostomy in left upper quadrant. PEG tube site in clean dry and intact. PEG tube in epigastric area. NEUROLOGIC: Nonverbal. Cranial nerves II through XII grossly intact. ASSESSMENT: 1. Moderate protein calorie malnutrition status post PEG tube removal and exchange PLAN: -Continue tube feedings -Continue supportive care Physician Crime Data Specialist note has been reviewed by physician. Signing provider agrees with the documented findings, assessment, and plan of care. Objective - Vital Signs Vital signs: Vital Signs Temp 98.0 F 08/11/20 08:00 Pulse 86 08/11/20 10:00 Resp 30 H 08/11/20 10:00 BP 118/54 08/11/20 10:00 Pulse Ox 100 08/11/20 10:00 Intake & Output 08/10/20 08/11/20 08/11/20 18:59 06:59 18:59 Intake Total 860 600 300 Output Total 1805 1215 245 Balance -945 -615 55 Weight 78.6 kg 76.5 kg Intake: IV 160 120 40 0.9 110 120 40 Cefepime 1 gm In Sodium 50 Chloride 0.9% 50 ml @ 12. 5 mls/hr IVPB Q12H DARYL Rx #:[id number] Intake, IV Titration 100 Amount Magnesium Sulfate-D5w Pmx 100 1 gm In Dextrose/Water 1 100ml.bag @ 100 mls/hr IVPB Q1H DARYL Rx#: [id number] Tube Feeding 440 480 160 Other 160 100 Output: Urine 1805 1215 245 Other: Voiding Method Indwelling Catheter Indwelling Catheter Indwelling Catheter - Labs CBC & Chem 7: 08/11/20 05:32 08/11/20 05:32 Labs: Abnormal Lab Results - Last 24 Hours (Table) 08/10/20 08/11/20 08/11/20 Range/Units 04:52 05:32 05:32 RBC 3.37 L (3.80-5.40) m/uL Hgb 9.8 L (11.4-16.0) gm/dL Hct 30.2 L (34.0-46.0) % RDW 15.9 H (11.5-15.5) % Sodium 134 L (137-145) mmol/L Chloride 86 L (98-107) mmol/L Carbon Dioxide 43 H* (22-30) mmol/L Creatinine 0.35 L (0.52-1.04) mg/dL Glucose 152 H (74-99) mg/dL Calcium 8.2 L (8.4-10.2) mg/dL Alkaline Phosphatase 141 H (38-126) U/L Albumin 3.1 L (3.5-5.0) g/dL Procalcitonin 0.15 H (0.02-0.09) ng/mL Microbiology - Last 24 Hours (Table) 08/04/20 18:15 Blood Culture - Final Blood No Growth after 144 hours
--- NOTE | 2020-08-11 12:16 | PN ---
PROGRESS NOTE Patient is seen for followup for hyponatremia. Her serum sodium has improved. Patient is currently hypervolemic and is maintained on IV Lasix. Serum sodium is staying at about 136-134 mEq/L. Patient was admitted to the hospital with shortness of breath and hypoxic respiratory failure secondary to pneumonia. She has cerebral palsy and is mentally challenged. PHYSICAL EXAMINATION: Today patient is comfortable. Denies any significant complaints. Blood pressure is 118/54, heart rate 86 per minute, patient is afebrile. Examination of the heart S1, S2. Examination of the lungs, bilateral breath sounds are heard. Decreased breath sounds at bases. Abdomen is soft, nontender. Examination of lower extremities shows trace edema bilaterally. The patient has contractures upper and lower extremities bilaterally. LABS: Show sodium 134, potassium 3.8, chloride 86, CO2 is 43, BUN 16, serum creatinine 0.35. ASSESSMENT: 1. Hypervolemic hyponatremia, currently improved. Patient was on Florinef prior to admission. This is currently on hold, as patient has been hypervolemic. I will continue with the Lasix but decrease dose to once a day as she has developed metabolic alkalosis. I will also decrease the free water down the feeding tube which was initially restarted to avoid rapid increase in her serum sodium level. 2. Pneumonia. Maintained on antibiotics. Possible aspiration pneumonia. 3. Volume overload, currently improving. 4. Hyperkalemia on initial admission, now resolved. Potassium is actually on the lower side. 5. Malpositioned PEG tube status post surgical replacement. 6. Chronic atrial fibrillation with controlled ventricular response. PLAN: Hold off on the mineralocorticoid for now. Decrease IV Lasix. Repeat labs in a.m. and hold off on the free water down the feeding tube. Replace potassium. MMODL / IJN: [id number] /
--- NOTE | 2020-08-11 12:57 | P.PN ---
Progress Note - Text Progress Note Date: 08/11/20 presenting complaint: Short of breath Interval history: Patient is a 70-year-old female with a history of cerebral palsy with G-tube placement, functional quadriplegia, seizure disorder, hypothyroidism, and GERD who presented from her assisted facility in [place] to the emergency room due to shortness of breath. In the emergency department she underwent an extensive evaluation. She underwent a CT chest/abdomen/pelvis was found to have pulmonary atelectasis and infilraes with elevated diaphragms, and a malposition gastrostomy tube. EKG showed NSR at 68. Lab evaluation showed a sodium of 115, potassium 5.5, chloride 78, BUN 20, creatinine 0.39, magnesium 1.5 , hemoglobin 10.6, TSH 10.8 with free T4 of 1.54. She was admitted to the ICU secondary to her severe hyponatremia. She ultimately was started on 3% saline by nephrology. She was monitored closely. Her PEG tube was reinserted into the stomach by emergency department staff. She is felt to likely have pneumonia and she was also started on cefepime for possible aspiration. Her Covid 19 test came back negative. She was seen by pulmonary and was placed on BiPAP. Clindamycin was added. On 07/06 patient's PEG tube was removed at bedside with gentle traction and a 16-Greek Pelletier catheter was inserted into the stomach with inflation of the balloon. Her oxygenation continued to improve and by 07/06 she was weaned to 2 L nasal cannula. She did develop some signs of fluid overload. She was started on Lasix. She also required Samsca to help with her hyponatremia. While she was nothing by mouth she developed atrial fibrillation with rapid ventricular response and required IV amiodarone and Cardizem as well as a heparin drip. Once her PEG tube was reinserted she was resumed on her home oral amiodarone and Lopressor. She continued to slowly improve. After second dose of Samsca her sodium came up to 132. [id number]. 2 feeding. Following commands. Pulse ox on room air 90-91% Review of system could not be done because patient unable to communicate well. Active Medications Albuterol/Ipratropium (Ipratropium-Albuterol 3 Ml Neb) 3 ml INHALATION RT-QID DARYL Last Admin: 08/11/20 11:06 Dose: 3 ml Documented by: Amiodarone HCl (Amiodarone 200 Mg Tab) 200 mg PO DAILY ON LICENSE OF [facility] Last Admin: 08/11/20 10:15 Dose: 200 mg Documented by: Apixaban (Apixaban 5 Mg Tab) 5 mg PO BID ON LICENSE OF [facility] Last Admin: 08/11/20 10:15 Dose: 5 mg Documented by: Aspirin (Aspirin 81 Mg) 81 mg PO DAILY ON LICENSE OF [facility] Last Admin: 08/11/20 10:15 Dose: 81 mg Documented by: Clotrimazole (Clotrimazole 1% Cream 15 Gm Tube) 1 applic TOPICAL BID PRN PRN Reason: Rash Famotidine (Famotidine 20 Mg Tab) 20 mg PO BID ON LICENSE OF [facility] Last Admin: 08/11/20 10:14 Dose: 20 mg Documented by: Furosemide (Furosemide 10 Mg/Ml 4 Ml Vial) 40 mg IV DAILY ON LICENSE OF [facility] Last Admin: 08/11/20 10:15 Dose: 40 mg Documented by: Cefepime HCl 1 gm/ Sodium (Chloride) 50 mls @ 12.5 mls/hr IVPB Q12H ON LICENSE OF [facility] Last Admin: 08/11/20 10:12 Dose: 12.5 mls/hr Documented by: Levothyroxine Sodium (Levothyroxine 125 Mcg Tab) 125 mcg PO DAILY@0630 ON LICENSE OF [facility] Last Admin: 08/11/20 06:53 Dose: 125 mcg Documented by: Magnesium Oxide (Magnesium Oxide 400 Mg Tab) 400 mg PO BID ON LICENSE OF [facility] Last Admin: 08/11/20 10:14 Dose: 400 mg Documented by: Metoprolol Tartrate (Metoprolol Tartrate 25 Mg Tab) 75 mg PO BID ON LICENSE OF [facility] Last Admin: 08/11/20 10:14 Dose: 75 mg Documented by: Miscellaneous Information (Potassium Replacement Protocol 1 Each Misc) 1 each MISCELLANE DAILY PRN; Protocol PRN Reason: Per Protocol Miscellaneous Information (Magnesium Replacement Protocol 1 Each Mis) 1 each MISCELLANE DAILY PRN; Protocol PRN Reason: Per Protocol Morphine Sulfate (Morphine Sulfate 2 Mg/Ml Syringe) 2 mg IV Q4H PRN PRN Reason: Pain Scale 4 to 5 Last Admin: 08/06/20 14:01 Dose: 2 mg Documented by: Naloxone HCl (Naloxone 0.4 Mg/Ml 1 Ml Vial) 0.2 mg IV Q2M PRN PRN Reason: Opioid Reversal On examination: VITAL SIGNS: 98, 73, 28, 1 24 x 57, 100% on 2 L GENERAL APPEARANCE:BMI 31.7, reclining in bed tired awake EYES: Pupils equal. Conjunctiva normal. NECK: JVD unable to assess Mass not palpable. RESPIRATORY: Respiratory effort increase Lungs decreased breath sounds CARDIOVASCULAR: First and second sounds normal. No edema. ABDOMEN: Soft. Liver and spleen not palpable. No tenderness. No mass palpable. PEG tube- feeding PSYCHIATRY: just follows some commands NEUROLOGICAL:all 4 limbs contracted INVESTIGATIONS, reviewed in the clinical context: White count 5.8 hemoglobin 9.8 platelets 222 potassium 3.8 creatinine 0.35 checks x-ray from today-primary changes present. Previous testing: Osteopenia, mild compression deformity of multiple lumbar and lower thoracic vertebra, significant elevation of diaphragm possibly from poor inspiration, bilateral pulmonary atelectasis infiltrate.neck 2 almost all set the stomach. assessment and plan: Left lower lobe pneumonia, possible aspiration versus gram-negative, -Continue with cefepime, clindamycin - follow CXR - Pulm hygeine -COVID 19 negative Acute hypoxic respiratory fialure-now down to 90-91% on room air Hyponatremia, now hypervolemia - Samsca X 2, Lasix due to fluid overload again - repat sodium in AM,follow closely due to change of 10 in 24 hours. - follow sodium - nephro recs Malpositioned PEG tube - replaced and appears working correctly persistent A fib with RVR, now bradycardiac - oral amio, lopressor - Eliquis Cerebral palasy with functional quadraplegia, advanced cognitive impairment - supportive care Hypothyroidism - Levothyroxine Hypomagnesemia, resolved Chronic thoracolumbar vertebra collapse Chronic medical debility
[2020-08-12] MEDS: LEVOTHYROXINE 125 MCG TAB PO SCH (06:25)
[2020-08-12] MEDS: IPRATROPIUM-ALBUTEROL 3 ML NEB INHALATION SCH ×4 (07:51→22:22)
[2020-08-12] MEDS: MAGNESIUM OXIDE 400 MG TAB PO SCH ×2 (08:45→20:40)
[2020-08-12] MEDS: FUROSEMIDE 10 MG/ML 4 ML VIAL IV SCH (08:46)
[2020-08-12] MEDS: ASPIRIN 81 MG PO SCH (08:46)
[2020-08-12] MEDS: FAMOTIDINE 20 MG TAB PO SCH ×2 (08:46→20:40)
[2020-08-12] MEDS: AMIODARONE 200 MG TAB PO SCH (08:46)
[2020-08-12] MEDS: APIXABAN 5 MG TAB PO SCH ×2 (08:46→20:40)
[2020-08-12] MEDS: METOPROLOL TARTRATE 25 MG TAB PO SCH ×2 (08:46→20:42)
[2020-08-12] MEDS ORDERED: FUROSEMIDE 10 MG/ML 4 ML VIAL IV SCH (09:00)
--- NOTE | 2020-08-12 09:20 | P.PN ---
Subjective Progress Note Date: 08/12/20 Principal diagnosis: Mrs. Chang is a 70-year-old female with cerebral palsy who is [facility]. Admitted to the hospital with shortness of breath. Is difficult to communicate with her. She was seen in consultation because of hyponatremia with serum sodium 115 and admission. Initially it was thought to be congestive heart failure and has been improving with Lasix. In the antrum she has developed significant metabolic alkalosis. Lasix was reduced yesterday. Her bicarb went up from 38-43 this morning. Creatinine is stable at 0.35, BUN is 16. Potassium is 3.8 and sodium is 134 She has a low-grade temperature of 99.4 heart rate in the 70s to 80s and blood pressure in the 120s systolic range. Currently she is being fed via a PEG. She also has a colostomy. Objective - Vital Signs Vital signs: Vital Signs Temp 99.4 F 08/12/20 07:00 Pulse 90 08/12/20 08:01 Resp 19 08/12/20 07:00 BP 121/70 08/12/20 07:00 Pulse Ox 99 08/12/20 07:00 Intake & Output 08/11/20 08/12/20 08/12/20 18:59 06:59 18:59 Intake Total 380 190 Output Total 245 5 Balance 135 -1885 Weight 72.5 kg Intake: IV 40 110 0.9 40 110 Tube Feeding 240 80 Other 100 Output: Urine 245 2075 Other: Voiding Method Indwelling Catheter Indwelling Catheter On examination is awake alert and tries to cooperate but unable to sleep very well. HEENT exam no JVP neck is supple no facial asymmetry Lungs are significant for diminished breath sounds bilaterally but no adventitious sounds Heart sounds are unremarkable for any murmur rub gallop Abdomen is soft colostomy seen Extremity exam reveals no edema She is in a curled position - Labs CBC & Chem 7: 08/11/20 05:32 08/11/20 05:32 Labs: Microbiology - Last 24 Hours (Table) 08/04/20 18:15 Blood Culture - Final Blood No Growth after 144 hours Assessment and Plan Assessment: Impression 1. Hyponatremia secondary to congestive heart failure improved with Lasix. 2. Significant metabolic alkalosis secondary to diuretics, worsening 3. Cerebral palsy 4. Currently in sinus rhythm 5. Colostomy and PEG Recommendation 1. Pending labs today. If bicarbonate worsens was started on Diamox 250 3 times a day for 2 or 3 days with close monitoring of electrolytes.
[2020-08-12] MEDS: CEFEPIME 1 GM in SODIUM CHLORIDE 0.9% 50 ML IVPB SCH ×2 (10:34→20:40)
--- NOTE | 2020-08-12 16:49 | P.PN ---
Subjective Progress Note Date: 08/12/20 Principal diagnosis: Acute bibasilar pneumonia possible aspiration This is a 70-year-old female with history of multiple medical problems, patient is paraplegic, known history of cerebral palsy, resides at [facility] in [place]. Patient was sent to the ER mostly because she was noted to have shortness of breath, and noted to have in respiratory distress at the senior living. Patient was sent to the ER, and she had multiple abnormal findings including abnormal chest x-ray showing bibasilar atelectasis/infiltrates. Abnormal CT of the abdomen and pelvis confirming the same, abnormal electrolytes with low sodium of 1:15 and elevated potassium of 5.5. Abnormal TSH. Patient had a chronic indwelling PEG tube, and she had a colostomy in place. The patient is nonverbal, considering the multiple abnormalities noted patient was admitted to the ICU, and I was asked to see her on consultation. Upon my initial evaluation, the patient was noted to be in respiratory distress, seems to be working hard to take a deep breath. She was on a Ventimask, and I recommended switching the Ventimask to a BiPAP with IPAP of 12 and EPAP of 6, and FiO2 of 40%. As soon as the patient was placed on BiPAP, there was clearly evidence of improvement in her respiratory status and was not working as hard to breathe. Hence kept on BiPAP. Reviewed her chest x- ray patient may have paralyzed diaphragms since they seem to be extremely elevated on both sides. Patient may also have aspiration pneumonia although the patient is nothing by mouth, and she has a PEG tube in place used for nutritional support. Hence I recommended broadening the spectrum of coverage with antibiotics, added clindamycin to her cefepime. Patient has multiple ALLERGIES including ALLERGY to penicillin. In the ER, patient was given IV fluids in the form of 0.9 normal saline, she was noted to be clinically dehydrated, repeat sodium in the ICU came up to 117 from 115 on admission. And her potassium came down to 4.9 from 5.9. PCR for covid 19 came back negative. Patient was reevaluated today on 08/06/20, remains in the ICU, sitting in bed, seems to be fairly comfortable. However the patient is in atrial fibrillation, poorly controlled, rate is 114 this morning, and considering the patient had all her medications on hold orally, she is now on Cardizem drip for atrial fibrillation. She is hemodynamically stable, blood pressure is 115/53, and her O2 saturation is 100%, on 4 L nasal cannula. Sodium remains low at 118 and she is now on 3% saline at 20 mL per hour ordered by nephrology on the case. Patient was seen by general surgery, her PEG tube was removed at the bedside, and a 16-Croatian Pelletier catheter was placed in the tract and position of the stomach the balloon was inflated with 10 mL of saline and the patient is to have x-rays to confirm position of the feeding tube. Follow-up x-ray showed adequate placement of the PEG tube and seems to be appropriately placed. Hence we will likely start feeding tomorrow. In the meantime the patient could be given her oral medications via PEG tube, and no need for a nasogastric tube. WBC count today is 4.7 hemoglobin is 9.1. Sodium went up today from 118-122. And her renal functioning seems to be normal. Bicarb is 28. Pro-calcitonin is 0.10, seems to be negligible. Follow-up chest x-ray showed again low lung volumes and elevated diaphragms, patient continues to have perihilar and basilar infiltrate/atelectasis. On 08/07/2020 patient seen in follow-up in the intensive care unit, she is awake, she is confused, she is disoriented to place and time. Her speech is garbled. The patient seems to be in no acute distress. This morning she is on 2 L of oxygen, her pulse ox is 96-98%, patient is afebrile. Today's chest x-ray has been reviewed showing no significant change compared to the prior exam, basilar effusions, pneumonia, atelectasis. A stability of fluid volume overload not excluded. Patient is currently in sinus mechanism, with a controlled rate, she remains on Cardizem infusion at 10 mg per hour, 0.9 normal saline at a rate of 10 mL per hour. Patient has not been able to receive any of her oral medications related to purulent drainage around the PEG tube site insertion. Surgical services are following. PEG tube position was adjusted by general surgery, abdominal x-ray showed PEG tube appropriately placed. However on this morning's exam there is still some purulent drainage from around the PEG tube site insertion. No feedings have been initiated as of yet. Today's labs have been reviewed, showing white blood cell count of 4.5, hemoglobin of 8.3, serum sodium is 123, potassium is 4.5, chloride is 91, BUN is 10 and creatinine 0.31, proBNP came back at 1250. Lung sounds are diminished at the bases, no major rhonchi or wheezing. Nephrology is following and managing the serum sodium which is up to 123 on today's labs, antibiotic coverage in the form of cefepime and clindamycin. Cultures have been negative to date. On 08/08/2020 patient seen in follow-up in intensive care unit, she is resting comfortably in bed, appears to be in no acute distress, remains on 2 L of oxyge n, the pulse ox of 98%, hemodynamically patient is stable, not on any vasopressors, A. fib is currently controlled, and actually bradycardic with a rate of 58 BPM, she remains on Cardizem at 10 mg per hour, and amiodarone 0.5 mg/m, heparin drip at weight-based protocol, and IV maintenance fluids of 0.9 normal saline at a rate of KVO. Chest x-ray shows stable exam with markedly limited inspiration and bilateral consolidation and pleural effusions. No fever overnight, no leukocytosis, white blood cell count is 4.8, hemoglobin of 9.1, sodium is 122, stable, down from 123, potassium 3.7, chloride is 88, CO2 is 21, pO2 disease creatinine 0.34. Patient her PEG tube replaced by surgery, there is a small amount of yellowish drainage, which appears to be more seriously on today's exam rather than purulent as it was yesterday, remains on antibiotic clindamycin, cefepime, ID service is following, but cultures have been negative. Does not appear to be in any shortness of breath, breathing comfortably, she is awake and alert, she is watching cartoons on TV. On 08/09/2020 patient seen in follow-up in intensive care unit, she is awake and alert, appears to be in no distress, she is currently on 2 L of oxygen, pulse ox of 100%, hemodynamics is stable, she is afebrile, lung sounds reveal diminished breath sounds at the bases, and bibasilar crackles, today's chest x-ray has been reviewed showing probable subsegmental basilar atelectatic changes, and possible pleural effusions. Patient will receive a dose of IV Lasix today, hemodynamically stable, not on any vasopressors, she is just on 0.9 normal saline at a rate of 10 ML per hour, no other drips. No fever or chills, but culture has been negative were 96 hours. She has been receiving intermittent doses of IV Lasix, she is in -1.8 L over last 24 hours, has a mild bipedal edema, mild pretibial edema. She has been restarted on tube feedings yesterday, she is on Jevity 1.5 at 40 mL an hour, tolerating tube feedings well. On 08/10/2020 patient seen in follow-up in the intensive care unit, she is awake, she doesn't attempt to respond today, she is being quiet. Doesn't appear to be in any acute distress. Yesterday chest x-ray showed possible pleural effusions, and subsegmental basilar atelectatic changes, in addition patient has had the lower extremity edema, consistent with fluid volume overload, patient was given a dose of IV Lasix yesterday, he has made almost 3 L of urine output, and she is in -1.8 L over last 24 hours, today's exam patient does not appear to be in any respiratory distress, lung sounds revealed diminished breath sounds with dullness at bilateral bases, and bibasilar crackles. Still has lower extremity edema, may be slightly improved, her weight is down by 1.1 kg in the last 24 hours. She is tolerating tube feedings, receiving Jevity 1.5 at 40, with a goal of 40, no nausea vomiting or diarrhea, she is 0.9 normal saline at 10 ML per hour, she remains on 2 L of oxygen, with a pulse ox of 97%. Today's chest x-ray shows stable findings of bibasilar atelectatic changes, and small pleural effusions. Patient has been afebrile, she had a cough, or phlegm production. She remains on antibiotics, in the form of cefepime, clindamycin, cultures have been negative. On 08/11/2020 patient seen in follow-up in the intensive care unit, she is awake, and alert, she is nonverbal, does not appear to be in any acute distress, she is currently on 2 L of oxygen with a pulse ox of 97%, patient has been afebrile, lung sounds reveal some bibasilar crackles. Today we put her on maintenance dose of Lasix 40 mg twice daily, she is in -1.5 L fluid balance over last 24 hours, today's chest x-ray reviewed, showing bilateral consolidation and pleural effusion is relatively stable in appearance the exam is limited related to reduced inspiration. Today's labs have been reviewed, white blood cell count of 5.8, hemoglobin of 9.8, sodium is 134, potassium is 3.8, chloride is 86, CO2 was 43 likely related to volume contraction alkalosis, BUN is 16 and creatinine 0.35, no respiratory distress, no cough, congestion. Her follow-up pro- calcitonin can back the increased from previous at 0.15, up from 0.110 on 08/05/2020. Patient remains on antibiotics yesterday we simplified and, in the currently just on cefepime, discontinue clindamycin. No fever chills, she is tolerating tube feedings, no nausea vomiting or diarrhea. The patient is seen today 08/12/2020 in follow-up on the regular medical floor. She is currently resting comfortably in bed. She is nonverbal. She is maintaining good O2 saturations in the mid 90s on 2 L/m per nasal cannula. She's afebrile. Hemodynamically stable. She is receiving Jevity 1.5-calorie at 40 ML's per hour which is goal. Via her PEG tube. Objective - Vital Signs Vital signs: Vital Signs Temp 99.1 F 08/12/20 15:00 Pulse 76 08/12/20 15:00 Resp 17 08/12/20 15:00 BP 124/72 08/12/20 15:00 Pulse Ox 96 08/12/20 15:00 Intake & Output 08/11/20 08/12/20 08/12/20 18:59 06:59 18:59 Intake Total 380 190 320 Output Total 245 2074 Balance 135 -1885 320 Weight 72.5 kg Intake: IV 40 110 0.9 40 110 Tube Feeding 240 80 320 Other 100 Output: Urine 245 2074 Other: Voiding Method Indwelling Catheter Indwelling Catheter Indwelling Catheter - Exam GENERAL EXAM: Alert, 62-year-old white female, suspect underlying neurocognitive disorder, and chronic cognitive impairment, confused, only oriented to self, disoriented to person and time, 2 L of oxygen a pulse ox of 97% comfortable in no apparent distress. HEAD: Normocephalic/atraumatic. EYES: Normal reaction of pupils, equal size. Conjunctiva pink, sclera white. NOSE: Clear with pink turbinates. THROAT: No erythema or exudates. NECK: No masses, no JVD, no thyroid enlargement, no adenopathy. CHEST: No chest wall deformity. Symmetrical expansion. LUNGS: Equal air entry with no crackles, wheeze, rhonchi or dullness. CVS: Regular rate and rhythm, normal S1 and S2, no gallops, no murmurs, no rubs ABDOMEN: Soft, nontender. No hepatosplenomegaly, normal bowel sounds, no guarding or rigidity. Active in place, with tube feedings infusing, with the Jevity 1.5 at rate of 40 ML per hour EXTREMITIES: No clubbing, mild 1+ lower extremity edema, no cyanosis, 2+ pulses and upper and lower extremities. MUSCULOSKELETAL: Spasticity of lower extremities noted, patient has chronic contractures involving bilateral hands and lower extremities SPINE: No scoliosis or deformity SKIN: No rashes CENTRAL NERVOUS SYSTEM: Alert and oriented -1. No focal deficits, tone is normal in all 4 extremities. - Labs CBC & Chem 7: 08/11/20 05:32 08/11/20 05:32 Assessment and Plan Assessment: #1. Acute hypoxic respiratory failure related to possibility of bibasilar pneumonia, strongly suspect aspiration pneumonia. Chest x-ray also shows small dural effusions, and cephalization, increased interstitium consistent with fluid overload #2. 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 Malpositioning of the PEG tube, status post surgical replacement of the PEG tube #4. Hyponatremia, likely hypovolemic, improved, patient is status post hypertonic saline infusion, which has improved serum sodium and hypertonic saline has been discontinued. Sodium is improving, and it's up to 132 on today 's labs, she has been receiving intermittent doses of Lasix #5. Hypothyroidism, levothyroxine #6. Nothing by mouth status, related to malpositioning of the PEG tube, has been restarted on tube feedings on 08/09/2020, so far tolerating them well, on Jevity 1.5 and a rate of 40 with a goal of 40 #7. Suspect chronic cognitive impairment #8. Chronic A. fib, controlled, we'll discontinue Cardizem and amiodarone, patient is on chronic anticoagulation in the form of Eliquis Plan: The patient was seen and evaluated by Dr. Chaudhari She is stable from the pulmonary and critical care standpoint Will see her as needed I, the cosigning physician, performed a history & physical examination of the patient. Lungs sounds are clear, , diminished. Maintaining good O2 saturations in the 90s on 2 L/m per nasal cannula. I discussed the assessment and plan of care with my nurse practitioner, Penny Garcia. I attest to the above note as dictated by her.
--- NOTE | 2020-08-12 19:30 | P.PN ---
Progress Note - Text Progress Note Date: 08/12/20 presenting complaint: Short of breath Interval history: Patient is a 70-year-old female with a history of cerebral palsy with G-tube placement, functional quadriplegia, seizure disorder, hypothyroidism, and GERD who presented from her [facility] in [place] to the emergency room due to shortness of breath. In the emergency department she underwent an extensive evaluation. She underwent a CT chest/abdomen/pelvis was found to have pulmonary atelectasis and infilraes with elevated diaphragms, and a malposition gastrostomy tube. EKG showed NSR at 68. Lab evaluation showed a sodium of 115, potassium 5.5, chloride 78, BUN 20, creatinine 0.39, magnesium 1.5 , hemoglobin 10.6, TSH 10.8 with free T4 of 1.54. She was admitted to the ICU secondary to her severe hyponatremia. She ultimately was started on 3% saline by nephrology. She was monitored closely. Her PEG tube was reinserted into the stomach by emergency department staff. She is felt to likely have pneumonia and she was also started on cefepime for possible aspiration. Her Covid 19 test came back negative. She was seen by pulmonary and was placed on BiPAP. Clindamycin was added. On 07/06 patient's PEG tube was removed at bedside with gentle traction and a 16-Persian Pelletier catheter was inserted into the stomach with inflation of the balloon. Her oxygenation continued to improve and by 07/06 she was weaned to 2 L nasal cannula. She did develop some signs of fluid overload. She was started on Lasix. She also required Samsca to help with her hyponatremia. While she was nothing by mouth she developed atrial fibrillation with rapid ventricular response and required IV amiodarone and Cardizem as well as a heparin drip. Once her PEG tube was reinserted she was resumed on her home oral amiodarone and Lopressor. She continued to slowly improve. After second dose of Samsca her sodium came up to 132. Today-medical floor. Laying in bed, awake. Following commands. Tolerating tube feeding. Review of system could not be done because patient unable to communicate well. Active Medications Albuterol/Ipratropium (Ipratropium-Albuterol 3 Ml Neb) 3 ml INHALATION RT-QID [facility] Last Admin: 08/12/20 17:50 Dose: 3 ml Documented by: Amiodarone HCl (Amiodarone 200 Mg Tab) 200 mg PO DAILY [facility] Last Admin: 08/12/20 08:46 Dose: 200 mg Documented by: Apixaban (Apixaban 5 Mg Tab) 5 mg PO BID [facility] Last Admin: 08/12/20 08:46 Dose: 5 mg Documented by: Aspirin (Aspirin 81 Mg) 81 mg PO DAILY [facility] Last Admin: 08/12/20 08:46 Dose: 81 mg Documented by: Clotrimazole (Clotrimazole 1% Cream 15 Gm Tube) 1 applic TOPICAL BID PRN PRN Reason: Rash Famotidine (Famotidine 20 Mg Tab) 20 mg PO BID [facility] Last Admin: 08/12/20 08:46 Dose: 20 mg Documented by: Furosemide (Furosemide 10 Mg/Ml 4 Ml Vial) 40 mg IV DAILY [facility] Last Admin: 08/12/20 08:46 Dose: 40 mg Documented by: Cefepime HCl 1 gm/ Sodium (Chloride) 50 mls @ 12.5 mls/hr IVPB Q12H [facility] Last Admin: 08/12/20 10:34 Dose: 12.5 mls/hr Documented by: Levothyroxine Sodium (Levothyroxine 125 Mcg Tab) 125 mcg PO DAILY@0630 [facility] Last Admin: 08/12/20 06:25 Dose: 125 mcg Documented by: Magnesium Oxide (Magnesium Oxide 400 Mg Tab) 400 mg PO BID [facility] Last Admin: 08/12/20 08:45 Dose: 400 mg Documented by: Metoprolol Tartrate (Metoprolol Tartrate 25 Mg Tab) 75 mg PO BID [facility] Last Admin: 08/12/20 08:46 Dose: 75 mg Documented by: Miscellaneous Information (Potassium Replacement Protocol 1 Each Misc) 1 each MISCELLANE DAILY PRN; Protocol PRN Reason: Per Protocol Miscellaneous Information (Magnesium Replacement Protocol 1 Each Misc) 1 each MISCELLANE DAILY PRN; Protocol PRN Reason: Per Protocol Morphine Sulfate (Morphine Sulfate 2 Mg/Ml Syringe) 2 mg IV Q4H PRN PRN Reason: Pain Scale 4 to 5 Last Admin: 08/06/20 14:01 Dose: 2 mg Documented by: Naloxone HCl (Naloxone 0.4 Mg/Ml 1 Ml Vial) 0.2 mg IV Q2M PRN PRN Reason: Opioid Reversal On examination: VITAL SIGNS: 99.1, 76, 17, 1 24 x 72, 96% on 2 L GENERAL APPEARANCE: reclining in bed tired awake EYES: Pupils equal. Conjunctiva normal. NECK: JVD unable to assess Mass not palpable. RESPIRATORY: Respiratory effort increase Lungs decreased breath sounds CARDIOVASCULAR: First and second sounds normal. No edema. ABDOMEN: Soft. Liver and spleen not palpable. No tenderness. No mass palpable. PEG tube- feeding PSYCHIATRY: just follows some commands NEUROLOGICAL:all 4 limbs contracted INVESTIGATIONS, reviewed in the clinical context: White count 5.8 hemoglobin 9.8 platelets 222 potassium 3.8 creatinine 0.35 checks x-ray from today-primary changes present. Previous testing: Osteopenia, mild compression deformity of multiple lumbar and lower thoracic vertebra, significant elevation of diaphragm possibly from poor inspiration, bilateral pulmonary atelectasis infiltrate.neck 2 almost all set the stomach. assessment and plan: Left lower lobe pneumonia, possible aspiration versus gram-negative, -Continue with cefepime, clindamycin - follow CXR - Pulm hygeine -COVID 19 negative Acute hypoxic respiratory fialure-now down to 90-91% on room air Hyponatremia, now hypervolemia Malpositioned PEG tube - replaced and appears working correctly persistent A fib with RVR, now bradycardiac - oral amio, lopressor - Eliquis Cerebral palasy with functional quadraplegia, advanced cognitive impairment - supportive care Hypothyroidism - Levothyroxine Hypomagnesemia, resolved Chronic thoracolumbar vertebra collapse Chronic medical debility
[2020-08-13] MEDS: LEVOTHYROXINE 125 MCG TAB PO SCH (06:09)
[2020-08-13] MEDS: FUROSEMIDE 10 MG/ML 4 ML VIAL IV SCH (07:24)
[2020-08-13] MEDS: FAMOTIDINE 20 MG TAB PO SCH ×2 (07:25→22:02)
[2020-08-13] MEDS: METOPROLOL TARTRATE 25 MG TAB PO SCH ×2 (07:25→22:03)
[2020-08-13] MEDS: ASPIRIN 81 MG PO SCH (07:25)
[2020-08-13] MEDS: AMIODARONE 200 MG TAB PO SCH (07:25)
[2020-08-13] MEDS: APIXABAN 5 MG TAB PO SCH ×2 (07:25→22:02)
[2020-08-13] MEDS: MAGNESIUM OXIDE 400 MG TAB PO SCH ×2 (07:25→22:02)
--- NOTE | 2020-08-13 07:44 | P.PN ---
Subjective Progress Note Date: 08/13/20 Principal diagnosis: Mrs. Chang is a 70-year-old female with cerebral palsy who is a resident of a [facility]. Admitted to the hospital with shortness of breath. Is difficult to communicate with her. She was seen in consultation because of hyponatremia with serum sodium 115 and admission. Initially it was thought to be congestive heart failure and has been improving with Lasix. In the hospital she has developed significant metabolic alkalosis. Lasix was reduced day before yesterday, on 40 mg IV daily. Her labs on 08/11/2020, bicarb went up from 38-43 Creatinine is stable at 0.35, BUN is 16. Potassium is 3.8 and sodium is 134. Labs yesterday is not available and today's pending She has a low-grade temperature of 100.5 heart rate in the 70s to 80s and blood pressure in the 120s systolic range. urine output is 2320 intake is 570 Currently she is being fed via a PEG. She also has a colostomy. Objective - Vital Signs Vital signs: Vital Signs Temp 98.4 F 08/13/20 07:00 Pulse 88 08/13/20 07:00 Resp 18 08/13/20 07:00 BP 123/56 08/13/20 07:00 Pulse Ox 98 08/13/20 07:00 Intake & Output 08/12/20 08/13/20 08/13/20 18:59 06:59 18:59 Intake Total 320 240 Output Total 2000 Balance 320 -1760 Weight 73.5 kg Intake: Oral 0 Tube Feeding 320 240 Output: Urine 1000 Stool 1000 Other: Voiding Method Indwelling Catheter Indwelling Catheter Examination she is making eye contact but does not follow commands. HEENT exam no JVP no facial asymmetry Lungs are clear to auscultation good air entry bilaterally Heart sounds unremarkable for any murmur rub gallop Abdomen soft nontender Extremity exam was no edema Neurologically she is in a curled up position. Some flexion deformities - Labs CBC & Chem 7: 08/11/20 05:32 08/11/20 05:32 Assessment and Plan Assessment: Impression 1. Hyponatremia secondary to congestive heart failure improved with Lasix. 2. Significant metabolic alkalosis secondary to diuretics, worsening. 3. Cerebral palsy 4. Currently in sinus rhythm 5. Colostomy and PEG Recommendation 1. Hold Lasix. 2. Pending labs today. If bicarbonate worsens was started on Diamox 250 3 times a day for 2 or 3 days with close monitoring of electrolytes.
[2020-08-13] MEDS: CEFEPIME 1 GM in SODIUM CHLORIDE 0.9% 50 ML IVPB SCH (09:39)
[2020-08-13] MEDS: IPRATROPIUM-ALBUTEROL 3 ML NEB INHALATION SCH ×4 (09:42→20:24)
[2020-08-13 11:49] LABS: Anion Gap 6.1 mmol/L (4.00-12.00); BUN/Creat Ratio 52.5 Ratio (12.00-20.00); Calcium 8.5 mg/dL (8.7-10.3); Carbon Dioxide 38.9 mmol/L (21.6-31.8); Potassium 3.7 mmol/L (3.5-5.5)
[2020-08-13 14:35] VITALS: RESP 16
--- NOTE | 2020-08-13 21:48 | P.PN ---
Progress Note - Text Progress Note Date: 08/13/20 presenting complaint: Short of breath Interval history: Patient is a 70-year-old female with a history of cerebral palsy with G-tube placement, functional quadriplegia, seizure disorder, hypothyroidism, and GERD who presented from her intermediate facility in [place] to the emergency room due to shortness of breath. In the emergency department she underwent an extensive evaluation. She underwent a CT chest/abdomen/pelvis was found to have pulmonary atelectasis and infilraes with elevated diaphragms, and a malposition gastrostomy tube. EKG showed NSR at 68. Lab evaluation showed a sodium of 115, potassium 5.5, chloride 78, BUN 20, creatinine 0.39, magnesium 1.5 , hemoglobin 10.6, TSH 10.8 with free T4 of 1.54. She was admitted to the ICU secondary to her severe hyponatremia. She ultimately was started on 3% saline by nephrology. She was monitored closely. Her PEG tube was reinserted into the stomach by emergency department staff. She is felt to likely have pneumonia and she was also started on cefepime for possible aspiration. Her Covid 19 test came back negative. She was seen by pulmonary and was placed on BiPAP. Clindamycin was added. On 07/06 patient's PEG tube was removed at bedside with gentle traction and a 16-Uzbek Pelletier catheter was inserted into the stomach with inflation of the balloon. Her oxygenation continued to improve and by 07/06 she was weaned to 2 L nasal cannula. She did develop some signs of fluid overload. She was started on Lasix. She also required Samsca to help with her hyponatremia. While she was nothing by mouth she developed atrial fibrillation with rapid ventricular response and required IV amiodarone and Cardizem as well as a heparin drip. Once her PEG tube was reinserted she was resumed on her home oral amiodarone and Lopressor. She continued to slowly improve. After second dose of Samsca her sodium came up to 132. Today-medical floor. comfortable. Laying in bed. tolerating 2 feeding. Plan was to discharge the patient. But the intermediate does not have the staff to make the discharge. Review of system could not be done because patient unable to communicate well. Active Medications Albuterol/Ipratropium (Ipratropium-Albuterol 3 Ml Neb) 3 ml INHALATION RT-QID [facility] Last Admin: 08/13/20 20:24 Dose: Not Given Documented by: Amiodarone HCl (Amiodarone 200 Mg Tab) 200 mg PO DAILY [facility] Last Admin: 08/13/20 07:25 Dose: 200 mg Documented by: Apixaban (Apixaban 5 Mg Tab) 5 mg PO BID [facility] Last Admin: 08/13/20 07:25 Dose: 5 mg Documented by: Aspirin (Aspirin 81 Mg) 81 mg PO DAILY [facility] Last Admin: 08/13/20 07:25 Dose: 81 mg Documented by: Clotrimazole (Clotrimazole 1% Cream 15 Gm Tube) 1 applic TOPICAL BID PRN PRN Reason: Rash Famotidine (Famotidine 20 Mg Tab) 20 mg PO BID [facility] Last Admin: 08/13/20 07:25 Dose: 20 mg Documented by: Levothyroxine Sodium (Levothyroxine 125 Mcg Tab) 125 mcg PO DAILY@0630 [facility] Last Admin: 08/13/20 06:09 Dose: 125 mcg Documented by: Magnesium Oxide (Magnesium Oxide 400 Mg Tab) 400 mg PO BID [facility] Last Admin: 08/13/20 07:25 Dose: 400 mg Documented by: Metoprolol Tartrate (Metoprolol Tartrate 25 Mg Tab) 75 mg PO BID [facility] Last Admin: 08/13/20 07:25 Dose: 75 mg Documented by: Miscellaneous Information (Potassium Replacement Protocol 1 Each Misc) 1 each MISCELLANE DAILY PRN; Protocol PRN Reason: Per Protocol Miscellaneous Information (Magnesium Replacement Protocol 1 Each Misc) 1 each MISCELLANE DAILY PRN; Protocol PRN Reason: Per Protocol Morphine Sulfate (Morphine Sulfate 2 Mg/Ml Syringe) 2 mg IV Q4H PRN PRN Reason: Pain Scale 4 to 5 Last Admin: 08/06/20 14:01 Dose: 2 mg Documented by: Naloxone HCl (Naloxone 0.4 Mg/Ml 1 Ml Vial) 0.2 mg IV Q2M PRN PRN Reason: Opioid Reversal On examination: VITAL SIGNS: 98.1, 76, 16, 142/69, 99% room air GENERAL APPEARANCE: reclining in bed tired awake EYES: Pupils equal. Conjunctiva normal. NECK: JVD unable to assess Mass not palpable. RESPIRATORY: Respiratory effort increase Lungs decreased breath sounds CARDIOVASCULAR: First and second sounds normal. No edema. ABDOMEN: Soft. Liver and spleen not palpable. No tenderness. No mass palpable. PEG tube- feeding PSYCHIATRY: just follows some commands NEUROLOGICAL:all 4 limbs contracted INVESTIGATIONS, reviewed in the clinical context: White count 5.8 hemoglobin 9.8 platelets 222 potassium 3.7 creatinine 0.4 checks x-ray from today-primary changes present. Previous testing: Osteopenia, mild compression deformity of multiple lumbar and lower thoracic vertebra, significant elevation of diaphragm possibly from poor inspiration, bilateral pulmonary atelectasis infiltrate.neck 2 almost all set the stomach. assessment and plan: Left lower lobe pneumonia, possible aspiration versus gram-negative, -completed course of cefepime, clindamycin -COVID 19 negative Acute hypoxic respiratory fialure--improved Hyponatremia, now hypervolemia Malpositioned PEG tube - replaced and appears working correctly persistent A fib with RVR, now bradycardiac - oral amio, lopressor - Eliquis Cerebral palasy with functional quadraplegia, advanced cognitive impairment - supportive care Hypothyroidism - Levothyroxine Hypomagnesemia, resolved Chronic thoracolumbar vertebra collapse Chronic medical debility Discharge planning: Discharge postpone as accepting facility not ready for discharge today.
[2020-08-14] MEDS: LEVOTHYROXINE 125 MCG TAB PO SCH (06:19)
[2020-08-14] MEDS: METOPROLOL TARTRATE 25 MG TAB PO SCH (07:46)
[2020-08-14] MEDS: AMIODARONE 200 MG TAB PO SCH (07:46)
[2020-08-14] MEDS: FAMOTIDINE 20 MG TAB PO SCH (07:46)
[2020-08-14] MEDS: APIXABAN 5 MG TAB PO SCH (07:47)
[2020-08-14] MEDS: MAGNESIUM OXIDE 400 MG TAB PO SCH (07:47)
[2020-08-14] MEDS: ASPIRIN 81 MG PO SCH (07:47)
[2020-08-14 07:52] VITALS: BP 143/67; TEMP 98.3
[2020-08-14 09:13] VITALS: PULSE 80
[2020-08-14] MEDS: IPRATROPIUM-ALBUTEROL 3 ML NEB INHALATION SCH ×2 (09:26→13:24)
--- NOTE | 2020-08-14 11:11 | P.PN ---
Progress Note - Text Progress Note Date: 08/14/20 Patient's resting comfortably in her bed. On exam vital signs are stable. Abdomen soft. 2 feeds are at goal.
--- NOTE | 2020-08-14 12:39 | P.PN ---
Subjective Patient is seen in follow-up for hyponatremia and metabolic alkalosis. Sodium level 136 as of yesterday. Bicarb level 38.9 as of yesterday. Patient is not a reliable historian. She is receiving tube feeding. Blood pressure stable. Nonoliguric. Vital signs are stable. General: The patient appeared well nourished and normally developed. HEENT: Head exam is unremarkable. Neck is without jugular venous distension. LUNGS: Breath sounds decreased. HEART: Rate and Rhythm are regular. ABDOMEN: Soft, nontender. EXTREMITITES: No edema. Objective - Vital Signs Vital signs: Vital Signs Temp 98.3 F 08/14/20 07:00 Pulse 80 08/14/20 09:12 Resp 16 08/14/20 07:40 BP 143/67 08/14/20 07:00 Pulse Ox 98 08/14/20 07:00 Intake & Output 08/13/20 08/14/20 08/14/20 18:59 06:59 18:59 Intake Total 320 600 800 Output Total 105 305 Balance 320 495 495 Weight 74.5 kg Intake: Oral 0 0 Tube Feeding 320 600 800 Output: Urine 105 305 Other: Voiding Method Indwelling Catheter Indwelling Catheter Indwelling Catheter - Labs CBC & Chem 7: 08/11/20 05:32 08/13/20 08:10 Assessment and Plan Plan: Assessment: 1. Hypervolemic hyponatremia improved with diuresis. 2. Metabolic alkalosis secondary to volume contraction from diuretics. 3. Cerebral palsy. Plan: Repeat electrolytes in the morning. Maintain tube feeding. Diuretics held.
--- NOTE | 2020-08-14 16:33 | P.PN ---
Subjective Progress Note Date: 08/14/20 Principal diagnosis: Acute bibasilar pneumonia possible aspiration pneumonia This is a 70-year-old female with history of multiple medical problems, patient is paraplegic, known history of cerebral palsy, resides at [facility] in [place]. Patient was sent to the ER mostly because she was noted to have shortness of breath, and noted to have in respiratory distress at the detention. Patient was sent to the ER, and she had multiple abnormal findings including abnormal chest x-ray showing bibasilar atelectasis/infiltrates. Abnormal CT of the abdomen and pelvis confirming the same, abnormal electrolytes with low sodium of 1:15 and elevated potassium of 5 .5. Abnormal TSH. Patient had a chronic indwelling PEG tube, and she had a colostomy in place. The patient is nonverbal, considering the multiple abnormalities noted patient was admitted to the ICU, and I was asked to see her on consultation. Upon my initial evaluation, the patient was noted to be in respiratory distress, seems to be working hard to take a deep breath. She was on a Ventimask, and I recommended switching the Ventimask to a BiPAP with IPAP of 12 and EPAP of 6, and FiO2 of 40%. As soon as the patient was placed on BiPAP, there was clearly evidence of improvement in her respiratory status and was not working as hard to breathe. Hence kept on BiPAP. Reviewed her chest x-ray patient may have paralyzed diaphragms since they seem to be extremely elevated on both sides. Patient may also have aspiration pneumonia although the patient is nothing by mouth, and she has a PEG tube in place used for nutritional support. Hence I recommended broadening the spectrum of coverage with antibiotics, added clindamycin to her cefepime. Patient has multiple ALLERGIES including ALLERGY to penicillin. In the ER, patient was given IV fluids in the form of 0.9 normal saline, she was noted to be clinically dehydrated, repeat sodium in the ICU came up to 117 from 115 on admission. And her potassium came down to 4.9 from 5.9. PCR for covid 19 came back negative. Patient was reevaluated today on 08/06/20, remains in the ICU, sitting in bed, seems to be fairly comfortable. However the patient is in atrial fibrillation, poorly controlled, rate is 114 this morning, and considering the patient had all her medications on hold orally, she is now on Cardizem drip for atrial fibri llation. She is hemodynamically stable, blood pressure is 115/53, and her O2 saturation is 100%, on 4 L nasal cannula. Sodium remains low at 118 and she is now on 3% saline at 20 mL per hour ordered by nephrology on the case. Patient was seen by general surgery, her PEG tube was removed at the bedside, and a 16- Welsh Pelletier catheter was placed in the tract and position of the stomach the balloon was inflated with 10 mL of saline and the patient is to have x-rays to confirm position of the feeding tube. Follow-up x-ray showed adequate placement of the PEG tube and seems to be appropriately placed. Hence we will likely start feeding tomorrow. In the meantime the patient could be given her oral medications via PEG tube, and no need for a nasogastric tube. WBC count today is 4.7 hemoglobin is 9.1. Sodium went up today from 118-122. And her renal functioning seems to be normal. Bicarb is 28. Pro-calcitonin is 0.10, seems to be negligible. Follow-up chest x-ray showed again low lung volumes and elevated diaphragms, patient continues to have perihilar and basilar infiltrate/atel ectasis. On 08/07/2020 patient seen in follow-up in the intensive care unit, she is awake, she is confused, she is disoriented to place and time. Her speech is garbled. The patient seems to be in no acute distress. This morning she is on 2 L of oxygen, her pulse ox is 96-98%, patient is afebrile. Today's chest x-ray has been reviewed showing no significant change compared to the prior exam, b asilar effusions, pneumonia, atelectasis. A stability of fluid volume overload not excluded. Patient is currently in sinus mechanism, with a controlled rate, she remains on Cardizem infusion at 10 mg per hour, 0.9 normal saline at a rate of 10 mL per hour. Patient has not been able to receive any of her oral medications related to purulent drainage around the PEG tube site insertion. Surgical services are following. PEG tube position was adjusted by general surgery, abdominal x-ray showed PEG tube appropriately placed. However on this morning's exam there is still some purulent drainage from around the PEG tube site insertion. No feedings have been initiated as of yet. Today's labs have been reviewed, showing white blood cell count of 4.5, hemoglobin of 8.3, serum sodium is 123, potassium is 4.5, chloride is 91, BUN is 10 and creatinine 0.31, proBNP came back at 1250. Lung sounds are diminished at the bases, no major rhonchi or wheezing. Nephrology is following and managing the serum sodium which is up to 123 on today's labs, antibiotic coverage in the form of cefepime and clindamycin. Cultures have been negative to date. On 08/08/2020 patient seen in follow-up in intensive care unit, she is resting comfortably in bed, appears to be in no acute distress, remains on 2 L of oxygen, the pulse ox of 98%, hemodynamically patient is stable, not on any vasopressors, A. fib is currently controlled, and actually bradycardic with a rate of 58 BPM, she remains on Cardizem at 10 mg per hour, and amiodarone 0.5 mg/m, heparin drip at weight-based protocol, and IV maintenance fluids of 0.9 normal saline at a rate of KVO. Chest x-ray shows stable exam with markedly limited inspiration and bilateral consolidation and pleural effusions. No fever overnight, no leukocytosis, white blood cell count is 4.8, hemoglobin of 9.1, sodium is 122, stable, down from 123, potassium 3.7, chloride is 88, CO2 is 21, pO2 disease creatinine 0.34. Patient her PEG tube replaced by surgery, there is a small amount of yellowish drainage, which appears to be more seriously on today's exam rather than purulent as it was yesterday, remains on antibiotic clindamycin, cefepime, ID service is following, but cultures have been negative. Does not appear to be in any shortness of breath, breathing comfortably, she is awake and alert, she is watching cartoons on TV. On 08/09/2020 patient seen in follow-up in intensive care unit, she is awake and alert, appears to be in no distress, she is currently on 2 L of oxygen, pulse ox of 100%, hemodynamics is stable, she is afebrile, lung sounds reveal diminished breath sounds at the bases, and bibasilar crackles, today's chest x-ray has been reviewed showing probable subsegmental basilar atelectatic changes, and possible pleural effusions. Patient will receive a dose of IV Lasix today, hemodynamically stable, not on any vasopressors, she is just on 0.9 normal saline at a rate of 10 ML per hour, no other drips. No fever or chills, but culture has been negative were 96 hours. She has been receiving intermittent doses of IV Lasix, she is in -1.8 L over last 24 hours, has a mild bipedal edema, mild pretibial edema. She has been restarted on tube feedings yesterday, she is on Jevity 1.5 at 40 mL an hour, tolerating tube feedings well. On 08/10/2020 patient seen in follow-up in the intensive care unit, she is awake, she doesn't attempt to respond today, she is being quiet. Doesn't appear to be in any acute distress. Yesterday chest x-ray showed possible pleural effusions, and subsegmental basilar atelectatic changes, in addition patient has had the lower extremity edema, consistent with fluid volume overload, patient was given a dose of IV Lasix yesterday, he has made almost 3 L of urine output, and she is in -1.8 L over last 24 hours, today's exam patient does not appear to be in any respiratory distress, lung sounds revealed diminished breath sounds with dullness at bilateral bases, and bibasilar crackles. Still has lower extremity edema, may be slightly improved, her weight is down by 1.1 kg in the last 24 hours. She is tolerating tube feedings, receiving Jevity 1.5 at 40, with a goal of 40, no nausea vomiting or diarrhea, she is 0.9 normal saline at 10 ML per hour, she remains on 2 L of oxygen, with a pulse ox of 97%. Today's chest x-ray shows stable findings of bibasilar atelectatic changes, and small pleural effusions. Patient has been afebrile, she had a cough, or phlegm production. She remains on antibiotics, in the form of cefepime, clindamycin, cultures have been negative. On 08/11/2020 patient seen in follow-up in the intensive care unit, she is awake, and alert, she is nonverbal, does not appear to be in any acute distress, she is currently on 2 L of oxygen with a pulse ox of 97%, patient has been afebrile, lung sounds reveal some bibasilar crackles. Today we put her on maintenance dose of Lasix 40 mg twice daily, she is in -1.5 L fluid balance over last 24 hours, today's chest x-ray reviewed, showing bilateral consolidation and pleural effusion is relatively stable in appearance the exam is limited related to reduced inspiration. Today's labs have been reviewed, white blood cell count of 5.8, hemoglobin of 9.8, sodium is 134, potassium is 3.8, chloride is 86, CO2 was 43 likely related to volume contraction alkalosis, BUN is 16 and creatinine 0.35, no respiratory distress, no cough, congestion. Her follow-up pro- calcitonin can back the increased from previous at 0.15, up from 0.110 on 08/05/2020. Patient remains on antibiotics yesterday we simplified and, in the currently just on cefepime, discontinue clindamycin. No fever chills, she is tolerating tube feedings, no nausea vomiting or diarrhea. On 08/14/2020 patient seen in follow-up on the general medical surgical floor, she is calm and comfortable, in no acute distress, vitals have been stable, 3 L of oxygen pulse ox of 98%, she is afebrile, hemodynamically she's been stable, no chest discomfort, no significant cough or congestion. She is being nourished via her PEG tube, tolerating tube feedings well, no new chest x-rays, she's been treated with the antibiotics, her blood cultures have remained negative this admission. She has been diuresed she is in positive fluid balance today, +815. Today's labs have been reviewed, showing sodium of 136, potassium 3.7, chloride is 91, CO2 is 30, BUN of 21 creatinine 0.4 Objective - Vital Signs Vital signs: Vital Signs Temp 98.3 F 08/14/20 07:00 Pulse 80 08/14/20 13:24 Resp 16 08/14/20 07:40 BP 143/67 08/14/20 07:00 Pulse Ox 98 08/14/20 07:00 Intake & Output 08/13/20 08/14/20 08/14/20 18:59 06:59 18:59 Intake Total 320 600 800 Output Total 105 305 Balance 320 495 495 Weight 74.5 kg Intake: Oral 0 0 Tube Feeding 320 600 800 Output: Urine 105 305 Other: Voiding Method Indwelling Catheter Indwelling Catheter Indwelling Catheter - Exam GENERAL EXAM: Alert, 62-year-old white female, suspect underlying neurocognitive disorder, and chronic cognitive impairment, confused, only oriented to self, disoriented to person and time, 2 L of oxygen a pulse ox of 97% comfortable in no apparent distress. HEAD: Normocephalic/atraumatic. EYES: Normal reaction of pupils, equal size. Conjunctiva pink, sclera white. NOSE: Clear with pink turbinates. THROAT: No erythema or exudates. NECK: No masses, no JVD, no thyroid enlargement, no adenopathy. CHEST: No chest wall deformity. Symmetrical expansion. LUNGS: Equal air entry with no crackles, wheeze, rhonchi or dullness. CVS: Regular rate and rhythm, normal S1 and S2, no gallops, no murmurs, no rubs ABDOMEN: Soft, nontender. No hepatosplenomegaly, normal bowel sounds, no guarding or rigidity. Active in place, with tube feedings infusing, with the Jevity 1.5 at rate of 40 ML per hour EXTREMITIES: No clubbing, mild 1+ lower extremity edema, no cyanosis, 2+ pulses and upper and lower extremities. MUSCULOSKELETAL: Spasticity of lower extremities noted, patient has chronic contractures involving bilateral hands and lower extremities SPINE: No scoliosis or deformity SKIN: No rashes CENTRAL NERVOUS SYSTEM: Alert and oriented -1. No focal deficits, tone is normal in all 4 extremities. - Labs CBC & Chem 7: 08/11/20 05:32 08/13/20 08:10 Assessment and Plan Plan: Assessment: #1. Acute hypoxic respiratory failure related to possibility of bibasilar pneumonia, strongly suspect aspiration pneumonia. Chest x-ray also shows small dural effusions, and cephalization, increased interstitium consistent with fluid overload #2. 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 Malpositioning of the PEG tube, status post surgical replacement of the PEG tube #4. Hyponatremia, likely hypovolemic, improved, patient is status post hypertonic saline infusion, which has improved serum sodium and hypertonic saline has been discontinued. Sodium is improving, and it's up to 132 on tod kimi's labs, she has been receiving intermittent doses of Lasix #5. Hypothyroidism, levothyroxine #6. Nothing by mouth status, related to malpositioning of the PEG tube, has been restarted on tube feedings on 08/09/2020, so far tolerating them well, on Jevity 1.5 and a rate of 40 with a goal of 40 #7. Suspect chronic cognitive impairment #8. Chronic A. fib, controlled, we'll discontinue Cardizem and amiodarone, patient is on chronic anticoagulation in the form of Eliquis Plan: No acute events overnight, no specific complaints, breathing is comfortable, no fever or chills, tolerating tube feedings, today's labs have been reviewed, discharge is pending for discharge to ECF today. Stable for discharge from pulmonary perspective I performed a history & physical examination of the patient and discussed their management with my nurse practitioner, Hollie Cornelius. I reviewed the nurse practitioner's note and agree with the documented findings and plan of care. Lung sounds are positive for diminished breath sounds. The findings and the impression was discussed with the patient. I attest to the documentation by the nurse practitioner. Time with Patient: Less than 30
--- NOTE | 2020-08-14 22:58 | P.DS ---
Providers Date of admission: 08/04/20 20:21 Expected date of discharge: 08/14/20 Attending physician: Sujit Vu Consults: 08/04/20 19:43 Consult Physician Routine Consulting Provider: Sienna Chen Consult Reason/Comments: hyponatremia Do you want consulting provider notified?: Yes Consult Physician Urgent Consulting Provider: Tj Nicole Consult Reason/Comments: icu Do you want consulting provider notified?: Yes 08/07/20 07:46 Consult Physician Routine Consulting Provider: Andrea Cao Consult Reason/Comments: peg tube evaluation Do you want consulting provider notified?: Already Contacted Primary care physician: Vitaliy Mendes MD Hospital Course: presenting complaint: Short of breath Interval history: Patient is a 70-year-old female with a history of cerebral palsy with G-tube placement, functional quadriplegia, seizure disorder, hypothyroidism, and GERD who presented from her detention facility in [place] to the emergency room due to shortness of breath. In the emergency department she underwent an extensive evaluation. She underwent a CT chest/abdomen/pelvis was found to have pulmonary atelectasis and infilraes with elevated diaphragms, and a malposition gastrostomy tube. EKG showed NSR at 68. Lab evaluation showed a sodium of 115, potassium 5.5, chloride 78, BUN 20, creatinine 0.39, magnesium 1.5 , hemoglobin 10.6, TSH 10.8 with free T4 of 1.54. She was admitted to the ICU secondary to her severe hyponatremia. She ultimately was started on 3% saline by nephrology. She was monitored closely. Her PEG tube was reinserted into the stomach by emergency department staff. She is felt to likely have pneumonia and she was also started on cefepime for possible aspiration. Her Covid 19 test came back negative. She was seen by pulmonary and was placed on BiPAP. Clindamycin was added. On 07/06 patient's PEG tube was removed at bedside with gentle traction and a 16-Alban[place] Pelletier catheter was inserted into the stomach with inflation of the balloon. Her oxygenation continued to improve and by 07/06 she was weaned to 2 L nasal cannula. She did develop some signs of fluid overload. She was started on Lasix. She also required Samsca to help with her hyponatremia. While she was nothing by mouth she developed atrial fibrillation with rapid ventricular response and required IV amiodarone and Cardizem as well as a heparin drip. Once her PEG tube was reinserted she was resumed on her home oral amiodarone and Lopressor. She continued to slowly improve. After second dose of Samsca her sodium came up to 132. Today-stable. Tolerating tube feeding. Will be going back to assisted living today. Patient completed course of antibiotic. Consultation: Dr. Cao from general surgery Nephrology Dr. Chaudhari and partners from pulmonary On examination: VITAL SIGNS: 98.3, 72, 17, 1 43 x 67, 98% on 3 L GENERAL APPEARANCE: reclining in bed tired awake EYES: Pupils equal. Conjunctiva normal. NECK: JVD unable to assess Mass not palpable. RESPIRATORY: Respiratory effort increase Lungs decreased breath sounds CARDIOVASCULAR: First and second sounds normal. No edema. ABDOMEN: Soft. Liver and spleen not palpable. No tenderness. No mass palpable. PEG tube- feeding PSYCHIATRY: just follows some commands NEUROLOGICAL:all 4 limbs contracted INVESTIGATIONS, reviewed in the clinical context: White count 5.8 hemoglobin 9.8 platelets 222 potassium 3.7 creatinine 0.4 checks x-ray from today-primary changes present. Previous testing: Osteopenia, mild compression deformity of multiple lumbar and lower thoracic vertebra, significant elevation of diaphragm possibly from poor inspiration, bilateral pulmonary atelectasis infiltrate.neck 2 almost all set the stomach. assessment : -Left lower lobe pneumonia, possible aspiration versus gram-negative, -completed course of cefepime, clindamycin -COVID 19 negative -Acute hypoxic respiratory fialure--improved -Hyponatremia, now hypervolemia -Malpositioned PEG tube- replaced -persistent A fib with RVR, ;.oral amio, lopressor Eliquis -Cerebral palasy with functional quadraplegia, advanced cognitive impairment -Hypothyroidism -Hypomagnesemia, resolved -Chronic thoracolumbar vertebra collapse -Chronic medical debility Disposition: [facility] Patient Condition at Discharge: Stable Plan - Discharge Summary New Discharge Prescriptions: Continue LORazepam [Ativan] 1 mg PEG/G-TUBE DAILY PRN PRN Reason: Seizures OVER 3 MINUTES Levothyroxine Sodium 112 mcg PEG/G-TUBE DAILY Ketoconazole 2% Cream [Nizoral 2%] 1 applic TOPICAL BID PRN PRN Reason: Rash Acetaminophen Tab [Tylenol] 650 mg PEG/G-TUBE Q4H PRN PRN Reason: Pain Sennosides [Senna] 17.2 mg PEG/G-TUBE HS polyethylene glycoL 3350 [Miralax] 17 gm PEG/G-TUBE DAILY Magnesium Hydroxide [Milk of Magnesia] 2,400 mg PEG/G-TUBE Q72H Metoprolol Tartrate [Lopressor] 75 mg PEG/G-TUBE Q12H Magnesium Oxide 400 mg PEG/G-TUBE Q12H Famotidine [Pepcid] 20 mg PEG/G-TUBE BID Apixaban [Eliquis] 5 mg PEG/G-TUBE BID Eslicarbazepine Acetate [Aptiom] 600 mg PEG/G-TUBE DAILY Atorvastatin Calcium [Lipitor] 40 mg PEG/G-TUBE HS Aspirin EC [Ecotrin Low Dose] 81 mg PEG/G-TUBE DAILY Amiodarone [Cordarone] 200 mg PEG/G-TUBE DAILY guaiFENesin [guaiFENesin Oral Solution] 200 mg PEG/G-TUBE Q4H PRN PRN Reason: Cough Changed Baclofen [Lioresal] 10 mg PEG/G-TUBE TID PRN #0 PRN Reason: Spasms Discontinued Fludrocortisone [Florinef] 0.1 mg PEG/G-TUBE DAILY Ibuprofen [Motrin Ib] 200 mg PEG/G-TUBE Q6H PRN PRN Reason: Pain Potassium Chloride See Taper PEG/G-TUBE DIRECTED Losartan Potassium 50 mg PEG/G-TUBE Q12H Furosemide [Lasix] 20 mg PEG/G-TUBE BID Azithromycin [Zithromax] See Taper PEG/G-TUBE HS Discharge Medication List LORazepam [Ativan] 1 mg PEG/G-TUBE DAILY PRN 03/05/16 [History] Levothyroxine Sodium 112 mcg PEG/G-TUBE DAILY 03/05/16 [History] Acetaminophen Tab [Tylenol] 650 mg PEG/G-TUBE Q4H PRN 08/04/20 [History] Amiodarone [Cordarone] 200 mg PEG/G-TUBE DAILY 08/04/20 [History] Apixaban [Eliquis] 5 mg PEG/G-TUBE BID 08/04/20 [History] Aspirin EC [Ecotrin Low Dose] 81 mg PEG/G-TUBE DAILY 08/04/20 [History] Atorvastatin Calcium [Lipitor] 40 mg PEG/G-TUBE HS 08/04/20 [History] Eslicarbazepine Acetate [Aptiom] 600 mg PEG/G-TUBE DAILY 08/04/20 [History] Famotidine [Pepcid] 20 mg PEG/G-TUBE BID 08/04/20 [History] Ketoconazole 2% Cream [Nizoral 2%] 1 applic TOPICAL BID PRN 08/04/20 [History] Magnesium Hydroxide [Milk of Magnesia] 2,400 mg PEG/G-TUBE Q72H 08/04/20 [History] Magnesium Oxide 400 mg PEG/G-TUBE Q12H 08/04/20 [History] Metoprolol Tartrate [Lopressor] 75 mg PEG/G-TUBE Q12H 08/04/20 [History] Sennosides [Senna] 17.2 mg PEG/G-TUBE HS 08/04/20 [History] guaiFENesin [guaiFENesin Oral Solution] 200 mg PEG/G-TUBE Q4H PRN 08/04/20 [History] polyethylene glycoL 3350 [Miralax] 17 gm PEG/G-TUBE DAILY 08/04/20 [History] Baclofen [Lioresal] 10 mg PEG/G-TUBE TID PRN #0 08/13/20 [Rx] Follow up Appointment(s)/Referral(s): Vitaliy Mendes MD [Primary Care Provider] - (physician will call with telehealth appointment time 08/15) Lazarus Wise [NON-STAFF] - Patient Instructions/Handouts: Dehydration (DC), Hyponatremia (DC), Community Acquired Pneumonia (DC), Weakness (DC) Activity/Diet/Wound Care/Special Instructions: baclofen - dose adjusted-not a new medicine
== END 2020-08-14 14:51 | disposition home health service (06) | DRG 177 ==
LOC: EC 18:10 → 2SICU 20:21 → 4SSUR 08-11 23:18
PROVIDERS: ADMIT Hospitalist; ATTEND Hospitalist
PROC: 5A09357 Assistance with Respiratory Ventilation, Less than 24 Consecutive Hours, Continuous Positive Airway Pressure (ICD-10-PCS; principal; 2020-08-05)
PROC: 0D20XUZ Change Feeding Device in Upper Intestinal Tract, External Approach (ICD-10-PCS; 2020-08-06)
PROC: 0DH67UZ Insertion of Feeding Device into Stomach, Via Natural or Artificial Opening (ICD-10-PCS; 2020-08-06)
PROC: 3E0G76Z Introduction of Nutritional Substance into Upper GI, Via Natural or Artificial Opening (ICD-10-PCS; 2020-08-06)
PROC: 05HB33Z Insertion of Infusion Device into Right Basilic Vein, Percutaneous Approach (ICD-10-PCS; 2020-08-08 13:40)
DX: J69.0 Pneumonitis due to inhalation of food and vomit (principal); J96.01 Acute respiratory failure with hypoxia; R53.2 Functional quadriplegia; E44.0 Moderate protein-calorie malnutrition; F72 Severe intellectual disabilities; E87.3 Alkalosis; E87.1 Hypo-osmolality and hyponatremia; E27.40 Unspecified adrenocortical insufficiency; K94.23 Gastrostomy malfunction; I48.19 Other persistent atrial fibrillation; M48.50XA Collapsed vertebra, not elsewhere classified, site unspecified, initial encounter for fracture; Z20.828 Contact with and (suspected) exposure to other viral communicable diseases; J98.6 Disorders of diaphragm; G80.8 Other cerebral palsy; E87.8 Other disorders of electrolyte and fluid balance, not elsewhere classified; Z93.3 Colostomy status; J44.9 Chronic obstructive pulmonary disease, unspecified; G40.909 Epilepsy, unspecified, not intractable, without status epilepticus; J15.6 Pneumonia due to other Gram-negative bacteria; K21.9 Gastro-esophageal reflux disease without esophagitis; E86.0 Dehydration; E03.9 Hypothyroidism, unspecified; E86.1 Hypovolemia; E83.42 Hypomagnesemia; E87.5 Hyperkalemia; R60.9 Edema, unspecified; E78.5 Hyperlipidemia, unspecified; E87.6 Hypokalemia; T50.1X5A Adverse effect of loop [high-ceiling] diuretics, initial encounter; Z74.01 Bed confinement status; Z71.3 Dietary counseling and surveillance; Z79.890 Hormone replacement therapy; Z79.1 Long term (current) use of non-steroidal anti-inflammatories (NSAID); Z79.899 Other long term (current) drug therapy; Z79.01 Long term (current) use of anticoagulants; Z79.52 Long term (current) use of systemic steroids; Z79.82 Long term (current) use of aspirin; Z87.19 Personal history of other diseases of the digestive system; Z99.3 Dependence on wheelchair; Z86.14 Personal history of Methicillin resistant Staphylococcus aureus infection; Z90.710 Acquired absence of both cervix and uterus; Z98.890 Other specified postprocedural states; Z88.0 Allergy status to penicillin; Z88.2 Allergy status to sulfonamides; Z88.8 Allergy status to other drugs, medicaments and biological substances; Z88.1 Allergy status to other antibiotic agents; Z91.02 Food additives allergy status
CPT/HCPCS: 36410; 36415; 51702; 70450; 71045; 71046; 71260; 74018; 74177; 76937; 80048; 80053; 82533; 82550; 82570; 83036; 83735; 83880; 83930; 83935; 84100; 84145; 84295; 84300; 84439; 84443; 84484; 84540; 85025; 85610; 85730; 87040; 87635; 93005; 94640; 94660; 96365; 96366; 96367; 96375; 99291

== ENCOUNTER 2020-08-17 11:43 | Emergency (ER) | payer MEDICARE, OTHER ==
[2020-08-17 11:48] VITALS: TEMP 98.4
[2020-08-17 13:32] VITALS: BP 121/61; PULSE 62; RESP 18
--- NOTE | 2020-08-17 14:10 | XR ---
EXAMINATION TYPE: XR abdomen 2V DATE OF EXAM: 08/17/2020 COMPARISON: 08/06/2020 HISTORY: PEG tube placement TECHNIQUE: One view abdominal series FINDINGS: Limited exam demonstrates a catheter with contrast in the stomach in the left upper quadrant. No extr avasation. IMPRESSION: 1. Limited exam demonstrates the PEG tube to be within the gastric body.
--- NOTE | 2020-08-17 14:14 | ED ---
General Adult HPI - General Chief complaint: Recheck/Abnormal Lab/Rx Stated complaint: Peg Tube Issue Time Seen by Provider: 08/17/20 11:45 Source: EMS Mode of arrival: EMS Limitations: altered mental status - History of Present Illness Initial comments: Patient is a 70-year-old female with past history of cerebral palsy who presents emergency department from [facility]. Staff report that they have been unable to use the patient's PEG tube. No other information is provided. I did review the patient's chart which demonstrates that she recently just had her PEG tube changed due to dislocation of the tube. This was done on the . We do attempt to flush the tube however this is unsuccessful. The patient cannot provide any history - Related Data Home Medications Medication Instructions Recorded Confirmed LORazepam [Ativan] 1 mg PEG/G-TUBE DAILY PRN 03/05/16 08/17/20 Levothyroxine Sodium 112 mcg PEG/G-TUBE DAILY 03/05/16 08/17/20 Acetaminophen Tab [Tylenol] 650 mg PEG/G-TUBE Q4H PRN 08/04/20 08/17/20 Amiodarone [Cordarone] 200 mg PEG/G-TUBE DAILY 08/04/20 08/17/20 Apixaban [Eliquis] 5 mg PEG/G-TUBE BID 08/04/20 08/17/20 Aspirin EC [Ecotrin Low Dose] 81 mg PEG/G-TUBE DAILY 08/04/20 08/17/20 Atorvastatin Calcium [Lipitor] 40 mg PEG/G-TUBE HS 08/04/20 08/17/20 Eslicarbazepine Acetate [Aptiom] 600 mg PEG/G-TUBE DAILY 08/04/20 08/17/20 Famotidine [Pepcid] 20 mg PEG/G-TUBE BID 08/04/20 08/17/20 Ketoconazole 2% Cream [Nizoral 2%] 1 applic TOPICAL BID PRN 08/04/20 08/17/20 Magnesium Hydroxide [Milk of 2,400 mg PEG/G-TUBE DAILY PRN 08/04/20 08/17/20 Magnesia] Magnesium Oxide 400 mg PEG/G-TUBE Q12H 08/04/20 08/17/20 Metoprolol Tartrate [Lopressor] 75 mg PEG/G-TUBE Q12H 08/04/20 08/17/20 Sennosides [Senna] 17.2 mg PEG/G-TUBE HS 08/04/20 08/17/20 guaiFENesin [guaiFENesin Oral 200 mg PEG/G-TUBE Q4H PRN 08/04/20 08/17/20 Solution] polyethylene glycoL 3350 [Miralax] 17 gm PEG/G-TUBE DAILY 08/04/20 08/17/20 Menthol-Zinc Oxide Oint 1 applic TOPICAL TID PRN 08/17/20 08/17/20 [Calmoseptine Oint] Previous Rx's Medication Instructions Recorded Baclofen [Lioresal] 10 mg PEG/G-TUBE TID PRN #0 08/13/20 Allergies Allergy/AdvReac Type Severity Reaction Status Date / Time ciprofloxacin [From Cipro] Allergy Unknown Verified 08/17/20 13:03 ciprofloxacin HCl Allergy Unknown Verified 08/17/20 13:03 [From Cipro] doxycycline Allergy Unknown Verified 08/17/20 13:03 Hydantoins Allergy Unknown Verified 08/17/20 13:03 levofloxacin [From Levaquin] Allergy Unknown Verified 08/17/20 13:03 penicillin V Allergy Unknown Verified 08/17/20 13:03 phenytoin sodium Allergy Unknown Verified 08/17/20 13:03 [From Dilantin] phenytoin sodium extended Allergy Unknown Verified 08/17/20 13:03 [From Dilantin] Quinolones Allergy Unknown Verified 08/17/20 13:03 Sulfa (Sulfonamide Allergy Unknown Verified 08/17/20 13:03 Antibiotics) sulfamethoxazole Allergy Unknown Verified 08/17/20 13:03 [From Bactrim] Tetracyclines Allergy Unknown Verified 08/17/20 13:03 trimethoprim [From Bactrim] Allergy Unknown Verified 08/17/20 13:03 yellow dye Allergy Unknown Verified 08/17/20 13:03 Review of Systems ROS Statement: Those systems with pertinent positive or pertinent negative responses have been documented in the HPI. ROS Other: All systems not noted in ROS Statement are negative. Past Medical History Past Medical History: Heart Failure, GERD/Reflux, Seizure Disorder, Thyroid Disorder Additional Past Medical History / Comment(s): past constipation and afc home stated past bowel obstruction,incont of urine,SACRAL WOUND, epilepsy no seizure in at least 2 years since shes been at [facility] severe mentally handicapped,cerebral palsy, w/c bound, ABLE TO TALK SOME AND STAFF STATED SHE IS REPETITVE WITH WORDS AT TIMES. ON A SOFT CHOPPED FOOD DIET, NEEDS TO BE WATCHED WHEN EATS BECAUSE SHE WILL SHOVE A LOT OF FOOD IN HER MOUTH AT ONE TIME AND NEED TO OFFER FLUIDS. History of Any Multi-Drug Resistant Organisms: MRSA Date of last positivie culture/infection: 07/05/2015 MDRO Source:: buttock Past Surgical History: Hysterectomy, Tonsillectomy Additional Past Surgical History / Comment(s): COLOSTOMY, i&d/closure of sacral wound, PEG tube recently Past Anesthesia/Blood Transfusion Reactions: No Reported Reaction Past Psychological History: No Psychological Hx Reported Smoking Status: Never smoker Past Alcohol Use History: None Reported Past Drug Use History: None Reported - Past Family History Father Family Medical History: Unable to Obtain Mother Family Medical History: Unable to Obtain General Exam Limitations: altered mental status General appearance: alert, in no apparent distress GI/Abdominal exam: Present: other (peg tube left upper quadrant) Course Vital Signs 08/17/20 08/17/20 11:44 13:31 Temperature 98.4 F Pulse Rate 64 62 Respiratory 20 18 Rate Blood Pressure 105/50 121/61 O2 Sat by Pulse 98 98 Oximetry Procedures - Feeding Tube Replacement Reason for Replacement: not functioning/damaged Initial Tube Inserted: greater than 2 weeks Type of Tube: gastrostomy Use of Tube: medications and feeding Insertion Site Prior to Procedure: clean Tube Used for Reinsertion: other (Roshan 20 [place]) [place] Tube Size (F): 20 Balloon Size (mls): 10 Verification of Placement: gastrografin injection Tube Secured by: G-tube attachment device Patient Tolerated Procedure: well, no complications Medical Decision Making - Medical Decision Making Upon arrival patient is placed into room 26. PEG tube will not flush at this time. I did replace the patient's PEG tube with a 20-[place] tube out difficulty. She is sent over for a tube placement x-ray. Abdominal x-ray demonstrates PEG tube to be within the gastric body. Patient needs to be stopped for Covid in order to return. This is performed and the patient is currently awaiting transport back Disposition Clinical Impression: PEG tube malfunction Disposition: HOME SELF-CARE Condition: Stable Instructions (If sedation given, give patient instructions): PEG Tube Insertion (DC) Is patient prescribed a controlled substance at d/c from ED?: No Referrals: Vitaliy Mendes MD [Primary Care Provider] - 1-2 days Time of Disposition: 14:13
== END 2020-08-17 15:36 | disposition home or self-care (01) ==
LOC: EC 11:43
DX: K94.23 Gastrostomy malfunction (principal); I50.9 Heart failure, unspecified; K21.9 Gastro-esophageal reflux disease without esophagitis; G40.909 Epilepsy, unspecified, not intractable, without status epilepticus; E07.9 Disorder of thyroid, unspecified; Z79.890 Hormone replacement therapy; Z79.899 Other long term (current) drug therapy; Z88.0 Allergy status to penicillin; Z88.1 Allergy status to other antibiotic agents; Z88.2 Allergy status to sulfonamides; Z88.8 Allergy status to other drugs, medicaments and biological substances; Z91.041 Radiographic dye allergy status; Z90.49 Acquired absence of other specified parts of digestive tract; Z86.14 Personal history of Methicillin resistant Staphylococcus aureus infection; Z20.828 Contact with and (suspected) exposure to other viral communicable diseases
CPT/HCPCS: 74019; 99283; 43762; U0003

== ENCOUNTER 2020-08-22 19:21 | Emergency (ER) | payer MEDICARE, OTHER ==
--- NOTE | 2020-08-22 20:00 | ED ---
General Adult HPI - General Chief complaint: Shortness of Breath Stated complaint: ARCELIA Time Seen by Provider: 08/22/20 19:25 Source: EMS, RN notes reviewed, old records reviewed Mode of arrival: EMS Limitations: altered mental status - History of Present Illness Initial comments: This is a 70-year-old female who presents emergency Department with severe developmental delay as well as cerebral palsy and quadriplegia. Patient has a seizure history as well. Patient is sent in from the residential and the only history we have obtained from EMS is that they wanted her to have a comatose and that she was having some shortness of breath. Patient has had no fever that we have seen any documentation of she has no family member or caregiver with her. - Related Data Home Medications Medication Instructions Recorded Confirmed LORazepam [Ativan] 1 mg PEG/G-TUBE DAILY PRN 03/05/16 08/17/20 Levothyroxine Sodium 112 mcg PEG/G-TUBE DAILY 03/05/16 08/17/20 Acetaminophen Tab [Tylenol] 650 mg PEG/G-TUBE Q4H PRN 08/04/20 08/17/20 Amiodarone [Cordarone] 200 mg PEG/G-TUBE DAILY 08/04/20 08/17/20 Apixaban [Eliquis] 5 mg PEG/G-TUBE BID 08/04/20 08/17/20 Aspirin EC [Ecotrin Low Dose] 81 mg PEG/G-TUBE DAILY 08/04/20 08/17/20 Atorvastatin Calcium [Lipitor] 40 mg PEG/G-TUBE HS 08/04/20 08/17/20 Eslicarbazepine Acetate [Aptiom] 600 mg PEG/G-TUBE DAILY 08/04/20 08/17/20 Famotidine [Pepcid] 20 mg PEG/G-TUBE BID 08/04/20 08/17/20 Ketoconazole 2% Cream [Nizoral 2%] 1 applic TOPICAL BID PRN 08/04/20 08/17/20 Magnesium Hydroxide [Milk of 2,400 mg PEG/G-TUBE DAILY PRN 08/04/20 08/17/20 Magnesia] Magnesium Oxide 400 mg PEG/G-TUBE Q12H 08/04/20 08/17/20 Metoprolol Tartrate [Lopressor] 75 mg PEG/G-TUBE Q12H 08/04/20 08/17/20 Sennosides [Senna] 17.2 mg PEG/G-TUBE HS 08/04/20 08/17/20 guaiFENesin [guaiFENesin Oral 200 mg PEG/G-TUBE Q4H PRN 08/04/20 08/17/20 Solution] polyethylene glycoL 3350 [Miralax] 17 gm PEG/G-TUBE DAILY 08/04/20 08/17/20 Menthol-Zinc Oxide Oint 1 applic TOPICAL TID PRN 08/17/20 08/17/20 [Calmoseptine Oint] Previous Rx's Medication Instructions Recorded Baclofen [Lioresal] 10 mg PEG/G-TUBE TID PRN #0 08/13/20 Allergies Allergy/AdvReac Type Severity Reaction Status Date / Time ciprofloxacin [From Cipro] Allergy Unknown Verified 08/22/20 19:27 ciprofloxacin HCl Allergy Unknown Verified 08/22/20 19:27 [From Cipro] doxycycline Allergy Unknown Verified 08/22/20 19:27 Hydantoins Allergy Unknown Verified 08/22/20 19:27 levofloxacin [From Levaquin] Allergy Unknown Verified 08/22/20 19:27 penicillin V Allergy Unknown Verified 08/22/20 19:27 phenytoin sodium Allergy Unknown Verified 08/22/20 19:27 [From Dilantin] phenytoin sodium extended Allergy Unknown Verified 08/22/20 19:27 [From Dilantin] Quinolones Allergy Unknown Verified 08/22/20 19:27 Sulfa (Sulfonamide Allergy Unknown Verified 08/22/20 19:27 Antibiotics) sulfamethoxazole Allergy Unknown Verified 08/22/20 19:27 [From Bactrim] Tetracyclines Allergy Unknown Verified 08/22/20 19:27 trimethoprim [From Bactrim] Allergy Unknown Verified 08/22/20 19:27 yellow dye Allergy Unknown Verified 08/22/20 19:27 Review of Systems ROS Statement: Those systems with pertinent positive or pertinent negative responses have been documented in the HPI. ROS Other: All systems not noted in ROS Statement are negative. Past Medical History Past Medical History: Heart Failure, GERD/Reflux, Seizure Disorder, Thyroid Disorder Additional Past Medical History / Comment(s): past constipation and afc home stated past bowel obstruction,incont of urine,SACRAL WOUND, epilepsy no seizure in at least 2 years since shes been at [facility] severe mentally handicapped,cerebral palsy, w/c bound, ABLE TO TALK SOME AND STAFF STATED SHE IS REPETITVE WITH WORDS AT TIMES. ON A SOFT CHOPPED FOOD DIET, NEEDS TO BE WATCHED WHEN EATS BECAUSE SHE WILL SHOVE A LOT OF FOOD IN HER MOUTH AT ONE TIME AND NEED TO OFFER FLUIDS. History of Any Multi-Drug Resistant Organisms: MRSA Date of last positivie culture/infection: 07/05/2015 MDRO Source:: buttock Past Surgical History: Hysterectomy, Tonsillectomy Additional Past Surgical History / Comment(s): COLOSTOMY, i&d/closure of sacral wound, PEG tube recently Past Anesthesia/Blood Transfusion Reactions: No Reported Reaction Past Psychological History: No Psychological Hx Reported Smoking Status: Never smoker Past Alcohol Use History: None Reported Past Drug Use History: None Reported - Past Family History Father Family Medical History: Unable to Obtain Mother Family Medical History: Unable to Obtain General Exam - General Exam Comments Initial Comments: GENERAL: Patient is well-developed and well-nourished. Patient is nontoxic and well- hydrated and is in no acute distress. Patient was actually 100% on 2 L ENT: Neck is soft and supple. No significant lymphadenopathy is noted. Oropharynx is clear. Moist mucous membranes. Neck has full range of motion without eliciting any pain. EYES: The sclera were anicteric and conjunctiva were pink and moist. Extraocular movements were intact and pupils were equal round and reactive to light. Eyelids were unremarkable. PULMONARY: Difficult to auscultate this patient does not follow commands and she was not taking deep breaths. CARDIOVASCULAR: There is a regular rate and rhythm without any murmurs gallops or rubs. ABDOMEN: Soft and nontender with normal bowel sounds. SKIN: Skin is clear with no lesions or rashes and otherwise unremarkable. NEUROLOGIC: Patient is alert and oriented 0. We were told EMS that this was her baseline MUSCULOSKELETAL: Patient unable to follow commands unable to assess whether she couldn't move her extremities. LYMPHATICS: No significant lymphadenopathy is noted PSYCHIATRIC: Unable to assess Limitations: altered mental status Course Vital Signs 08/22/20 19:22 Temperature 98.4 F Pulse Rate 62 Respiratory 16 Rate Blood Pressure 127/69 O2 Sat by Pulse 100 Oximetry Medical Decision Making - Medical Decision Making Chest x-ray shows no acute abnormality. COVID Test was normal. Patient was satting 100% on 2 L throughout her whole he stay and showed no respiratory distress at all. Patient's sodium comes back at 119 swelling but the patient spoke with some sound accepted admission I wrote admitting orders. - Lab Data Result diagrams: 08/22/20 20:54 08/22/20 20:54 Lab Results 08/22/20 08/22/20 08/22/20 Range/Units 20:37 20:54 20:54 WBC 5.4 (3.8-10.6) k/uL RBC 3.41 L (3.80-5.40) m/uL Hgb 9.7 L (11.4-16.0) gm/dL Hct 29.5 L (34.0-46.0) % MCV 86.5 (80.0-100.0) fL MCH 28.3 (25.0-35.0) pg MCHC 32.7 (31.0-37.0) g/dL RDW 16.1 H (11.5-15.5) % Plt Count 271 (150-450) k/uL MPV 7.6 Neutrophils % 61 % Lymphocytes % 29 % Monocytes % 6 % Eosinophils % 2 % Basophils % 1 % Neutrophils # 3.3 (1.3-7.7) k/uL Lymphocytes # 1.5 (1.0-4.8) k/uL Monocytes # 0.3 (0-1.0) k/uL Eosinophils # 0.1 (0-0.7) k/uL Basophils # 0.0 (0-0.2) k/uL Anisocytosis Slight Sodium 119 L* (137-145) mmol/L Potassium 4.9 (3.5-5.1) mmol/L Chloride 86 L (98-107) mmol/L Carbon Dioxide 28 (22-30) mmol/L Anion Gap 5 mmol/L BUN 16 (7-17) mg/dL Creatinine 0.39 L (0.52-1.04) mg/dL Est GFR (CKD-EPI)AfAm >90 (>60 ml/min/1.73 sqM) Est GFR (CKD-EPI)NonAf >90 (>60 ml/min/1.73 sqM) Glucose 102 H (74-99) mg/dL Calcium 8.6 (8.4-10.2) mg/dL Total Bilirubin 0.5 (0.2-1.3) mg/dL AST 42 H (14-36) U/L ALT 32 (4-34) U/L Alkaline Phosphatase 132 H (38-126) U/L Total Protein 7.2 (6.3-8.2) g/dL Albumin 3.6 (3.5-5.0) g/dL Coronavirus (PCR) Not Detected (Not Detectd) Disposition Clinical Impression: Dyspnea, Hyponatremia Disposition: ADMITTED IP TO THIS HOSP Is patient prescribed a controlled substance at d/c from ED?: No Referrals: Vitaliy Mendes MD [Primary Care Provider] - 1-2 days Time of Disposition: 21:17
--- NOTE | 2020-08-22 20:31 | XR ---
EXAMINATION TYPE: XR chest 2V DATE OF EXAM: 08/22/2020 COMPARISON: 08/11/2020 HISTORY: Short of breath There is poor inspiration. There is elevation of the diaphragms with atelectasis at the lung bases. T here is some left-sided perihilar pulmonary infiltrate. There is thickening of the left major fissure . IMPRESSION: Poor inspiration that is similar to old exam. There is some increasing left side perihila r pulmonary infiltrates compared to recent exam. Significant atelectasis at the lung bases. No obviou s heart failure.
[2020-08-22 21:13] LABS: Anisocytosis Slight; Basophils % (A) 1 %; Eosinophils # (A) 0.1 k/uL (0-0.7); Eosinophils % (A) 2 %; HCT 29.5 % (34.0-46.0); HGB 9.7 gm/dL (11.4-16.0); Lymphocytes # (A) 1.5 k/uL (1.0-4.8); Lymphocytes % (A) 29 %; MCH 28.3 pg (25.0-35.0); MCHC 32.7 g/dL (31.0-37.0); MCV 86.5 fL (80.0-100.0); Mean Platelet Volume 7.6; Monocytes # (A) 0.3 k/uL (0-1.0); Monocytes % (A) 6 %; Neutrophils # (A) 3.3 k/uL (1.3-7.7); Neutrophils % (A) 61 %; Platelet Count 271 k/uL (150-450); RBC 3.41 m/uL (3.80-5.40); RDW 16.1 % (11.5-15.5); WBC 5.4 k/uL (3.8-10.6)
[2020-08-22 21:16] LABS: ALT 32 U/L (4-34); AST 42 U/L (14-36); African American GFR (CKD) >90 (>60 ml/min/1.73 sqM); Albumin 3.6 g/dL (3.5-5.0); Alkaline Phosphatase 132 U/L (38-126); Anion Gap 5 mmol/L; Blood Urea Nitrogen 16 mg/dL (7-17); Calcium 8.6 mg/dL (8.4-10.2); Carbon Dioxide 28 mmol/L (22-30); Chloride 86 mmol/L (98-107); Glucose 102 mg/dL (74-99); Non-African American GFR(CKD) >90 (>60 ml/min/1.73 sqM); Potassium 4.9 mmol/L (3.5-5.1); Total Bilirubin 0.5 mg/dL (0.2-1.3); Total Protein 7.2 g/dL (6.3-8.2)
[2020-08-22 21:17] LABS: Sodium 119 mmol/L (137-145)
[2020-08-22] MEDS ORDERED: SODIUM CHLORIDE 0.9% 1,000 ML IV ONE (21:19)
[2020-08-22 21:35] VITALS: TEMP 97.8
[2020-08-22] MEDS ORDERED: LORazepam 1 MG TAB PEG/G-TUBE PRN (22:54)
--- NOTE | 2020-08-22 22:56 | P.HPIM ---
History of Present Illness H&P Date: 08/22/20 Patient is a 70-year-old female with a PMH of cerebral palsy, persistent A. fib on Eliquis, bedbound and minimally verbal at baseline, PEG tube, hypothyroidism, and multiple recent presentations to the hospital, a resident of [facility] in [place] who was sent in for evaluation of shortness of breath. No meaningful history could be ascertained from the patient. The patient was watching television in her room comfortably and she would answer most questions with "good". As per chart review, the patient was noted febrile in the assisted. Chest x-ray in the emergency room had revealed poor inspiration with left perihilar infiltrate increasing from prior exam along with left basilar atelectasis. Laboratory evaluation revealed a sodium of 119 (previously 136 at discharge on 08/13). Chloride was 86, BUN 16, creatinine 0.39, WBC count 5.4, hemoglobin 9.7, and coronavirus testing negative. Review of Systems ROS unobtainable: due to mental status Past Medical History Past Medical History: Heart Failure, GERD/Reflux, Seizure Disorder, Thyroid Disorder Additional Past Medical History / Comment(s): past constipation and afc home stated past bowel obstruction,incont of urine,SACRAL WOUND, epilepsy no seizure in at least 2 years since shes been at [facility] severe mentally handicapped,cerebral palsy, w/c bound, ABLE TO TALK SOME AND STAFF STATED SHE IS REPETITVE WITH WORDS AT TIMES. ON A SOFT CHOPPED FOOD DIET, NEEDS TO BE WATCHED WHEN EATS BECAUSE SHE WILL SHOVE A LOT OF FOOD IN HER MOUTH AT ONE TIME AND NEED TO OFFER FLUIDS. History of Any Multi-Drug Resistant Organisms: MRSA Date of last positivie culture/infection: 07/05/2015 MDRO Source:: buttock Past Surgical History: Hysterectomy, Tonsillectomy Additional Past Surgical History / Comment(s): COLOSTOMY, i&d/closure of sacral wound, PEG tube recently Past Anesthesia/Blood Transfusion Reactions: No Reported Reaction Past Psychological History: No Psychological Hx Reported Smoking Status: Never smoker Past Alcohol Use History: None Reported Past Drug Use History: None Reported - Past Family History Father Family Medical History: Unable to Obtain Mother Family Medical History: Unable to Obtain Medications and Allergies Home Medications Medication Instructions Recorded Confirmed Type LORazepam [Ativan] 1 mg PEG/G-TUBE DAILY PRN 03/05/16 08/22/20 History Levothyroxine Sodium 112 mcg PEG/G-TUBE DAILY 03/05/16 08/22/20 History Acetaminophen Tab [Tylenol] 650 mg PEG/G-TUBE Q4H PRN 08/04/20 08/22/20 History Amiodarone [Cordarone] 200 mg PEG/G-TUBE DAILY 08/04/20 08/22/20 History Apixaban [Eliquis] 5 mg PEG/G-TUBE BID 08/04/20 08/22/20 History Aspirin EC [Ecotrin Low Dose] 81 mg PEG/G-TUBE DAILY 08/04/20 08/22/20 History Atorvastatin Calcium [Lipitor] 40 mg PEG/G-TUBE HS 08/04/20 08/22/20 History Eslicarbazepine Acetate [Aptiom] 600 mg PEG/G-TUBE DAILY 08/04/20 08/22/20 History Famotidine [Pepcid] 20 mg PEG/G-TUBE BID 08/04/20 08/22/20 History Ketoconazole 2% Cream [Nizoral 2%] 1 applic TOPICAL BID PRN 08/04/20 08/22/20 History Magnesium Hydroxide [Milk of 2,400 mg PEG/G-TUBE DAILY PRN 08/04/20 08/22/20 History Magnesia] Magnesium Oxide 400 mg PEG/G-TUBE Q12H 08/04/20 08/22/20 History Metoprolol Tartrate [Lopressor] 75 mg PEG/G-TUBE Q12H 08/04/20 08/22/20 History Sennosides [Senna] 17.2 mg PEG/G-TUBE HS 08/04/20 08/22/20 History guaiFENesin [guaiFENesin Oral 200 mg PEG/G-TUBE Q4H PRN 08/04/20 08/22/20 History Solution] polyethylene glycoL 3350 [Miralax] 17 gm PEG/G-TUBE DAILY 08/04/20 08/22/20 History Baclofen [Lioresal] 10 mg PEG/G-TUBE TID PRN #0 08/13/20 08/22/20 Rx Menthol-Zinc Oxide Oint 1 applic TOPICAL TID PRN 08/17/20 08/22/20 History [Calmoseptine Oint] Allergies Allergy/AdvReac Type Severity Reaction Status Date / Time ciprofloxacin [From Cipro] Allergy Unknown Verified 08/22/20 22:09 ciprofloxacin HCl Allergy Unknown Verified 08/22/20 22:09 [From Cipro] doxycycline Allergy Unknown Verified 08/22/20 22:09 Hydantoins Allergy Unknown Verified 08/22/20 22:09 levofloxacin [From Levaquin] Allergy Unknown Verified 08/22/20 22:09 penicillin V Allergy Unknown Verified 08/22/20 22:09 phenytoin sodium Allergy Unknown Verified 08/22/20 22:09 [From Dilantin] phenytoin sodium extended Allergy Unknown Verified 08/22/20 22:09 [From Dilantin] Quinolones Allergy Unknown Verified 08/22/20 22:09 Sulfa (Sulfonamide Allergy Unknown Verified 08/22/20 22:09 Antibiotics) sulfamethoxazole Allergy Unknown Verified 08/22/20 22:09 [From Bactrim] Tetracyclines Allergy Unknown Verified 08/22/20 22:09 trimethoprim [From Bactrim] Allergy Unknown Verified 08/22/20 22:09 yellow dye Allergy Unknown Verified 08/22/20 22:09 Physical Exam Vitals: Vital Signs Temp Pulse Resp BP Pulse Ox 08/22/20 21:34 97.8 F 60 17 118/69 100 08/22/20 19:22 98.4 F 62 16 127/69 100 Intake and Output 08/22/20 08/22/20 08/22/20 06:59 14:59 22:59 Other: Weight 70.216 kg General: non toxic, no distress, appears at stated age, normal weight Derm: no unusual rashes/lesions no unusual ecchymoses, warm, dry Head: atraumatic, normocephalic, symmetric Eyes: EOMI, no lid lag, anicteric sclera, pupils equal round reactive to light ENT: Nose and ears atraumatic, no thrush, no pharyngeal erythema Neck: No thyromegaly, no cervical lymphadenopathy, trachea midline, supple Mouth: no lip lesion, mucus membranes dry Cardiovascular: S1S2 reg, no murmur, positive posterior tibial pulse bilateral, no edema, capillary refill less than 2 seconds Lungs: CTA bilateral, no rhonchi, no rales , no accessory muscle use Abdominal: soft, PEG tube in place, colostomy bag with moderate amount of stool, nontender to palpation, no guarding, no appreciable organomegaly Ext: Bilateral diffuse contractures involving hands and legs Neuro: CN II-XI grossly intact, no focal neuro deficits noted Psych: Awake, not answering questions appropriately Results CBC & Chem 7: 08/22/20 20:54 08/22/20 20:54 Labs: Abnormal Lab Results - Last 24 Hours (Table) 08/22/20 08/22/20 Range/Units 20:54 20:54 RBC 3.41 L (3.80-5.40) m/uL Hgb 9.7 L (11.4-16.0) gm/dL Hct 29.5 L (34.0-46.0) % RDW 16.1 H (11.5-15.5) % Sodium 119 L* (137-145) mmol/L Chloride 86 L (98-107) mmol/L Creatinine 0.39 L (0.52-1.04) mg/dL Glucose 102 H (74-99) mg/dL AST 42 H (14-36) U/L Alkaline Phosphatase 132 H (38-126) U/L Assessment and Plan Plan: Severe hyponatremia -Check urine and serum studies to calculte FeNa and further classify the hyponatremia -Nephrology consult -C/w NS 50 cc/hr -Neurochecks Shortness of breath -Coronavirus testing negative -Low suspicion for pneumonia Chronic normocytic anemia -At baseline Chronic conditions: Hypothyroidism, persistent A. fib -Continue with home meds DVT prophylaxis -Eliquis The patient is admitted with an anticipated greater than 2 midnight stay for evaluation of hyponatremia CODE STATUS: Full Code Discussed with: RN, Patient Anticipated discharge date: 3-[address]: residential A total of 40 minutes was spent on the care of this complex patient more than 50% of the time was spent in counseling and care coordination.
[2020-08-23 00:06] LABS: Creatinine,Urine Random 43.4 mg/dL
[2020-08-23] MEDS: METOPROLOL TARTRATE 50 MG TAB PEG/G-TUBE SCH ×2 (00:36→11:24)
[2020-08-23] MEDS ORDERED: LEVOTHYROXINE 112 MCG TAB PEG/G-TUBE SCH (06:30)
[2020-08-23 08:59] LABS: HCT 32.2 % (34.0-46.0); HGB 10.2 gm/dL (11.4-16.0); MCH 27.5 pg (25.0-35.0); MCHC 31.6 g/dL (31.0-37.0); MCV 86.9 fL (80.0-100.0); Mean Platelet Volume 8.4; Platelet Count 236 k/uL (150-450); WBC 6.4 k/uL (3.8-10.6)
[2020-08-23] MEDS ORDERED: MAGNESIUM HYDROXIDE 2,400 MG/10 ML CUP PEG/G-TUBE PRN (09:00)
[2020-08-23] MEDS ORDERED: APIXABAN 5 MG TAB PEG/G-TUBE SCH (09:00)
[2020-08-23] MEDS ORDERED: NON FORMULARY DRUG (Eslicarbazepine Acetate [Aptiom] 600 MG Tablet) PEG/G-TUBE SCH (09:00)
[2020-08-23] MEDS ORDERED: BACLOFEN 10 MG TAB PEG/G-TUBE PRN (09:00)
[2020-08-23] MEDS ORDERED: CLOTRIMAZOLE 1% CREAM 15 GM TUBE TOPICAL PRN (09:00)
[2020-08-23] MEDS ORDERED: AMIODARONE 200 MG TAB PEG/G-TUBE SCH (09:00)
[2020-08-23] MEDS ORDERED: MAGNESIUM OXIDE 400 MG TAB PEG/G-TUBE SCH (09:00)
[2020-08-23] MEDS ORDERED: FAMOTIDINE 20 MG TAB PEG/G-TUBE SCH (09:00)
[2020-08-23] MEDS ORDERED: polyethylene glycoL 3350 17 GM POWD.PACK PEG/G-TUBE SCH (09:00)
[2020-08-23] MEDS ORDERED: ASPIRIN 81 MG PEG/G-TUBE SCH (09:00)
[2020-08-23 09:23] LABS: African American GFR (CKD) >90 (>60 ml/min/1.73 sqM); Anion Gap 6 mmol/L; Blood Urea Nitrogen 14 mg/dL (7-17); Calcium 8.7 mg/dL (8.4-10.2); Carbon Dioxide 26 mmol/L (22-30); Chloride 88 mmol/L (98-107); Glucose 95 mg/dL (74-99); Magnesium 1.6 mg/dL (1.6-2.3); Non-African American GFR(CKD) >90 (>60 ml/min/1.73 sqM); Potassium 4.6 mmol/L (3.5-5.1); Sodium 120 mmol/L (137-145)
[2020-08-23 10:59] VITALS: BP 141/71; PULSE 59; RESP 18
--- NOTE | 2020-08-23 16:14 | P.DS ---
Providers Expected date of discharge: 08/23/20 Primary care physician: Vitaliy Mendes MD Hospital Course: 70 year old woman with mental disability secondary to cerebral palsy, permanent AFib on eliquis, bedbound at baseline, presented from [facility] with increasing dyspnea. Patient was found to be severely hyponatremic in the ER and was admitted by hospitalist service for this reason. However, upon my evaluation, it appears patient's legal guardian and family and sought a court order for patient to return to [facility] with plan for hospice services. From my understanding, patient has been declining rapidly in several months, and they do not feel that aggressive medical care is in her best wishes. I called Kelly, legal guardian, myself and we discussed this over the phone. Patient was discharged with plan to return to facility with hospice overlay. General: non toxic, no distress, awake, interactive Head: atraumatic, normocephalic, symmetric Neck: trachea midline, supple Cardiovascular: perfusing all extremities well Lungs: breathing comfortably with no accessory muscle use Plan - Discharge Summary New Discharge Prescriptions: Continue LORazepam [Ativan] 1 mg PEG/G-TUBE DAILY PRN PRN Reason: Seizures OVER 3 MINUTES Acetaminophen Tab [Tylenol] 650 mg PEG/G-TUBE Q4H PRN PRN Reason: Pain Sennosides [Senna] 17.2 mg PEG/G-TUBE HS polyethylene glycoL 3350 [Miralax] 17 gm PEG/G-TUBE DAILY Magnesium Hydroxide [Milk of Magnesia] 2,400 mg PEG/G-TUBE DAILY PRN PRN Reason: Constipation Magnesium Oxide 400 mg PEG/G-TUBE Q12H Famotidine [Pepcid] 20 mg PEG/G-TUBE BID Eslicarbazepine Acetate [Aptiom] 600 mg PEG/G-TUBE DAILY guaiFENesin [guaiFENesin Oral Solution] 200 mg PEG/G-TUBE Q4H PRN PRN Reason: Cough Baclofen [Lioresal] 10 mg PEG/G-TUBE TID PRN #0 PRN Reason: Spasms Menthol-Zinc Oxide Oint [Calmoseptine Oint] 1 applic TOPICAL TID PRN PRN Reason: Rash Discontinued Levothyroxine Sodium 112 mcg PEG/G-TUBE DAILY Ketoconazole 2% Cream [Nizoral 2%] 1 applic TOPICAL BID PRN PRN Reason: Rash Metoprolol Tartrate [Lopressor] 75 mg PEG/G-TUBE Q12H Apixaban [Eliquis] 5 mg PEG/G-TUBE BID Atorvastatin Calcium [Lipitor] 40 mg PEG/G-TUBE HS Aspirin EC [Ecotrin Low Dose] 81 mg PEG/G-TUBE DAILY Amiodarone [Cordarone] 200 mg PEG/G-TUBE DAILY Discharge Medication List LORazepam [Ativan] 1 mg PEG/G-TUBE DAILY PRN 03/05/16 [History] Acetaminophen Tab [Tylenol] 650 mg PEG/G-TUBE Q4H PRN 08/04/20 [History] Eslicarbazepine Acetate [Aptiom] 600 mg PEG/G-TUBE DAILY 08/04/20 [History] Famotidine [Pepcid] 20 mg PEG/G-TUBE BID 08/04/20 [History] Magnesium Hydroxide [Milk of Magnesia] 2,400 mg PEG/G-TUBE DAILY PRN 08/04/20 [History] Magnesium Oxide 400 mg PEG/G-TUBE Q12H 08/04/20 [History] Sennosides [Senna] 17.2 mg PEG/G-TUBE HS 08/04/20 [History] guaiFENesin [guaiFENesin Oral Solution] 200 mg PEG/G-TUBE Q4H PRN 08/04/20 [History] polyethylene glycoL 3350 [Miralax] 17 gm PEG/G-TUBE DAILY 08/04/20 [History] Baclofen [Lioresal] 10 mg PEG/G-TUBE TID PRN #0 08/13/20 [Rx] Menthol-Zinc Oxide Oint [Calmoseptine Oint] 1 applic TOPICAL TID PRN 08/17/20 [History] Follow up Appointment(s)/Referral(s): Vitaliy Mendes MD [Primary Care Provider] - 1-2 days Discharge Disposition: HOME SELF-CARE
[2020-08-23] MEDS ORDERED: ATORVASTATIN 40 MG TAB PEG/G-TUBE SCH (21:00)
== END 2020-08-23 14:30 | disposition home or self-care (01) ==
LOC: EC 19:21 → UNDOADMIN 21:19 → 3SCARD 21:19 → EC 08-23 14:30
DX: E87.1 Hypo-osmolality and hyponatremia (principal); R06.02 Shortness of breath; E03.9 Hypothyroidism, unspecified; I48.19 Other persistent atrial fibrillation; D64.9 Anemia, unspecified; G40.909 Epilepsy, unspecified, not intractable, without status epilepticus; K21.9 Gastro-esophageal reflux disease without esophagitis; Z79.890 Hormone replacement therapy; Z79.899 Other long term (current) drug therapy; Z79.01 Long term (current) use of anticoagulants; Z79.82 Long term (current) use of aspirin; Z88.1 Allergy status to other antibiotic agents; Z88.0 Allergy status to penicillin; Z88.8 Allergy status to other drugs, medicaments and biological substances; Z88.2 Allergy status to sulfonamides; Z91.048 Other nonmedicinal substance allergy status; Z93.3 Colostomy status; Z20.828 Contact with and (suspected) exposure to other viral communicable diseases
CPT/HCPCS: 36415; 71046; 80048; 80053; 82570; 83735; 83930; 83935; 84300; 84540; 85025; 85027; 87040; 87635; 96360; 96361; 99285

== ENCOUNTER 2020-09-22 11:40 | Emergency (ER) | payer MEDICARE, OTHER ==
[2020-09-22 11:49] VITALS: RESP 18
--- NOTE | 2020-09-22 13:05 | XR ---
EXAMINATION TYPE: XR KUB DATE OF EXAM: 09/22/2020 Comparison: 08/04/2020 Clinical History: 70-year-old female peg o gram, s/p peg placement Findings: PEG tube is demonstrated. The technologist injected contrast material through the PEG tube and there is satisfactory opacification of the gastric lumen. Nonobstructive bowel gas pattern. Impression: Injection through the PEG tube shows appropriate opacification of the gastric lumen.
--- NOTE | 2020-09-22 13:08 | ED ---
Recheck HPI - General Chief Complaint: Recheck/Abnormal Lab/Rx Stated Complaint: Peg Tube Issue Time Seen by Provider: 09/22/20 11:50 Source: EMS Mode of arrival: EMS Limitations: language barrier - History of Present Illness Initial Comments: 70-year-old female presenting today for chief complaint of sent for peg tube replacement as it wont flush and a rapid covid test, no symptoms. Patient peg tube would not flush today she was thus sent to the emergency department today for replacement. Her facility also wanted a rapid comatose before return they deny symptoms or additional new symptoms that would need evaluation today in the ER. patient nonverbal. consent from guardian obtained personally for peg tube replacement. he states that the original peg tube was placed 07/21 at [facility]. - Related Data Home Medications Medication Instructions Recorded Confirmed LORazepam [Ativan] 1 mg PEG/G-TUBE DAILY PRN 03/05/16 09/22/20 Acetaminophen Tab [Tylenol] 650 mg PEG/G-TUBE Q4H PRN 08/04/20 09/22/20 Eslicarbazepine Acetate [Aptiom] 600 mg PEG/G-TUBE DAILY 08/04/20 09/22/20 Famotidine [Pepcid] 20 mg PEG/G-TUBE BID 08/04/20 09/22/20 Magnesium Hydroxide [Milk of 2,400 mg PEG/G-TUBE DAILY PRN 08/04/20 09/22/20 Magnesia] Sennosides [Senna] 17.2 mg PEG/G-TUBE HS 08/04/20 09/22/20 guaiFENesin [guaiFENesin Oral 200 mg PEG/G-TUBE Q4H PRN 08/04/20 09/22/20 Solution] polyethylene glycoL 3350 [Miralax] 17 gm PEG/G-TUBE DAILY 08/04/20 09/22/20 Menthol-Zinc Oxide Oint 1 applic TOPICAL TID PRN 08/17/20 09/22/20 [Calmoseptine Oint] Amiodarone HCl [Pacerone] 200 mg PEG/G-TUBE DAILY 09/22/20 09/22/20 Bacitracin Zinc Oint 1 applic TOPICAL BID 09/22/20 09/22/20 Baclofen [Lioresal] 10 mg PEG/G-TUBE TID 09/22/20 09/22/20 Gentamicin 0.3% Ophth Oint [Gentak 1 applic LEFT EYE BID 09/22/20 09/22/20 0.3% Ophth Oint] Hyoscyamine Sulfate [Levsin] 0.125 mg PEG/G-TUBE Q4H PRN 09/22/20 09/22/20 Ketoconazole 2% Cream [Nizoral 2%] 1 applic TOPICAL BID PRN 09/22/20 09/22/20 LORazepam [Ativan] 0.5 - 1 mg PEG/G-TUBE Q4H PRN 09/22/20 09/22/20 Metoprolol Tartrate [Lopressor] 75 mg PEG/G-TUBE BID 09/22/20 09/22/20 Morphine Sulfate [Morphine Sulfate 5 mg PEG/G-TUBE Q4H PRN 09/22/20 09/22/20 Oral Soln Conc (20 MG/ML)] Allergies Allergy/AdvReac Type Severity Reaction Status Date / Time ciprofloxacin [From Cipro] Allergy Unknown Verified 09/22/20 12:46 ciprofloxacin HCl Allergy Unknown Verified 09/22/20 12:46 [From Cipro] doxycycline Allergy Unknown Verified 09/22/20 12:46 Hydantoins Allergy Unknown Verified 09/22/20 12:46 levofloxacin [From Levaquin] Allergy Unknown Verified 09/22/20 12:46 penicillin V Allergy Unknown Verified 09/22/20 12:46 phenytoin sodium Allergy Unknown Verified 09/22/20 12:46 [From Dilantin] phenytoin sodium extended Allergy Unknown Verified 09/22/20 12:46 [From Dilantin] Quinolones Allergy Unknown Verified 09/22/20 12:46 Sulfa (Sulfonamide Allergy Unknown Verified 09/22/20 12:46 Antibiotics) sulfamethoxazole Allergy Unknown Verified 09/22/20 12:46 [From Bactrim] Tetracyclines Allergy Unknown Verified 09/22/20 12:46 trimethoprim [From Bactrim] Allergy Unknown Verified 09/22/20 12:46 yellow dye Allergy Unknown Verified 09/22/20 12:46 Review of Systems ROS Statement: Those systems with pertinent positive or pertinent negative responses have been documented in the HPI. ROS Other: All systems not noted in ROS Statement are negative. Past Medical History Past Medical History: Heart Failure, GERD/Reflux, Seizure Disorder, Thyroid Disorder Additional Past Medical History / Comment(s): past constipation and [facility] home stated past bowel obstruction,incont of urine,SACRAL WOUND, epilepsy no seizure in at least 2 [facility] severe mentally handicapped,cerebral palsy, w/c bound, ABLE TO TALK SOME AND STAFF STATED SHE IS REPETITVE WITH WORDS AT TIMES. ON A SOFT CHOPPED FOOD DIET, NEEDS TO BE WATCHED WHEN EATS BECAUSE SHE WILL SHOVE A LOT OF FOOD IN HER MOUTH AT ONE TIME AND NEED TO OFFER FLUIDS. History of Any Multi-Drug Resistant Organisms: MRSA Date of last positivie culture/infection: 07/05/2015 MDRO Source:: buttock Past Surgical History: Hysterectomy, Tonsillectomy Additional Past Surgical History / Comment(s): COLOSTOMY, i&d/closure of sacral wound, PEG tube recently Past Anesthesia/Blood Transfusion Reactions: No Reported Reaction Past Psychological History: No Psychological Hx Reported Smoking Status: Never smoker Past Alcohol Use History: None Reported Past Drug Use History: None Reported - Past Family History Father Family Medical History: Unable to Obtain Mother Family Medical History: Unable to Obtain General Exam - General Exam Comments Initial Comments: General: The patient is awake and alert, in no distress Eye: +3 mm pupils are equal, round and reactive to light, extra-ocular movements are intact. No nystagmus. There is normal conjunctiva bilaterally. No signs of icterus. Ears, nose, mouth and throat: There are moist mucous membranes and no oral lesions. Neck: The neck is supple, there is no tenderness or JVD. Cardiovascular: There is a regular rate and rhythm. No murmur, rub or gallop is appreciated. Respiratory: Lungs are clear to auscultation, respirations are non-labored, breath sounds are equal. No wheezes, stridor, rales, or rhonchi. Gastrointestinal: Soft, non-distended, non-tender abdomen without masses or organomegaly noted. There is no rebound or guarding present. Peg tube removed after multiple attempts at flushing, no resistance. No bleeding. Musculoskeletal: contracted UE and LE. radial pulses equal bilaterally 2+. Neurological: Nonverbal. contracted. Skin: Skin is warm and dry and no rashes or lesions are noted. Limitations: language barrier Course Vital Signs 09/22/20 11:44 Temperature 98.7 F Pulse Rate 61 Respiratory 18 Rate Blood Pressure 134/56 O2 Sat by Pulse 99 Oximetry Medical Decision Making - Medical Decision Making Peg tube replaced-flushed easily. appropriate placement. no complications. patients covid test taht requested by facility was (-). NO additional complaints noted by facility. pt will be dischargedd back to extended care facility. Dr Pimentel was agreeable to care plan. - Lab Data Lab Results 09/22/20 Range/Units 11:51 Coronavirus (PCR) Not Detected (Not Detectd) Disposition Clinical Impression: Encounter for imaging study to confirm gastrojejunal tube placement, Gastr ostomy tube dysfunction Disposition: HOME SELF-CARE Condition: Good Additional Instructions: Please use medication as discussed. Please follow-up with family doctor in the next 2 days. Covid test (-). Please return to emergency room if the symptoms increase or worsen or for any other concerns. Is patient prescribed a controlled substance at d/c from ED?: No Referrals: Wilner Mcknight MD [Primary Care Provider] - 1-2 days Time of Disposition: 13:08
[2020-09-22 14:28] VITALS: BP 132/84; PULSE 64; TEMP 98.4
== END 2020-09-22 15:18 | disposition home or self-care (01) ==
LOC: EC 11:40
DX: K94.23 Gastrostomy malfunction (principal); I50.9 Heart failure, unspecified; K21.9 Gastro-esophageal reflux disease without esophagitis; E07.9 Disorder of thyroid, unspecified; G40.909 Epilepsy, unspecified, not intractable, without status epilepticus; Z20.828 Contact with and (suspected) exposure to other viral communicable diseases; Z79.899 Other long term (current) drug therapy; Z88.0 Allergy status to penicillin; Z88.1 Allergy status to other antibiotic agents; Z88.2 Allergy status to sulfonamides; Z88.8 Allergy status to other drugs, medicaments and biological substances; Z91.041 Radiographic dye allergy status; Z86.14 Personal history of Methicillin resistant Staphylococcus aureus infection; Z90.710 Acquired absence of both cervix and uterus; Z90.89 Acquired absence of other organs
CPT/HCPCS: 87635; 74018; 99283; 43762; Q9967